=== PATIENT | male | born 1930 | race Caucasian/White ===

== ENCOUNTER 2016-08-14 12:47 | Inpatient (IN) | payer MEDICARE, BC, OTHER ==
[2016-08-14 13:11] LABS: Glucose,Whole Blood 100 mg/dL (75-99)
[2016-08-14] MEDS ORDERED: SODIUM CHLORIDE 0.9% 1,000 ML IV STA (13:14)
[2016-08-14] MEDS ORDERED: PIPERACILLIN-TAZOBACTAM 3.375 GM in DEXTROSE/WATER 1 50ML.BAG IVPB STA (13:50)
[2016-08-14 13:54] LABS: Appearance,Urine Clear (Clear); Bilirubin,Urine Negative (Negative); Glucose,Urine (UA) Negative (Negative); Ketones,Urine 2+ (Negative); Leukocyte Esterase,Urine Negative (Negative); Nitrite,Urine Negative (Negative); PH, Urine 5.5 (5.0-8.0); Protein,Urine Negative (Negative); Specific Gravity,Urine 1.014 (1.001-1.035); UA Billing (MACRO vs. MICRO) CHEM; Urobilinogen,Urine <2.0 mg/dL (<2.0)
[2016-08-14 13:57] LABS: Basophils # (A) 0.1 k/uL (0-0.2); Basophils % (A) 2 %; CH 35.8; CHCM 33.5; Eosinophils # (A) 0.3 k/uL (0-0.7); Eosinophils % (A) 7 %; HCT 45.5 % (39.0-53.0); HDW 2.16; HGB 15.3 gm/dL (13.0-17.5); Luc # (Auto) 0.15; Luc % (Auto) 4; Lymphocytes # (A) 0.5 k/uL (1.0-4.8); Lymphocytes % (A) 12 %; MCHC 33.7 g/dL (31.0-37.0); Macrocytosis Moderate; Mean Platelet Volume 8.1; Monocytes # (A) 0.5 k/uL (0-1.0); Monocytes % (A) 12 %; Neutrophils # (A) 2.6 k/uL (1.3-7.7); Neutrophils % (A) 65 %; RBC 4.25 m/uL (4.30-5.90); RDW 13.2 % (11.5-15.5); WBC 4.1 k/uL (3.8-10.6); WBC (Perox) 4.15
[2016-08-14 14:00] LABS: Partial Thromboplastin Time 24.2 sec (22.0-30.0); Prothrombin Time 9.9 sec (9.0-12.0)
[2016-08-14 14:21] LABS: ALT 43 U/L (21-72); AST 49 U/L (17-59); Alkaline Phosphatase 62 U/L (38-126); Anion Gap 12 mmol/L; Blood Urea Nitrogen 20 mg/dL (9-20); Calcium 9.5 mg/dL (8.4-10.2); Carbon Dioxide 25 mmol/L (22-30); Chloride 98 mmol/L (98-107); Glucose 108 mg/dL (74-99); Non-African American GFR(MDRD) >60 (>60 ml/min/1.73 sqM); Potassium 4.8 mmol/L (3.5-5.1); Sodium 135 mmol/L (137-145); Total Bilirubin 0.6 mg/dL (0.2-1.3); Total Protein 7.2 g/dL (6.3-8.2)
[2016-08-14 14:25] LABS: Creatine Kinase 45 U/L (55-170)
[2016-08-14 14:37] LABS: Creatine Kinase MB 0.5 ng/mL (0.0-2.4); Troponin I <0.012 ng/mL (0.000-0.034)
--- NOTE | 2016-08-14 14:41 | CT ---
EXAMINATION TYPE: CT brain wo con DATE OF EXAM: 08/14/2016 2:18 PM COMPARISON: NONE HISTORY: 86-year-old male weakness TECHNIQUE: Examination was done in axial plane without intravenous contrast. Coronal and sagittal r econstructions performed. CT DLP: 1090.4 mGycm Automated exposure control for dose reduction was used. FINDINGS: There is no evidence of acute intracranial hemorrhage, acute ischemic changes, mass, mass-effect, or extra-axial fluid collection. There is no effacement of cerebral sulci or basal subarachnoid cister ns. There is no hydrocephalus. There is no midline shift. Dietz-white matter distinction is preserv ed. Implant above the right globe. Orbits and globes otherwise intact. Paranasal sinuses and mastoid air cells are pneumatized. Mild to moderate generalized supratentorial volume loss with mild to moderate patchy periventricular and deep white matter hypodensities. IMPRESSION: No acute intracranial abnormality seen. Stable [id number] atrophy and changes of chronic small vessel ischemic disease.
--- NOTE | 2016-08-14 14:42 | XR ---
EXAMINATION TYPE: XR chest 2V DATE OF EXAM: 08/14/2016 2:18 PM COMPARISON: 12/08/2011 HISTORY: 86-year-old male with weakness for one day TECHNIQUE: Frontal and lateral views FINDINGS: Heart is normal size. There are atherosclerotic calcifications within the aorta. Pulmonary vasculatu re within normal limits. Strandy atelectasis in the right greater than left lower lungs. No consolida tion or pleural effusion. Left anterior chest wall pacemaker generator with right atrial and right ventricular leads. IMPRESSION: Strandy lower lung atelectasis. No acute cardiopulmonary process.
[2016-08-14] MEDS ORDERED: ACETAMINOPHEN TAB 500 MG TAB PO STA (15:42)
--- NOTE | 2016-08-14 16:12 | ED ---
Weakness HPI - General Chief complaint: Weakness Stated complaint: Weakness Time Seen by Provider: 08/14/16 13:02 Source: patient Mode of arrival: EMS Limitations: no limitations - History of Present Illness Initial comments: 86 years old male was doing well he went to eat his lunch right after that he felt quite weak and he had a hard time ambulating even in the ER he was quite hard for him he went to urinate, he complained about feeling weak had a fever of 101 in the ER he denies any headache no neck neck stiffness he had a beneficial shortness of breath no chest pain no pleuritic chest pain no abdominal pain no frequency urgency dysuria he does have increased voiding denies any signs of side TIA or CVA - Related Data Home Medications Medication Instructions Recorded Confirmed Albuterol Sulfate [Proventil Hfa] 1 - 2 puff INHALATION RT-QID PRN 09/25/1412/23 Apixaban [Eliquis] 2.5 mg PO BID 09/25/14 08/14/16 Atenolol [Tenormin] 50 mg PO DAILY 09/25/14 08/14/16 Cetirizine HCl [Zyrtec Chewable] 10 mg PO DAILY 09/25/14 08/14/16 Lisinopril [Zestril] 5 mg PO BID 09/25/14 08/14/16 Montelukast [Singulair] 10 mg PO HS 09/25/14 08/14/16 Omeprazole [PriLOSEC] 20 mg PO HS 09/25/14 08/14/16 Primidone [Mysoline] 50 mg PO QAM 09/25/14 08/14/16 Propylene Glycol/Peg 400/Pf 1 drop BOTH EYES QID PRN 09/25/14 08/14/16 [Systane 0.3-0.4% Eye Drops] Simvastatin [Zocor] 20 mg PO HS 09/25/14 08/14/16 Sotalol [Betapace] 80 mg PO BID 09/25/14 08/14/16 traMADol HCl [Ultram] 50 mg PO HS 09/25/14 09/25/14 Acetaminophen Tab [Tylenol Tab] 500 - 1,000 mg PO Q6HR PRN 08/14/16 08/14/16 Acetaminophen-Codeine 300-30mg 1 tab PO HS 08/14/16 08/14/16 [Tylenol #3] Ciprofloxacin HCl [Cipro] 500 mg PO Q12HR 08/14/16 08/14/16 Cyanocobalamin (Vitamin B-12) 1,000 mcg PO DAILY 08/14/16 08/14/16 [Vitamin B-12] Fluticasone Nasal [place] [Flonase 2 spr EA NOSTRIL DAILY PRN 08/14/16 08/14/16 Nasal [place]] Multivitamins, Thera [Multivitamin 1 tab PO DAILY 08/14/16 08/14/16 (formulary)] Primidone [Mysoline] 150 mg PO HS 08/14/16 08/14/16 amLODIPine [Norvasc] 5 mg PO DAILY 08/14/16 08/14/16 cycloSPORINE 0.05% OPHTH SOLN 1 drop BOTH EYES BID 08/14/16 08/14/16 [Restasis] Allergies Allergy/AdvReac Type Severity Reaction Status Date / Time No Known Allergies Allergy Verified 08/14/16 13:31 Review of Systems ROS Statement: Those systems with pertinent positive or pertinent negative responses have been documented in the HPI. ROS Other: All systems not noted in ROS Statement are negative. Past Medical History Past Medical History: Asthma, Coronary Artery Disease (CAD), GERD/Reflux, Hyperlipidemia, Hypertension History of Any Multi-Drug Resistant Organisms: MRSA Date of last positivie culture/infection: 08/06/16 MDRO Source:: Right Axilla Past Surgical History: Heart Catheterization, Pacemaker Additional Past Surgical History / Comment(s): BILATERAL KNEE REPLACED, LEFT HIP REPLACED Past Psychological History: No Psychological Hx Reported Smoking Status: Never smoker Past Alcohol Use History: Daily Past Drug Use History: None Reported General Exam - General Exam Comments Initial Comments: General: The patient is awake, is quite awake he is trying to move from bed and trying to use the urinalysis and noticed some right wrist and is quite unstable on his feet Skin: Skin is warm and dry and no rashes or lesions are noted. Eye: Pupils are equal, round and reactive to light, extra-ocular movements are intact; there is normal conjunctiva bilaterally. Ears, nose, mouth and throat: There are moist mucous membranes and no oral lesions. Neck: The neck is supple, there is no tenderness or JVD. Cardiovascular: There is a regular rate and rhythm. No murmur, rub or gallop is appreciated. Respiratory: To auscultation bilateral, no wheezing no rhonchi no distress respiratory goldberg noticed Gastrointestinal: Soft, non-distended, non-tender abdomen without masses or organomegaly noted. There is no rebound or guarding present. Bowel sounds are unremarkable. Back: There is no tenderness to palpation in the midline. There is no obvious deformity. Musculoskeletal: Normal ROM, no tenderness, There is no pedal edema. There is no calf tenderness or swelling. No cords were appreciated. Neurological: CN II-XII intact, Cranial nerves III through XII are intact. There are no obvious motor or sensory deficits. Coordination appears grossly intact. Speech is normal. Psychiatric: Cooperative, appropriate mood & affect, normal judgment. Limitations: no limitations Course Vital Signs 08/14/16 08/14/16 08/14/16 12:56 13:39 14:35 Temperature 100.9 F H Pulse Rate 79 71 69 Respiratory 20 20 20 Rate Blood Pressure 167/74 134/71 154/84 O2 Sat by Pulse 97 96 96 Oximetry 08/14/16 15:41 Temperature 100.8 F H Pulse Rate 72 Respiratory 20 Rate Blood Pressure 148/75 O2 Sat by Pulse 96 Oximetry During exam and there was about a bit of for right covers he was very weak he was unable to ambulate was started on a broad-spectrum antibiotics fluids and now blood cultures I think he would benefit from IV antibiotics were admitted under Dr. Goldberg service EKG Findings - EKG Comments: EKG Findings:: Him EKG is a paced rhythm is atrial paced rhythm with a prolonged AV conduction ventricular rate is 80 WV interval is 238 QRS duration is 70 QT/QTc is 340/392D elevation or ST depression noticed she Medical Decision Making - Lab Data Result diagrams: 08/14/16 13:05 08/14/16 13:05 Lab Results 08/14/16 08/14/16 08/14/16 Range/Units 13:05 13:05 13:05 WBC 4.1 (3.8-10.6) k/uL RBC 4.25 L (4.30-5.90) m/uL Hgb 15.3 (13.0-17.5) gm/dL Hct 45.5 (39.0-53.0) % MCV 107.0 H (80.0-100.0) fL MCH 36.0 H (25.0-35.0) pg MCHC 33.7 (31.0-37.0) g/dL RDW 13.2 (11.5-15.5) % Plt Count 81 L (150-450) k/uL Neutrophils % 65 % Lymphocytes % 12 % Monocytes % 12 % Eosinophils % 7 % Basophils % 2 % Neutrophils # 2.6 (1.3-7.7) k/uL Lymphocytes # 0.5 L (1.0-4.8) k/uL Monocytes # 0.5 (0-1.0) k/uL Eosinophils # 0.3 (0-0.7) k/uL Basophils # 0.1 (0-0.2) k/uL Macrocytosis Moderate PT (9.0-12.0) sec INR (<1.1) APTT (22.0-30.0) sec Sodium (137-145) mmol/L Potassium (3.5-5.1) mmol/L Chloride (98-107) mmol/L Carbon Dioxide (22-30) mmol/L Anion Gap mmol/L BUN (9-20) mg/dL Creatinine (0.66-1.25) mg/dL Est GFR (MDRD) Af Amer (>60 ml/min/1.73 sqM) Est GFR (MDRD) Non-Af (>60 ml/min/1.73 sqM) Glucose (74-99) mg/dL POC Glucose (mg/dL) (75-99) mg/dL POC Glu Area Manager ID Plasma Lactic Acid [place] (0.7-2.0) mmol/L Calcium (8.4-10.2) mg/dL Total Bilirubin (0.2-1.3) mg/dL AST (17-59) U/L ALT (21-72) U/L Alkaline Phosphatase (38-126) U/L Total Creatine Kinase 45 L (55-170) U/L CK-MB (CK-2) 0.5 (0.0-2.4) ng/mL CK-MB (CK-2) Rel Index 1.1 Troponin I <0.012 (0.000-0.034) ng/mL Total Protein (6.3-8.2) g/dL Albumin (3.5-5.0) g/dL Urine Color Yellow Urine Appearance Clear (Clear) Urine pH 5.5 (5.0-8.0) Ur Specific [place] 1.014 (1.001-1.035) Urine Protein Negative (Negative) Urine Glucose (UA) Negative (Negative) Urine Ketones 2+ H (Negative) Urine Blood Negative (Negative) Urine Nitrite Negative (Negative) Urine Bilirubin Negative (Negative) Urine Urobilinogen <2.0 (<2.0) mg/dL Ur Leukocyte Esterase Negative (Negative) 08/14/16 08/14/16 08/14/16 Range/Units 13:05 13:05 13:05 WBC (3.8-10.6) k/uL RBC (4.30-5.90) m/uL Hgb (13.0-17.5) gm/dL Hct (39.0-53.0) % MCV (80.0-100.0) fL MCH (25.0-35.0) pg MCHC (31.0-37.0) g/dL RDW (11.5-15.5) % Plt Count (150-450) k/uL Neutrophils % % Lymphocytes % % Monocytes % % Eosinophils % % Basophils % % Neutrophils # (1.3-7.7) k/uL Lymphocytes # (1.0-4.8) k/uL Monocytes # (0-1.0) k/uL Eosinophils # (0-0.7) k/uL Basophils # (0-0.2) k/uL Macrocytosis PT 9.9 (9.0-12.0) sec INR 1.0 (<1.1) APTT 24.2 (22.0-30.0) sec Sodium 135 L (137-145) mmol/L Potassium 4.8 (3.5-5.1) mmol/L Chloride 98 (98-107) mmol/L Carbon Dioxide 25 (22-30) mmol/L Anion Gap 12 mmol/L BUN 20 (9-20) mg/dL Creatinine 0.93 (0.66-1.25) mg/dL Est GFR (MDRD) Af Amer >60 (>60 ml/min/1.73 sqM) Est GFR (MDRD) Non-Af >60 (>60 ml/min/1.73 sqM) Glucose 108 H (74-99) mg/dL POC Glucose (mg/dL) (75-99) mg/dL POC Glu Area Manager ID Plasma Lactic Acid [place] 1.3 (0.7-2.0) mmol/L Calcium 9.5 (8.4-10.2) mg/dL Total Bilirubin 0.6 (0.2-1.3) mg/dL AST 49 (17-59) U/L ALT 43 (21-72) U/L Alkaline Phosphatase 62 (38-126) U/L Total Creatine Kinase (55-170) U/L CK-MB (CK-2) (0.0-2.4) ng/mL CK-MB (CK-2) Rel Index Troponin I (0.000-0.034) ng/mL Total Protein 7.2 (6.3-8.2) g/dL Albumin 4.3 (3.5-5.0) g/dL Urine Color Urine Appearance (Clear) Urine pH (5.0-8.0) Ur Specific [place] (1.001-1.035) Urine Protein (Negative) Urine Glucose (UA) (Negative) Urine Ketones (Negative) Urine Blood (Negative) Urine Nitrite (Negative) Urine Bilirubin (Negative) Urine Urobilinogen (<2.0) mg/dL Ur Leukocyte Esterase (Negative) 08/14/16 Range/Units 13:07 WBC (3.8-10.6) k/uL RBC (4.30-5.90) m/uL Hgb (13.0-17.5) gm/dL Hct (39.0-53.0) % MCV (80.0-100.0) fL MCH (25.0-35.0) pg MCHC (31.0-37.0) g/dL RDW (11.5-15.5) % Plt Count (150-450) k/uL Neutrophils % % Lymphocytes % % Monocytes % % Eosinophils % % Basophils % % Neutrophils # (1.3-7.7) k/uL Lymphocytes # (1.0-4.8) k/uL Monocytes # (0-1.0) k/uL Eosinophils # (0-0.7) k/uL Basophils # (0-0.2) k/uL Macrocytosis PT (9.0-12.0) sec INR (<1.1) APTT (22.0-30.0) sec Sodium (137-145) mmol/L Potassium (3.5-5.1) mmol/L Chloride (98-107) mmol/L Carbon Dioxide (22-30) mmol/L Anion Gap mmol/L BUN (9-20) mg/dL Creatinine (0.66-1.25) mg/dL Est GFR (MDRD) Af Amer (>60 ml/min/1.73 sqM) Est GFR (MDRD) Non-Af (>60 ml/min/1.73 sqM) Glucose (74-99) mg/dL POC Glucose (mg/dL) 100 H (75-99) mg/dL POC Glu Area Manager ID Lex Diaz Plasma Lactic Acid [place] (0.7-2.0) mmol/L Calcium (8.4-10.2) mg/dL Total Bilirubin (0.2-1.3) mg/dL AST (17-59) U/L ALT (21-72) U/L Alkaline Phosphatase (38-126) U/L Total Creatine Kinase (55-170) U/L CK-MB (CK-2) (0.0-2.4) ng/mL CK-MB (CK-2) Rel Index Troponin I (0.000-0.034) ng/mL Total Protein (6.3-8.2) g/dL Albumin (3.5-5.0) g/dL Urine Color Urine Appearance (Clear) Urine pH (5.0-8.0) Ur Specific [place] (1.001-1.035) Urine Protein (Negative) Urine Glucose (UA) (Negative) Urine Ketones (Negative) Urine Blood (Negative) Urine Nitrite (Negative) Urine Bilirubin (Negative) Urine Urobilinogen (<2.0) mg/dL Ur Leukocyte Esterase (Negative) Disposition Clinical Impression: Fever, Thrombocytopenia, Generalized weakness, Sepsis Disposition: ADMITTED IP TO THIS [facility] Condition: Good
[2016-08-14] MEDS ORDERED: NALOXONE 0.4 MG/ML 1 ML VIAL IV PRN (16:45)
[2016-08-14] MEDS ORDERED: ARTIFICIAL TEARS-HYPROMELLOSE DROPS 15 ML BTL BOTH EYES PRN (16:52)
[2016-08-14] MEDS ORDERED: FLUTICASONE 50MCG/SPRAY NASAL 16GM EA NOSTRIL PRN (16:52)
[2016-08-14] MEDS ORDERED: ALBUTEROL NEBULIZED 2.5 MG/3 ML INHALATION PRN (16:52)
[2016-08-14] MEDS ORDERED: ACETAMINOPHEN TAB 325 MG TAB PO PRN (20:15)
[2016-08-14] MEDS: cycloSPORINE 0.05% OPHTH 0.4 ML DROPERETTE BOTH EYES SCH (20:33)
[2016-08-14] MEDS: PRIMIDONE 50 MG TAB PO SCH (20:33)
[2016-08-14] MEDS: PANTOPRAZOLE 40 MG TABLET PO SCH (20:33)
[2016-08-14] MEDS: LISINOPRIL 5 MG TAB PO SCH (20:33)
[2016-08-14] MEDS: APIXABAN 2.5 MG TABLET PO SCH (20:33)
[2016-08-14] MEDS: SOTALOL 80 MG TAB PO SCH (20:33)
[2016-08-14] MEDS: MONTELUKAST 10 MG TAB PO SCH (20:33)
[2016-08-14] MEDS: Acetaminophen-Codeine 300-30mg TAB PO SCH (20:33)
[2016-08-14] MEDS: ATORVASTATIN 10 MG TAB PO SCH (20:33)
[2016-08-14] MEDS: traMADol 50 MG TAB PO SCH (20:34)
[2016-08-14] MEDS: PIPERACILLIN-TAZOBACTAM 3.375 GM in DEXTROSE/WATER 1 50ML.BAG IVPB SCH (23:09)
[2016-08-15] MEDS: PIPERACILLIN-TAZOBACTAM 3.375 GM in DEXTROSE/WATER 1 50ML.BAG IVPB SCH ×2 (07:44→15:16)
[2016-08-15] MEDS: SOTALOL 80 MG TAB PO SCH ×2 (07:45→20:25)
[2016-08-15] MEDS: APIXABAN 2.5 MG TABLET PO SCH ×2 (07:46→20:23)
[2016-08-15] MEDS: cycloSPORINE 0.05% OPHTH 0.4 ML DROPERETTE BOTH EYES SCH ×2 (07:46→20:24)
[2016-08-15] MEDS: ATENOLOL 50 MG TAB PO SCH (07:46)
[2016-08-15] MEDS: PRIMIDONE 50 MG TAB PO SCH ×2 (07:47→20:25)
[2016-08-15] MEDS: LISINOPRIL 5 MG TAB PO SCH ×2 (07:47→20:24)
[2016-08-15] MEDS: amLODIPine 5 MG TAB PO SCH (07:47)
[2016-08-15] MEDS: LORATADINE 10 MG TAB PO SCH ×2 (07:48→07:53)
--- NOTE | 2016-08-15 08:22 | HP ---
DATE OF ADMISSION: 08/14/2016 CHIEF COMPLAINT: Generalized weakness. HISTORY OF PRESENT ILLNESS: Mr. Sparrow is an 86 -year-old male with a past medical history of coronary artery disease, GERD, hypertension, asthma, who was brought into the hospital with a chief complaint of generalized weakness. The patient is a poor historian whose was contacted over the phone. She states patient has been feeling weak and tired for the past couple of days on night. The patient had difficulty up from his chair and going to his bed. He had generalized weakness earlier and then he was feeling okay and then when they went to each lunch, he felt very weak at that place and could not get up from his chair and so he was brought into the ER for further evaluation and treatment. The patient had a fever of 101 in the ER but he denies having any fever and no difficulty in breathing, no abdominal pain, no nausea or vomiting. He denies having any headache. No neck pain or neck stiffness. The patient denies having any dysuria or hematuria. The patient had a recent infection in his right axilla. He had an I&D and has the wound cultures growing MRSA for which he was placed on Ciprofloxacin that he has been taking. The patient denies having any swelling in his hand. REVIEW OF SYSTEMS: CONSTITUTIONAL: Denies having any fevers, chills or rigors. CARDIAC: No chest pain or palpitations. GI: No nausea, vomiting, or diarrhea. : No dysuria or hematuria. 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 He has generalized weakness. No loss of consciousness. No headaches. ENDOCRINE: Denies having any hypoglycemic episodes. RHEUMATOLOGY: No history of joint pains or swelling. All 13 review of systems done and negative except mentioned in the HPI. PAST MEDICAL HISTORY: Significant for asthma, coronary artery disease, GERD, hypertension, hyperlipidemia, pacemaker in place. PAST SURGICAL HISTORY: Pacemaker placement and tonsillectomy, heart catheterization. SOCIAL HISTORY: former smoker, Occasional alcohol. FAMILY HISTORY: Positive for hypertension. MEDICATIONS: 1. Albuterol one to two puffs p.r.n. 2. Alwpyxbym92 mg p.o. in the morning. 3. Zocor 20 mg p.o. q.h.s. 4. Prilosec 20mg p.o. q.h.s. 5. Singular 10 mg p.o. q.h.s. 6. Cetrizine 10 mg p.o. daily. 7. Sotalol 80 mg p.o. b.i.d. 8. Lisinopril 5 mg p.o. b.i.d. 9. Atenolol 50 mg p.o. b.i.d. 10. Apixaban 2.5 mg p.o. b.i.d. 11. Tramadol 50 mg p.o. q.h.s. 12. Propylene glycol eye drops in both eyes 4 times a day. 13. Tylenol #3. 14. Primidone 160 mg p.o. q.h.s. 15. Amlodipine 5 mg p.o. daily. 16. Cyanocobalamin 1000 mcg daily 17. Cyclosporine eye drops in both eyes b.i.d. 18. Mirtazapine 1 tablet p.o. daily. 19. Ciprofloxacin 500 milligrams p.o. q.12 hours. 20. Fluticasone nasal spray. Patient's vital signs at the time of admission he had a fever of 100.8 and he had heart rate of 79, respiratory rate 20, blood pressure 169/74, saturating 99% on room air. GENERAL: The patient appears to be in acute distress. Denies having any active complaints. HEENT: Eyes equal and reactive to light. No pallor. NECK: No JVD. No thyromegaly. CARDIOVASCULAR: S1, S2 heard. The patient has a pacemaker in place. RESPIRATORY: Bilateral breath sounds are positive . ABDOMEN: Soft, nontender, bowel sounds positive. EXTREMITIES: Mild trace edema. CENTRAL NERVOUS SYSTEM: No focal weakness The patient has generalized weakness. PSYCHIATRIC: Appropriate mood and affect. SKIN: No rashes. Patient's labs: WBC 4.1, hemoglobin is 15.3, platelets 81. Sodium 135, potassium 4.8, chloride 98, bicarb 25, BUN 20, creatinine 0.93. Patient had a recent wound culture showing MRSA. Current urine culture is pending. ASSESSMENT AND PLAN: 1. Fever- unclear about his source of infection . He had cellulitis of his right axilla and had incision and drainage and blood and wound cultures showing Methicillin-resistant Staph aureus. Obtain blood cultures and wound cultures. 2. Generalized weakness probably secondary to #1. 3. Thrombocytopenia, unclear etiology. 4. Hyperlipidemia. 5. Hypertension. 6. Pacemaker placement in the past. PLAN: As the patient had fever, he had Blood cultures pending . He had a recent MRSA infection, he has been started on Zosyn that will be continued. Will follow up blood cultures and urine cultures. We will continue with the rest of his home medications. The treatment care plan was discussed in detail with the patient and his over the phone. Further recommendations depending on the progress of the patient. ISMAEL
[2016-08-15 08:48] LABS: Aty Lym Flag Slight; CH 35.2; CHCM 33.3; HCT 42.6 % (39.0-53.0); HDW 2.26; HGB 14.6 gm/dL (13.0-17.5); MCH 36.5 pg (25.0-35.0); MCHC 34.4 g/dL (31.0-37.0); Macrocytosis Slight; Mean Platelet Volume 8.5; RBC 4.01 m/uL (4.30-5.90); RDW 12.8 % (11.5-15.5); WBC 4.5 k/uL (3.8-10.6); WBC (Perox) 4.66
[2016-08-15 08:50] LABS: Anion Gap 10 mmol/L; Blood Urea Nitrogen 14 mg/dL (9-20); Calcium 9.2 mg/dL (8.4-10.2); Carbon Dioxide 26 mmol/L (22-30); Chloride 99 mmol/L (98-107); Glucose 96 mg/dL (74-99); Non-African American GFR(MDRD) >60 (>60 ml/min/1.73 sqM); Potassium 4.3 mmol/L (3.5-5.1); Sodium 135 mmol/L (137-145)
[2016-08-15 09:03] LABS: Add Differential Manual Differential
[2016-08-15 09:04] LABS: Nucleated Red Blood Cells 0 /100 WBC (0-0); Polychromasia Present; Total Cells Counted 100
--- NOTE | 2016-08-15 09:54 | P.GSCN ---
History of Present Illness Consult date: 08/15/16 Reason for Consult: Abscess right axilla History of present illness: The patient reports some swelling and discomfort in the right axilla. He had seen his primary care doctor as outpatient and had a culture done showing MRSA. He came in yesterday feeling weak and was admitted for further workup. He's not having much discomfort in the axilla. No drainage. No previous history of MRSA no previous history of infections in the axilla. Review of Systems All systems: negative Past Medical History Past Medical History: Asthma, Coronary Artery Disease (CAD), GERD/Reflux, Hyperlipidemia, Hypertension History of Any Multi-Drug Resistant Organisms: MRSA Year Discovered:: 08/06/16 MDRO Source:: Right Axilla Past Surgical History: Heart Catheterization, Pacemaker, Tonsillectomy Additional Past Surgical History / Comment(s): BILATERAL KNEE REPLACED, LEFT HIP REPLACED Type of Cardiac Device: Unknown Device Placement Date:: unknown Past Psychological History: No Psychological Hx Reported Smoking Status: Never smoker Past Alcohol Use History: Daily Past Drug Use History: None Reported Medications and Allergies Home Medications Medication Instructions Recorded Confirmed Type Albuterol Sulfate [Proventil Hfa] 1 - 2 puff INHALATION RT-QID PRN 09/25/1412/23 History Apixaban [Eliquis] 2.5 mg PO BID 09/25/14 08/14/16 History Atenolol [Tenormin] 50 mg PO DAILY 09/25/14 08/14/16 History Cetirizine HCl [Zyrtec Chewable] 10 mg PO DAILY 09/25/14 08/14/16 History Lisinopril [Zestril] 5 mg PO BID 09/25/14 08/14/16 History Montelukast [Singulair] 10 mg PO HS 09/25/14 08/14/16 History Omeprazole [PriLOSEC] 20 mg PO HS 09/25/14 08/14/16 History Primidone [Mysoline] 50 mg PO QAM 09/25/14 08/14/16 History Propylene Glycol/Peg 400/Pf 1 drop BOTH EYES QID PRN 09/25/14 08/14/16 History [Systane 0.3-0.4% Eye Drops] Simvastatin [Zocor] 20 mg PO HS 09/25/14 08/14/16 History Sotalol [Betapace] 80 mg PO BID 09/25/14 08/14/16 History traMADol HCl [Ultram] 50 mg PO HS 09/25/14 09/25/14 History Acetaminophen Tab [Tylenol Tab] 500 - 1,000 mg PO Q6HR PRN 08/14/16 08/14/16 History Acetaminophen-Codeine 300-30mg 1 tab PO HS 08/14/16 08/14/16 History [Tylenol #3] Ciprofloxacin HCl [Cipro] 500 mg PO Q12HR 08/14/16 08/14/16 History Cyanocobalamin (Vitamin B-12) 1,000 mcg PO DAILY 08/14/16 08/14/16 History [Vitamin B-12] Fluticasone Nasal [place] [Flonase 2 spr EA NOSTRIL DAILY PRN 08/14/16 08/14/16 History Nasal [place]] Multivitamins, Thera [Multivitamin 1 tab PO DAILY 08/14/16 08/14/16 History (formulary)] Primidone [Mysoline] 150 mg PO HS 08/14/16 08/14/16 History amLODIPine [Norvasc] 5 mg PO DAILY 08/14/16 08/14/16 History cycloSPORINE 0.05% OPHTH SOLN 1 drop BOTH EYES BID 08/14/16 08/14/16 History [Restasis] Allergies Allergy/AdvReac Type Severity Reaction Status Date / Time No Known Allergies Allergy Verified 08/14/16 13:31 Surgical - Exam Osteopathic Statement: *. No significant issues noted on an osteopathic structural exam other than those noted in the History and Physical/Consult. Vital Signs Temp Pulse Resp BP Pulse Ox 100.9 F H 79 20 167/74 97 08/14/16 12:56 08/14/16 12:56 08/14/16 12:56 08/14/16 12:56 08/14/16 12:56 - General well developed, well nourished, no distress - Integumentary There is an area approximately 3 x 4 cm in the right axillary skin with some mild erythema and folliculitis. No drainable abscess. Results - Labs 08/15/16 08:08 08/15/16 08:08 Abnormal Lab Results - Last 24 Hours (Table) 08/15/16 08/15/16 Range/Units 08:08 08:08 RBC 4.01 L (4.30-5.90) m/uL MCV 106.0 H (80.0-100.0) fL MCH 36.5 H (25.0-35.0) pg Plt Count 80 L (150-450) k/uL Sodium 135 L (137-145) mmol/L Diabetes panel 08/15/16 Range/Units 08:08 Sodium 135 L (137-145) mmol/L Potassium 4.3 (3.5-5.1) mmol/L Chloride 99 (98-107) mmol/L Carbon Dioxide 26 (22-30) mmol/L BUN 14 (9-20) mg/dL Creatinine 0.84 (0.66-1.25) mg/dL Glucose 96 (74-99) mg/dL Calcium 9.2 (8.4-10.2) mg/dL Calcium panel 08/15/16 Range/Units 08:08 Calcium 9.2 (8.4-10.2) mg/dL Pituitary panel 08/15/16 Range/Units 08:08 Sodium 135 L (137-145) mmol/L Potassium 4.3 (3.5-5.1) mmol/L Chloride 99 (98-107) mmol/L Carbon Dioxide 26 (22-30) mmol/L BUN 14 (9-20) mg/dL Creatinine 0.84 (0.66-1.25) mg/dL Glucose 96 (74-99) mg/dL Calcium 9.2 (8.4-10.2) mg/dL Adrenal panel 08/15/16 Range/Units 08:08 Sodium 135 L (137-145) mmol/L Potassium 4.3 (3.5-5.1) mmol/L Chloride 99 (98-107) mmol/L Carbon Dioxide 26 (22-30) mmol/L BUN 14 (9-20) mg/dL Creatinine 0.84 (0.66-1.25) mg/dL Glucose 96 (74-99) mg/dL Calcium 9.2 (8.4-10.2) mg/dL Assessment and Plan (1) Cellulitis of axilla, right Status: Acute Plan: I see no evidence of drainable abscess at this time. He reports being told this was MRSA. Therefore I would add appropriate coverage for that. If anything changes we'll be happy to reevaluate him.
[2016-08-15] MEDS: CYANOCOBALAMIN 500 MCG TAB PO SCH (13:32)
[2016-08-15] MEDS: MULTIVITAMINS, THERA 1 EACH TAB PO SCH (13:33)
[2016-08-15] MEDS ORDERED: IV VANCOMYCIN PER PHARMACY 1 EACH MISC MISCELLANE PRN (16:09)
--- NOTE | 2016-08-15 16:12 | P.CNPUL ---
History of Present Illness Consult date: 08/15/16 Chief complaint: Fevers History of present illness: This is an 86-year-old male patient was admitted for generalized weakness. The patient was in a good state of health. He had some carbuncles in his right axilla for which she was seen by dermatology and he underwent incision and drainage and according to him the cultures came back positive for MRSA. The patient was given Bactrim on outpatient basis at least by the reported history. In the medical records, it was determined that the patient was given ciprofloxacin yet the patient felt that he was given a combination of Bactrim and mupirocin. The patient went out with his to have lunch and he felt very weak and at the end of his meal the patient felt quite sick. In the emergency was found to have a temperature of 11.0. At that point the right axillary was inspected and there is some minimal erythema without any flocculation or abscess formation. Blood cultures were sent. The patient was started on a combination of Zosyn and Bactrim and he was admitted to the hospital. This morning it is awake alert and sitting up on a chair. No change in mental status. No fever. No tachycardia. No drop in urine output. He is hemodynamically stable. No chest pain. No cough or sputum production. No dysuria fixed or urgency. No nausea or vomiting. No other significant events over the past 24 hours. He is followed up by Dr. Espinoza on outpatient basis. Review of Systems Full review of system was done and the positive findings are almost above in history of present illness. Past Medical History Past Medical History: Asthma, Coronary Artery Disease (CAD), GERD/Reflux, Hyperlipidemia, Hypertension Additional Past Medical History / Comment(s): Pacemaker insertion History of Any Multi-Drug Resistant Organisms: MRSA Date of last positivie culture/infection: 08/06/16 MDRO Source:: Right Axilla Past Surgical History: Heart Catheterization, Pacemaker, Tonsillectomy Additional Past Surgical History / Comment(s): BILATERAL KNEE REPLACED, LEFT HIP REPLACED Type of Cardiac Device: Unknown Device Placement Date:: unknown Past Psychological History: No Psychological Hx Reported Smoking Status: Never smoker Past Alcohol Use History: Daily Past Drug Use History: None Reported Medications and Allergies Home Medications Medication Instructions Recorded Confirmed Type Albuterol Sulfate [Proventil Hfa] 1 - 2 puff INHALATION RT-QID PRN 09/25/1412/23 History Apixaban [Eliquis] 2.5 mg PO BID 09/25/14 08/14/16 History Atenolol [Tenormin] 50 mg PO DAILY 09/25/14 08/14/16 History Cetirizine HCl [Zyrtec Chewable] 10 mg PO DAILY 09/25/14 08/14/16 History Lisinopril [Zestril] 5 mg PO BID 09/25/14 08/14/16 History Montelukast [Singulair] 10 mg PO HS 09/25/14 08/14/16 History Omeprazole [PriLOSEC] 20 mg PO HS 09/25/14 08/14/16 History Primidone [Mysoline] 50 mg PO QAM 09/25/14 08/14/16 History Propylene Glycol/Peg 400/Pf 1 drop BOTH EYES QID PRN 09/25/14 08/14/16 History [Systane 0.3-0.4% Eye Drops] Simvastatin [Zocor] 20 mg PO HS 09/25/14 08/14/16 History Sotalol [Betapace] 80 mg PO BID 09/25/14 08/14/16 History traMADol HCl [Ultram] 50 mg PO HS 09/25/14 09/25/14 History Acetaminophen Tab [Tylenol Tab] 500 - 1,000 mg PO Q6HR PRN 08/14/16 08/14/16 History Acetaminophen-Codeine 300-30mg 1 tab PO HS 08/14/16 08/14/16 History [Tylenol #3] Ciprofloxacin HCl [Cipro] 500 mg PO Q12HR 08/14/16 08/14/16 History Cyanocobalamin (Vitamin B-12) 1,000 mcg PO DAILY 08/14/16 08/14/16 History [Vitamin B-12] Fluticasone Nasal [place] [Flonase 2 spr EA NOSTRIL DAILY PRN 08/14/16 08/14/16 History Nasal [place]] Multivitamins, Thera [Multivitamin 1 tab PO DAILY 08/14/16 08/14/16 History (formulary)] Primidone [Mysoline] 150 mg PO HS 08/14/16 08/14/16 History amLODIPine [Norvasc] 5 mg PO DAILY 08/14/16 08/14/16 History cycloSPORINE 0.05% OPHTH SOLN 1 drop BOTH EYES BID 08/14/16 08/14/16 History [Restasis] Allergies Allergy/AdvReac Type Severity Reaction Status Date / Time No Known Allergies Allergy Verified 08/14/16 13:31 Physical Exam Vitals: Vital Signs Temp Pulse Pulse Resp BP BP Pulse Ox 08/15/16 08:00 20 08/15/16 07:00 100.1 F H 67 20 136/75 93 L 08/14/16 23:00 97.2 F L 62 16 128/71 100 08/14/16 19:10 97.5 F L 76 20 149/85 100 08/14/16 16:59 99.9 F H 88 20 145/84 97 Intake and Output 08/15/16 08/15/16 08/15/16 06:59 14:59 22:59 Intake Total 340 Output Total 400 200 Balance -400 140 Intake: Intake, IV Titration 100 Amount Piperacillin-Tazobactam 3 100 .375 gm In Dextrose/Water 1 50ml.bag @ 12.5 mls/hr IVPB Q8HR [facility] Rx#: [id number] Oral 240 Output: Urine 400 200 Other: Voiding Method Bedside Commode Urinal Diaper Incontinent # Voids 3 Head exam was generally normal. There was no scleral icterus or corneal arcus. Mucous membranes were moist.Neck was supple and without jugular venous distension, thyromegaly, or carotid bruits. Carotids were easily palpable bilaterally. There was no adenopathy.Lungs were clear to auscultation and percussion, and with normal diaphragmatic excursion. No wheezes or rales were noted. Heart sounds are regular, positive psoas and the patient is a pacemaker over the left anterior chest area.Abdominal exam revealed normal bowel sounds. The abdomen was soft, non-tender, and without masses, organomegaly, or appreciable enlargement of the abdominal aorta.Examination of the extremities revealed easily palpable radial, femoral and pedal pulses. There was no cyanosis , clubbing or edema. The right axillary area shows the skin is a bit erythematous and this area is involved to cover around 3-4 cm of the axillary skin. There is also few carbuncles that have no active drainage or open wounds. Results - Laboratory Findings CBC and BMP: 08/15/16 08:08 08/15/16 08:08 PT/INR, D-dimer PT 9.9 sec (9.0-12.0) 08/14/16 13:05 INR 1.0 (<1.1) 08/14/16 13:05 Abnormal lab findings: Abnormal Labs 08/15/16 08/15/16 08:08 08:08 RBC 4.01 L MCV 106.0 H MCH 36.5 H Plt Count 80 L Sodium 135 L Assessment and Plan Plan: Assessment 1 right axillary cellulitis with some few follicles/folliculitis/carbuncles that are a bit swollen yet there is no active drainage or flocculation of abscess collection. The patient had a recent I&D and the cultures were positive for MRSA. 2 generalized weakness and fever. Rule out sepsis. Cultures still pending for now. 3 chronic thrombocytopenia 4 hyperlipidemia 6 hypertension 7 permanent pacemaker insertion 8 long-term anticoagulation utilizing Apixaban Plan Put the patient on IV vancomycin. Awaiting cultures. May ultimately discharged patient home on Bactrim if the cellulitis improved the patient's blood cultures come back negative. No need for any further incisional drainage. We'll continue to follow. Cellulitis improves
[2016-08-15] MEDS ORDERED: VANCOMYCIN 1,500 MG in SODIUM CHLORIDE 0.9% 250 ML IVPB SCH (18:00)
[2016-08-15] MEDS: Acetaminophen-Codeine 300-30mg TAB PO SCH (20:22)
[2016-08-15] MEDS: VANCOMYCIN 1,500 MG in SODIUM CHLORIDE 0.9% 250 ML IVPB SCH (20:23)
[2016-08-15] MEDS: ATORVASTATIN 10 MG TAB PO SCH (20:24)
[2016-08-15] MEDS: PANTOPRAZOLE 40 MG TABLET PO SCH (20:24)
[2016-08-15] MEDS: traMADol 50 MG TAB PO SCH (20:25)
[2016-08-15] MEDS: MONTELUKAST 10 MG TAB PO SCH (20:25)
[2016-08-15] MEDS ORDERED: SULFAMETHOX-TMP 800-160MG 1 EACH TAB PO SCH (21:00)
[2016-08-16] MEDS: ATENOLOL 50 MG TAB PO SCH (07:44)
[2016-08-16] MEDS: cycloSPORINE 0.05% OPHTH 0.4 ML DROPERETTE BOTH EYES SCH ×2 (07:44→20:22)
[2016-08-16] MEDS: SOTALOL 80 MG TAB PO SCH ×2 (07:44→20:22)
[2016-08-16] MEDS: VANCOMYCIN 1,500 MG in SODIUM CHLORIDE 0.9% 250 ML IVPB SCH ×2 (07:44→18:05)
[2016-08-16] MEDS: LISINOPRIL 5 MG TAB PO SCH ×2 (07:44→20:22)
[2016-08-16] MEDS: APIXABAN 2.5 MG TABLET PO SCH ×2 (07:44→20:22)
[2016-08-16] MEDS: PRIMIDONE 50 MG TAB PO SCH (07:44)
[2016-08-16] MEDS: amLODIPine 5 MG TAB PO SCH (07:44)
[2016-08-16] MEDS: LORATADINE 10 MG TAB PO SCH (07:44)
[2016-08-16 09:03] LABS: Basophils % (A) 1 %; CHCM 33.7; Eosinophils # (A) 0.4 k/uL (0-0.7); Eosinophils % (A) 10 %; HCT 41.7 % (39.0-53.0); HDW 2.34; HGB 14.2 gm/dL (13.0-17.5); Luc # (Auto) 0.16; Luc % (Auto) 4; Lymphocytes # (A) 1.4 k/uL (1.0-4.8); Lymphocytes % (A) 33 %; MCH 35.5 pg (25.0-35.0); MCHC 34.1 g/dL (31.0-37.0); MCV 104.2 fL (80.0-100.0); Macrocytosis Slight; Mean Platelet Volume 8.5; Monocytes # (A) 0.4 k/uL (0-1.0); Monocytes % (A) 9 %; Neutrophils # (A) 1.9 k/uL (1.3-7.7); Neutrophils % (A) 44 %; RDW 12.7 % (11.5-15.5); WBC 4.3 k/uL (3.8-10.6); WBC (Perox) 4.44
[2016-08-16 09:09] LABS: Anion Gap 8 mmol/L; Blood Urea Nitrogen 11 mg/dL (9-20); Calcium 9.2 mg/dL (8.4-10.2); Carbon Dioxide 22 mmol/L (22-30); Chloride 107 mmol/L (98-107); Glucose 123 mg/dL (74-99); Non-African American GFR(MDRD) >60 (>60 ml/min/1.73 sqM); Potassium 3.9 mmol/L (3.5-5.1); Sodium 137 mmol/L (137-145)
--- NOTE | 2016-08-16 09:37 | PN ---
DATE OF SERVICE: 08/15/2016 Mr. Sparrow is an 86-year-old male with the past medical history of CAD, GERD, hypertension, asthma, brought into the hospital with the chief complaint of generalized weakness. The patient is poor historian. Patient had generalized weakness, was not able to get up from the chair when he was eating in the restaurant and so brought into the ED. At the time of admission, patient did have a fever and so he was started on antibiotics and admitted for possible sepsis. Patient recently had right cellulitis for which he was put on ciprofloxacin. In the hospital, he has been started on Zosyn. A surgical consult was also obtained but the right axilla was not having an abscess, it is just cellulitis and so he is currently being continued on antibiotics. REVIEW OF SYSTEMS: CONSTITUTIONAL: He denies having any fever, chills or rigors. RESPIRATORY: No cough. No difficulty in breathing. GI: Patient had 2 loose bowel movements this morning, nonbloody. He denies having any abdominal pain, nausea, vomiting. : No dysuria or hematuria. Patient's medications have been reviewed. He is on Tylenol No.3, albuterol, amlodipine, Eliquis, atenolol, Lipitor, vitamin B12, cyclosporine eye drops, fluticasone nasal spray, Zestril, Claritin, Singulair, multivitamin, Narcan, Protonix, Primidone, sotalol, Tramadol and vancomycin. Patient's vitals: Temperature is 100.1, heart rate 60, respiratory rate 20, blood pressure 136/75, saturating at 93% on room air. GENERAL EXAMINATION: Patient appears to be in no acute distress. HEAD: Atraumatic, normocephalic. Pupils round and reactive to light, mucous membranes are moist. NECK: Supple. No JVD. CARDIOVASCULAR: S1, S2 heard. No additional sounds. Patient has a pacemaker in place over the anterior left chest wall. Abdomen is soft. Bowel sounds are positive, soft, nontender, no organomegaly. EXTREMITIES: No edema. No cyanosis, no edema. No clubbing. Right axilla shows small abscess with 2 pus points. PATIENT'S LABS: White count of 4.5, hemoglobin is 14.6, platelets of 80, sodium 135, potassium 4.3, chloride 99, bicarb 26, BUN 14, creatinine 0.84. ASSESSMENT AND PLAN: 1. Fever, unclear about the source of infection. He has cellulitis of the right axilla, had a recent incision and drainage. The wound cultures were growing methicillin-resistant Staphylococcus aureus. The blood cultures are currently pending. He was initially given Zosyn but this was changed to vancomycin by Dr. Xavier today. Blood cultures are still pending. 2. Generalized weakness, probably secondary to #1. 3. Thrombocytopenia, unclear etiology, chronic. 4. Hyperlipidemia. 5. Hypertension. 6. Pacemaker in place. PLAN: The plan is to continue the patient on IV vancomycin for his recent MRSA infection. Blood cultures pending at this time. Continue with the rest of his home medications regimen. The patient's is at the bedside. The treatment care plan was discussed with the patient and the family and his at the bedside in detail. Further recommendations depending on the progress of the patient. RADHAD
[2016-08-16] MEDS: CYANOCOBALAMIN 500 MCG TAB PO SCH (12:22)
[2016-08-16] MEDS: MULTIVITAMINS, THERA 1 EACH TAB PO SCH (12:22)
--- NOTE | 2016-08-16 15:04 | P.PN ---
Subjective Principal diagnosis: Acute maxillary cellulitis secondary to MRSA This is an 86-year-old male patient was admitted for generalized weakness. The patient was in a good state of health. He had some carbuncles in his right axilla for which she was seen by dermatology and he underwent incision and drainage and according to him the cultures came back positive for MRSA. The patient was given Bactrim on outpatient basis at least by the reported history. In the medical records, it was determined that the patient was given ciprofloxacin yet the patient felt that he was given a combination of Bactrim and mupirocin. The patient went out with his to have lunch and he felt very weak and at the end of his meal the patient felt quite sick. In the emergency was found to have a temperature of 11.0. At that point the right axillary was inspected and there is some minimal erythema without any flocculation or abscess formation. Blood cultures were sent. The patient was started on a combination of Zosyn and Bactrim and he was admitted to the hospital. This morning it is awake alert and sitting up on a chair. No change in mental status. No fever. No tachycardia. No drop in urine output. He is hemodynamically stable. No chest pain. No cough or sputum production. No dysuria fixed or urgency. No nausea or vomiting. No other significant events over the past 24 hours. He is followed up by Dr. Espinoza on outpatient basis. Seen on 08/16/2016, patient is doing relatively well, continues to remain generally weak, and his weakness is relatively chronic. Today I felt that my slow and may be causing some of his symptoms, and I went ahead and cut down the dose to 50 mg instead of 200 mg daily. All his labs were reviewed, CBC is relatively normal platelets are coming down to 68,000 electrolytes and renal profile are normal. Blood cultures are negative so far. His most recent wound culture from his right axillary area was positive for MRSA. Patient remains on vancomycin. Objective - Vital Signs Vital signs: Vital Signs Temp 97.4 F L 08/16/16 07:00 Pulse 81 08/16/16 07:00 Resp 18 08/16/16 07:00 BP 155/89 08/16/16 07:00 Pulse Ox 98 08/16/16 07:00 Intake & Output 08/15/16 08/16/16 08/16/16 18:59 06:59 18:59 Intake Total 340 440 Output Total 200 950 600 Balance 140 -950 -160 Intake: Intake, IV Titration 100 Amount Piperacillin-Tazobactam 3 100 .375 gm In Dextrose/Water 1 50ml.bag @ 12.5 mls/hr IVPB Q8HR [facility] Rx#: [id number] Oral 240 440 Output: Urine 200 950 600 Other: Voiding Method Bedside Commode Urinal Urinal Diaper Incontinent # Voids 2 # Bowel Movements 1 1 - Exam Head exam was generally normal. There was no scleral icterus or corneal arcus. Mucous membranes were moist.Neck was supple and without jugular venous distension, thyromegaly, or carotid bruits. Carotids were easily palpable bilaterally. There was no adenopathy.Lungs were clear to auscultation and percussion, and with normal diaphragmatic excursion. No wheezes or rales were noted. Heart sounds are regular, positive psoas and the patient is a pacemaker over the left anterior chest area.Abdominal exam revealed normal bowel sounds. The abdomen was soft, non-tender, and without masses, organomegaly, or appreciable enlargement of the abdominal aorta.Examination of the extremities revealed easily palpable radial, femoral and pedal pulses. There was no cyanosis , clubbing or edema. The right axillary area shows the skin is a bit erythematous and this area is involved to cover around 3-4 cm of the axillary skin. There is also few carbuncles that have no active drainage or open wounds. - Labs CBC & Chem 7: 08/16/16 08:32 08/16/16 08:26 Labs: Abnormal Lab Results - Last 24 Hours (Table) 08/16/16 08/16/16 Range/Units 08:26 08:32 RBC 4.00 L (4.30-5.90) m/uL MCV 104.2 H (80.0-100.0) fL MCH 35.5 H (25.0-35.0) pg Plt Count 68 L (150-450) k/uL Glucose 123 H (74-99) mg/dL Microbiology - Last 24 Hours (Table) 08/15/16 07:56 Stool Culture - Preliminary Stool Assessment and Plan Plan: 1 right axillary cellulitis with some few follicles/folliculitis/carbuncles that are a bit swollen yet there is no active drainage or flocculation of abscess collection. The patient had a recent I&D and the cultures were positive for MRSA. 2 generalized weakness and fever. Rule out sepsis. Cultures still pending for now. 3 chronic thrombocytopenia 4 hyperlipidemia 6 hypertension 7 permanent pacemaker insertion 8 long-term anticoagulation utilizing Apixaban Recommendation: Continue present treatment plan, consider discharge planning in the next 24 hours. Time with Patient: Less than 30
--- NOTE | 2016-08-16 16:11 | P.PN ---
Subjective Principal diagnosis: Right axillary cellulitis 86-year-old gentleman with history of hypertension, prior pacemaker implantation, GERD, who presented to the hospital with symptoms of generalized weakness. She was also found to have cellulitis with associated temperature of 101. Recent infection in his right axilla, I&D was performed and the wound cultures are growing MRSA for which the patient is on antibiotics. Cardiology was requested to see the patient and interrogate his permanent pacemaker. The device rep was in today, interrogated the pacemaker which is functioning appropriately. It does appear patient had one brief episode of atrial fibrillation in July, however has remained in normal sinus rhythm since that time and device is functioning appropriately. Objective - Vital Signs Vital signs: Vital Signs Temp 98.9 F 08/16/16 15:00 Pulse 74 08/16/16 15:00 Resp 18 08/16/16 15:00 BP 117/74 08/16/16 15:00 Pulse Ox 97 08/16/16 15:00 Intake & Output 08/15/16 08/16/16 08/16/16 18:59 06:59 18:59 Intake Total 340 440 Output Total 200 950 600 Balance 140 -950 -160 Intake: Intake, IV Titration 100 Amount Piperacillin-Tazobactam 3 100 .375 gm In Dextrose/Water 1 50ml.bag @ 12.5 mls/hr IVPB Q8HR [facility] Rx#: [id number] Oral 240 440 Output: Urine 200 950 600 Other: Voiding Method Bedside Commode Urinal Urinal Diaper Incontinent # Voids 2 # Bowel Movements 1 1 - Labs CBC & Chem 7: 08/16/16 08:32 08/16/16 08:26 Labs: Abnormal Lab Results - Last 24 Hours (Table) 08/16/16 08/16/16 Range/Units 08:26 08:32 RBC 4.00 L (4.30-5.90) m/uL MCV 104.2 H (80.0-100.0) fL MCH 35.5 H (25.0-35.0) pg Plt Count 68 L (150-450) k/uL Glucose 123 H (74-99) mg/dL Microbiology - Last 24 Hours (Table) 08/15/16 07:56 Stool Culture - Preliminary Stool
--- NOTE | 2016-08-16 16:49 | P.PN ---
Progress Note - Text The patient has no complaints of pain. His right exam remains unchanged. There is some evidence of induration without evidence of a drainable abscess. Patient will continue IV antibiotic.
--- NOTE | 2016-08-16 19:20 | PN ---
DATE OF SERVICE: 08/16/2016 INTERVAL HISTORY: Mr. Sparrow is an 86-year-old male with a past medical history of CAD, GERD, hypertension, is now brought into the hospital with a chief complaint of generalized weakness. The patient has been having generalized weakness for the past couple of days before coming to the hospital. When he went to eat at the restaurant, he was trying to get up from the chair but could not. He was so weak that he could not get up from the chair and so he was brought into the ED for further evaluation. Patient recently had a right axilla cellulitis and an abscess for which he was put on ciprofloxacin. At the time of admission, the patient did have fever, but no white count and as his cultures were positive for MRSA he was initially started on Zosyn and later changed to vancomycin. Surgical consult was also obtained for the right axilla but there was not a big abscess that needs I&D so he is currently being managed with IV vancomycin. REVIEW OF SYSTEMS: CONSTITUTIONAL: Denies having any fever, chills, or rigors. RESPIRATORY: No cough. No difficulty in breathing. GI: Patient did have two loose bowel movements that tested negative for C. difficile. He did have a normal bowel movement this morning. GENITOURINARY: No dysuria or hematuria. Patient's medications have been reviewed. On examination, patient's vital signs temperature 97.5, heart rate 80, respiratory rate 18, blood pressure 155/89, saturating at 98% on room air. GENERAL EXAMINATION: Patient is an elderly male sitting up in a chair beside the bed, appears to be in no acute his discomfort or distress. HEAD: Atraumatic, normocephalic. EYES: Pupils, round, and reactive to light. NECK: No JVD. No thyromegaly. CARDIOVASCULAR: S1, S2 heard. No additional sounds. The patient has a pacemaker over the left anterior chest wall. ABDOMEN: Soft. Bowel sounds are positive. Nontender, no organomegaly. EXTREMITIES: No edema. No cyanosis, no clubbing. Examination of the right axilla shows 1 x 2 cm abscess with 2+ point. No active drainage noticed and nontender to palpation. Patient's labs: White count of 4.3, hemoglobin is 14.2, platelets of 68. Sodium 137, potassium 3.9, chloride 107, bicarb 22, BUN 11, creatinine 0.69. ASSESSMENT AND PLAN: 1. Fever secondary most likely secondary to cellulitis of the right axilla. The patient had cultures positive for Methicillin-resistant Staph aureus from the right axilla previously so he is currently on vancomycin. Blood cultures are currently pending. 2. Generalized weakness, most likely secondary to #1. 3. Chronic thrombocytopenia, unclear etiology. 4. Hyperlipidemia. 5. Hypertension. 6. Pacemaker in place. PLAN: The plan is to continue the patient on IV vancomycin for the MRSA infection. Blood cultures are currently pending. Continue with the rest of his home medication regimen. Patient's is at the bedside. Treatment plan discussed in detail with the patient. Anticipate discharge in the next 24 hours.
[2016-08-16] MEDS: MONTELUKAST 10 MG TAB PO SCH (20:22)
[2016-08-16] MEDS: PANTOPRAZOLE 40 MG TABLET PO SCH (20:22)
[2016-08-16] MEDS: ATORVASTATIN 10 MG TAB PO SCH (20:22)
[2016-08-16] MEDS: Acetaminophen-Codeine 300-30mg TAB PO SCH (23:18)
[2016-08-17] MEDS: traMADol 50 MG TAB PO SCH (03:51)
[2016-08-17] MEDS ORDERED: VANCOMYCIN TROUGH DUE 1 EACH MISC MISCELLANE ONE (05:00)
[2016-08-17] MEDS: VANCOMYCIN 1,500 MG in SODIUM CHLORIDE 0.9% 250 ML IVPB SCH (06:12)
[2016-08-17 07:45] LABS: Anion Gap 8 mmol/L; Blood Urea Nitrogen 11 mg/dL (9-20); Carbon Dioxide 23 mmol/L (22-30); Chloride 106 mmol/L (98-107); Glucose 92 mg/dL (74-99); Non-African American GFR(MDRD) >60 (>60 ml/min/1.73 sqM); Potassium 3.9 mmol/L (3.5-5.1); Sodium 137 mmol/L (137-145)
[2016-08-17 08:03] VITALS: BP 152/90; PULSE 69; RESP 16; TEMP 99.2
[2016-08-17] MEDS: APIXABAN 2.5 MG TABLET PO SCH (08:14)
[2016-08-17] MEDS: cycloSPORINE 0.05% OPHTH 0.4 ML DROPERETTE BOTH EYES SCH (08:14)
[2016-08-17] MEDS: SOTALOL 80 MG TAB PO SCH (08:14)
[2016-08-17] MEDS: PRIMIDONE 50 MG TAB PO SCH (08:14)
[2016-08-17] MEDS: LORATADINE 10 MG TAB PO SCH (08:14)
[2016-08-17] MEDS: amLODIPine 5 MG TAB PO SCH (08:14)
[2016-08-17] MEDS: LISINOPRIL 5 MG TAB PO SCH (08:14)
[2016-08-17] MEDS: ATENOLOL 50 MG TAB PO SCH (08:14)
[2016-08-17] MEDS: MULTIVITAMINS, THERA 1 EACH TAB PO SCH (11:01)
[2016-08-17] MEDS: CYANOCOBALAMIN 500 MCG TAB PO SCH (11:01)
--- NOTE | 2016-08-17 11:56 | P.PN ---
Subjective Principal diagnosis: Acute maxillary cellulitis secondary to MRSA This is an 86-year-old male patient was admitted for generalized weakness. The patient was in a good state of health. He had some carbuncles in his right axilla for which she was seen by dermatology and he underwent incision and drainage and according to him the cultures came back positive for MRSA. The patient was given Bactrim on outpatient basis at least by the reported history. In the medical records, it was determined that the patient was given ciprofloxacin yet the patient felt that he was given a combination of Bactrim and mupirocin. The patient went out with his to have lunch and he felt very weak and at the end of his meal the patient felt quite sick. In the emergency was found to have a temperature of 11.0. At that point the right axillary was inspected and there is some minimal erythema without any flocculation or abscess formation. Blood cultures were sent. The patient was started on a combination of Zosyn and Bactrim and he was admitted to the hospital. This morning it is awake alert and sitting up on a chair. No change in mental status. No fever. No tachycardia. No drop in urine output. He is hemodynamically stable. No chest pain. No cough or sputum production. No dysuria fixed or urgency. No nausea or vomiting. No other significant events over the past 24 hours. He is followed up by Dr. Espinoza on outpatient basis. Seen on 08/16/2016, patient is doing relatively well, continues to remain generally weak, and his weakness is relatively chronic. Today I felt that my slow and may be causing some of his symptoms, and I went ahead and cut down the dose to 50 mg instead of 200 mg daily. All his labs were reviewed, CBC is relatively normal platelets are coming down to 68,000 electrolytes and renal profile are normal. Blood cultures are negative so far. His most recent wound culture from his right axillary area was positive for MRSA. Patient remains on vancomycin. The patient is seen again today August 17 2016 in follow-up on the regular medical floor. He is awake and alert in no acute distress. He has been working with physical therapy and ambulating in his room now. Less weakness in the lower extremities. Electrolytes are within normal range. Blood cultures revealed no growth. His temp today is 99.2. No leukocytosis. He has been maintaining good O2 saturations in the upper 90s on room air. Objective - Vital Signs Vital signs: Vital Signs Temp 99.2 F 08/17/16 07:00 Pulse 69 08/17/16 07:00 Resp 16 08/17/16 07:00 BP 152/90 08/17/16 07:00 Pulse Ox 97 08/17/16 07:00 Intake & Output 08/16/16 08/17/16 08/17/16 18:59 06:59 18:59 Intake Total 440 440 Output Total 600 1000 Balance -160 -560 Intake: Oral 440 440 Output: Urine 600 1000 Other: Voiding Method Urinal Urinal Urinal # Voids 2 # Bowel Movements 1 1 - Exam Head exam was generally normal. There was no scleral icterus or corneal arcus. Mucous membranes were moist.Neck was supple and without jugular venous distension, thyromegaly, or carotid bruits. Carotids were easily palpable bilaterally. There was no adenopathy.Lungs were clear to auscultation and percussion, and with normal diaphragmatic excursion. No wheezes or rales were noted. Heart sounds are regular, positive psoas and the patient is a pacemaker over the left anterior chest area.Abdominal exam revealed normal bowel sounds. The abdomen was soft, non-tender, and without masses, organomegaly, or appreciable enlargement of the abdominal aorta.Examination of the extremities revealed easily palpable radial, femoral and pedal pulses. There was no cyanosis , clubbing or edema. The right axillary area shows the skin is a bit erythematous and this area is involved to cover around 3-4 cm of the axillary skin. There is also few carbuncles that have no active drainage or open wounds. - Labs CBC & Chem 7: 08/16/16 08:32 08/17/16 05:34 Assessment and Plan Plan: Impression: 1 right axillary cellulitis with some few follicles/folliculitis/carbuncles that are a bit swollen yet there is no active drainage or flocculation of abscess collection. The patient had a recent I&D and the cultures were positive for MRSA. 2 generalized weakness and fever. Doubt sepsis, cultures are negative. 3 chronic thrombocytopenia 4 hyperlipidemia 6 hypertension 7 permanent pacemaker insertion 8 long-term anticoagulation utilizing Apixaban. Plan: The patient was seen and evaluated by Dr. Espinoza. We'll continue with the patient's current medications. He remains on vancomycin. He is improved today as compared to yesterday. We'll continue to increase his activity as tolerated. We'll continue to follow.
--- NOTE | 2016-08-18 15:51 | DS ---
DATE OF ADMISSION: 08/14/2016 DATE OF DISCHARGE: 08/17/2016 HOSPITAL COURSE: This is an 86 -year-old pleasant gentleman came into the hospital after the patient noted some lumps in his right axilla. The patient thereafter went to the reporting process consultant who did an I&D and sent for cultures. The patient thereafter apparently was discharged home on Bactrim. A day after this occurrence, patient apparently had generalized weakness. He had some chills and has not improved over the next 24 hours. The patient presented to the emergency room and was noted to have temperature that was elevated and greater than 101. The cultures were reviewed. Patient does have MRSA, however, there is susceptibility to Bactrim and doxycycline. Patient was given initially Zosyn and Bactrim; however, was changed to vancomycin. Patient clinically improved. States that he has been feeling significantly better over the last 48 hours. States that he does not even noticed a lump in his axilla any more. On the day of discharge, the patient denies having any headaches, no blurry vision, nausea, vomiting, diarrhea, was able to ambulate without much difficulty. PHYSICAL EXAM: Temperature is , heart rate is , respiration rate is per minute, blood pressure is and patient is saturating % on room air. GENERALLY: Patient appears to be alert, oriented x3. HEENT: The pupils are equal and reactive to light and accommodation. HEART: S1, S2 present. No murmur appreciated. LUNGS: Good air entry. No wheezing or rhonchi noted. ABDOMINAL EXAM: Soft, nontender, no organomegaly appreciated. GENITOURINARY: No Kong in place. EXTREMITIES: Pulses can be palpated distally. Denies any tenderness on gross palpation. The right axilla there is a lump noted superiorly; however, not tender to palpation. There is no associated erythema on the right side. SKIN: On a gross skin exam does not appear to have any purpura or any skin rashes that were noted. NEUROLOGICALLY: Grossly cranial nerves 2-12 intact. No motor or sensory deficits noted. DISCHARGE DIAGNOSES: 1. Methicillin-resistant Staphylococcus aureus axillary folliculitis, likely transform into a carbuncle is significantly improved. 2. Chronic thrombocytopenia. 3. Dyslipidemia. 4. Hypertension. 5. Remote history of atrial fibrillation Of note, patient did have an interrogation of the pacemaker as well and there were no abnormalities noted except for an episode of A. fib in July. Surgical consultation was also made. No procedures were recommended by the general surgeon. Patient is discharged home on 10 day course of doxycycline. Closely follow up with the reporting process consultant and Dr. Espinoza who is his primary care physician. Please send a copy to Dr. Espinoza.
== END 2016-08-17 15:44 | disposition home health service (06) | DRG 603 ==
LOC: EC 12:47 → 4MS4W 16:45
PROVIDERS: ADMIT Internal Medicine; ATTEND Internal Medicine
PROC: 4B02XSZ Measurement of Cardiac Pacemaker, External Approach (ICD-10-PCS; principal; 2016-08-16)
DX: L02.431 Carbuncle of right axilla (principal); L03.111 Cellulitis of right axilla; D69.6 Thrombocytopenia, unspecified; B95.62 Methicillin resistant Staphylococcus aureus infection as the cause of diseases classified elsewhere; L73.9 Follicular disorder, unspecified; E78.5 Hyperlipidemia, unspecified; I10 Essential (primary) hypertension; I25.10 Atherosclerotic heart disease of native coronary artery without angina pectoris; J45.909 Unspecified asthma, uncomplicated; K21.9 Gastro-esophageal reflux disease without esophagitis; R32 Unspecified urinary incontinence; Z79.01 Long term (current) use of anticoagulants; Z79.899 Other long term (current) drug therapy; Z87.891 Personal history of nicotine dependence; Z95.0 Presence of cardiac pacemaker; Z96.653 Presence of artificial knee joint, bilateral; Z96.642 Presence of left artificial hip joint; Z82.49 Family history of ischemic heart disease and other diseases of the circulatory system
CPT/HCPCS: 36415; 70450; 71020; 80048; 80053; 80202; 81003; 82550; 82553; 83605; 84484; 85025; 85610; 85730; 87040; 87045; 87046; 87086; 87324; 93005; 96361; 96365; 96366; 99213; 99285

== ENCOUNTER → 2016-09-16 | Outpatient (CLI) | payer MEDICARE, BC, OTHER ==
[2016-09-16 15:54] LABS: ALT 20 U/L (21-72); AST 42 U/L (17-59); Alkaline Phosphatase 41 U/L (38-126); Anion Gap 11 mmol/L; Blood Urea Nitrogen 18 mg/dL (9-20); Calcium 9.8 mg/dL (8.4-10.2); Carbon Dioxide 22 mmol/L (22-30); Chloride 106 mmol/L (98-107); Cholesterol 163 mg/dL (<200); Glucose 101 mg/dL (74-99); HDL Cholesterol 69 mg/dL (40-60); Non-African American GFR(MDRD) >60 (>60 ml/min/1.73 sqM); Sodium 139 mmol/L (137-145); Total Protein 7.3 g/dL (6.3-8.2); Triglycerides 67 mg/dL (<150)
[2016-09-16 16:24] LABS: Potassium 5.5 mmol/L (3.5-5.1)
== END ==
LOC: LABWHC1 10:28
PROVIDERS: ATTEND Internal Medicine Interventional Cardiology
DX: E78.2 Mixed hyperlipidemia (principal)
CPT/HCPCS: 36415; 80053; 80061

== ENCOUNTER → 2016-09-21 | Outpatient (CLI) | payer MEDICARE, BC, OTHER ==
[2016-09-21 12:04] LABS: Anion Gap 10 mmol/L; Blood Urea Nitrogen 18 mg/dL (9-20); Carbon Dioxide 25 mmol/L (22-30); Chloride 105 mmol/L (98-107); Non-African American GFR(MDRD) >60 (>60 ml/min/1.73 sqM); Potassium 4.4 mmol/L (3.5-5.1); Sodium 140 mmol/L (137-145)
== END | disposition home or self-care (01) ==
LOC: LABWHC1 11:40
PROVIDERS: ATTEND Internal Medicine Interventional Cardiology
DX: E87.5 Hyperkalemia (principal)
CPT/HCPCS: 36415; 80051; 82565; 84520

== ENCOUNTER 2016-10-27 14:37 | Inpatient (IN) | payer MEDICARE, BC, OTHER ==
--- NOTE | 2016-10-27 15:07 | ED ---
General Adult HPI - General Chief complaint: Extremity Problem,Nontraumatic Stated complaint: Dr Portillo/ opal blood clot Time Seen by Provider: 10/27/16 14:58 Source: patient, family, RN notes reviewed Mode of arrival: wheelchair Limitations: no limitations - History of Present Illness Initial comments: Patient is a pleasant 86-year-old male presenting to the emergency department complaining of left leg swelling. Symptoms have been present for several weeks. Patient had outpatient study done today showing positive DVT. Patient already takes elaquis. No chest pain. No dyspnea. Patient sometimes wakes up in the middle the night with coughing and wheezing which he attributes to ALLERGIES. No history of similar symptoms of leg swelling previously. - Related Data Home Medications Medication Instructions Recorded Confirmed Albuterol Sulfate [Proventil Hfa] 1 - 2 puff INHALATION RT-QID PRN 09/25/1412/23 Apixaban [Eliquis] 2.5 mg PO BID 09/25/14 08/14/16 Atenolol [Tenormin] 50 mg PO DAILY 09/25/14 08/14/16 Cetirizine HCl [Zyrtec Chewable] 10 mg PO DAILY 09/25/14 08/14/16 Lisinopril [Zestril] 5 mg PO BID 09/25/14 08/14/16 Montelukast [Singulair] 10 mg PO HS 09/25/14 08/14/16 Omeprazole [PriLOSEC] 20 mg PO HS 09/25/14 08/14/16 Primidone [Mysoline] 50 mg PO QAM 09/25/14 08/14/16 Propylene Glycol/Peg 400/Pf 1 drop BOTH EYES QID PRN 09/25/14 08/14/16 [Systane 0.3-0.4% Eye Drops] Simvastatin [Zocor] 20 mg PO HS 09/25/14 08/14/16 Sotalol [Betapace] 80 mg PO BID 09/25/14 08/14/16 traMADol HCl [Ultram] 50 mg PO HS 09/25/14 09/25/14 Acetaminophen Tab [Tylenol] 500 - 1,000 mg PO Q6HR PRN 08/14/16 08/14/16 Acetaminophen-Codeine 300-30mg 1 tab PO HS 08/14/16 08/14/16 [Tylenol w/codeine #3] Cyanocobalamin (Vitamin B-12) 1,000 mcg PO DAILY 08/14/16 08/14/16 [Vitamin B-12] Fluticasone Nasal [place] [Flonase 2 spr EA NOSTRIL DAILY PRN 08/14/16 08/14/16 Nasal [place]] Multivitamins, Thera [Multivitamin 1 tab PO DAILY 08/14/16 08/14/16 (formulary)] Primidone [Mysoline] 150 mg PO HS 08/14/16 08/14/16 amLODIPine [Norvasc] 5 mg PO DAILY 08/14/16 08/14/16 cycloSPORINE 0.05% OPHTH SOLN 1 drop BOTH EYES BID 08/14/16 08/14/16 [Restasis] Previous Rx's Medication Instructions Recorded Doxycycline Hyclate [Vibramycin] 100 mg PO BID #20 cap 08/17/16 Allergies Allergy/AdvReac Type Severity Reaction Status Date / Time No Known Allergies Allergy Verified 10/27/16 14:43 Review of Systems ROS Statement: Those systems with pertinent positive or pertinent negative responses have been documented in the HPI. ROS Other: All systems not noted in ROS Statement are negative. Constitutional: Denies: fever Eyes: Denies: eye pain ENT: Denies: ear pain Respiratory: Reports: cough. Denies: dyspnea Cardiovascular: Denies: chest pain Endocrine: Denies: fatigue Gastrointestinal: Denies: abdominal pain, vomiting Genitourinary: Denies: dysuria Musculoskeletal: Reports: other (Left leg swelling). Denies: back pain Skin: Denies: rash Neurological: Denies: weakness Past Medical History Past Medical History: Asthma, Coronary Artery Disease (CAD), GERD/Reflux, Hyperlipidemia, Hypertension Additional Past Medical History / Comment(s): Pacemaker insertion History of Any Multi-Drug Resistant Organisms: MRSA Date of last positivie culture/infection: 08/06/16 MDRO Source:: Right Axilla Past Surgical History: Heart Catheterization, Pacemaker, Tonsillectomy Additional Past Surgical History / Comment(s): BILATERAL KNEE REPLACED, LEFT HIP REPLACED Type of Cardiac Device: Unknown Device Placement Date:: unknown Past Psychological History: No Psychological Hx Reported Smoking Status: Never smoker Past Alcohol Use History: Daily Past Drug Use History: None Reported General Exam Limitations: no limitations General appearance: alert, in no apparent distress Head exam: Present: atraumatic Eye exam: Present: normal appearance, PERRL ENT exam: Present: normal oropharynx Neck exam: Present: normal inspection Respiratory exam: Present: normal lung sounds bilaterally Cardiovascular Exam: Present: regular rate, normal rhythm Expanded Peripheral pulses: 2+: Posterior Tibialis (R), Posterior Tibialis (L) GI/Abdominal exam: Present: soft. Absent: tenderness Extremities exam: Present: pedal edema (Limited to the left leg below the knee.) . Absent: calf tenderness Neurological exam: Present: alert Psychiatric exam: Present: normal affect, normal mood Skin exam: Present: normal color Course Vital Signs 10/27/16 14:41 Temperature 98.5 F Pulse Rate 61 Respiratory 18 Rate Blood Pressure 141/67 O2 Sat by Pulse 98 Oximetry Medical Decision Making - Medical Decision Making Case was discussed with Dr. Espinoza who would like medical admission. Patient updated. Disposition Clinical Impression: Deep vein thrombosis of lower extremity Disposition: ADMITTED IP TO THIS [facility] Referrals: James Espinoza MD [Primary Care Provider] - 1-2 days Decision Time: 15:39
[2016-10-27] MEDS ORDERED: HEPARIN SODIUM,PORCINE 10,000 UNIT/ML 1 ML VIAL IV ONE (15:39)
[2016-10-27] MEDS ORDERED: NALOXONE 0.4 MG/ML 1 ML VIAL IV PRN (15:39)
[2016-10-27] MEDS ORDERED: HEPARIN SODIUM,PORCINE 5,000 UNIT/ML 1 ML VIAL IV PRN (15:39)
[2016-10-27 15:59] LABS: Basophils # (A) 0.1 k/uL (0-0.2); Basophils % (A) 1 %; CH 35.3; CHCM 33.3; Eosinophils # (A) 0.5 k/uL (0-0.7); Eosinophils % (A) 7 %; HCT 42.5 % (39.0-53.0); HDW 2.23; HGB 13.9 gm/dL (13.0-17.5); Luc # (Auto) 0.18; Luc % (Auto) 3; Lymphocytes # (A) 1.3 k/uL (1.0-4.8); Lymphocytes % (A) 20 %; MCH 34.8 pg (25.0-35.0); MCHC 32.7 g/dL (31.0-37.0); MCV 106.3 fL (80.0-100.0); Macrocytosis Moderate; Mean Platelet Volume 7.8; Monocytes # (A) 0.6 k/uL (0-1.0); Monocytes % (A) 9 %; Neutrophils # (A) 4.2 k/uL (1.3-7.7); Neutrophils % (A) 61 %; RBC 3.99 m/uL (4.30-5.90); RDW 13.1 % (11.5-15.5); WBC 6.9 k/uL (3.8-10.6); WBC (Perox) 7.04
[2016-10-27 16:09] LABS: Prothrombin Time 10.6 sec (9.0-12.0)
[2016-10-27 16:11] LABS: ALT 19 U/L (21-72); AST 22 U/L (17-59); Alkaline Phosphatase 49 U/L (38-126); Anion Gap 12 mmol/L; Blood Urea Nitrogen 17 mg/dL (9-20); Calcium 9.5 mg/dL (8.4-10.2); Carbon Dioxide 24 mmol/L (22-30); Chloride 103 mmol/L (98-107); Glucose 96 mg/dL (74-99); Non-African American GFR(MDRD) >60 (>60 ml/min/1.73 sqM); Potassium 4.2 mmol/L (3.5-5.1); Sodium 139 mmol/L (137-145)
[2016-10-27] MEDS: HEPARIN SODIUM,PORCINE/D5W PMX 25,000 UNIT in DEXTROSE/WATER 1 500ML.BAG IV SCH (16:23)
[2016-10-27] MEDS: SODIUM CHLORIDE 0.9% 1,000 ML IV SCH (16:26)
[2016-10-27] MEDS ORDERED: ARTIFICIAL TEARS-HYPROMELLOSE DROPS 15 ML BTL BOTH EYES PRN (20:22)
[2016-10-27] MEDS ORDERED: Acetaminophen-Codeine 300-30mg TAB PO PRN (20:22)
[2016-10-27] MEDS ORDERED: ALBUTEROL NEBULIZED 2.5 MG/3 ML INHALATION PRN (20:22)
[2016-10-27] MEDS ORDERED: FLUTICASONE 50MCG/SPRAY NASAL 16GM EA NOSTRIL PRN (20:22)
[2016-10-27] MEDS ORDERED: ACETAMINOPHEN TAB 500 MG TAB PO PRN (20:22)
[2016-10-27] MEDS ORDERED: NON-FORMULARY DRUG (Biotin [Biotin] 10,000 MCG) PO SCH (20:30)
[2016-10-27] MEDS: CYANOCOBALAMIN 500 MCG TAB PO SCH (20:44)
[2016-10-27] MEDS: ATENOLOL 50 MG TAB PO SCH (20:44)
[2016-10-27] MEDS: LORATADINE 10 MG TAB PO SCH (20:44)
[2016-10-27] MEDS: MULTIVITAMINS, THERA 1 EACH TAB PO SCH (20:44)
[2016-10-27] MEDS: ATORVASTATIN 10 MG TAB PO SCH (21:50)
[2016-10-27] MEDS: traMADol 50 MG TAB PO SCH (21:50)
[2016-10-27] MEDS: amLODIPine 5 MG TAB PO SCH (21:51)
[2016-10-27] MEDS: SOTALOL 80 MG TAB PO SCH (21:51)
[2016-10-27] MEDS: cycloSPORINE 0.05% OPHTH 0.4 ML DROPERETTE BOTH EYES SCH (21:51)
[2016-10-27] MEDS: LISINOPRIL 10 MG TAB PO SCH (21:51)
[2016-10-27] MEDS: PANTOPRAZOLE 40 MG TABLET PO SCH (21:51)
[2016-10-27] MEDS: MONTELUKAST 10 MG TAB PO SCH (21:51)
[2016-10-27] MEDS: PRIMIDONE 50 MG TAB PO SCH (21:51)
[2016-10-28 05:37] LABS: Basophils % (A) 1 %; CH 35.7; CHCM 33.5; Eosinophils # (A) 0.6 k/uL (0-0.7); Eosinophils % (A) 9 %; HCT 37.4 % (39.0-53.0); HGB 12.1 gm/dL (13.0-17.5); Luc # (Auto) 0.16; Luc % (Auto) 3; Lymphocytes % (A) 31 %; MCH 34.7 pg (25.0-35.0); MCHC 32.4 g/dL (31.0-37.0); Macrocytosis Moderate; Mean Platelet Volume 7.7; Monocytes # (A) 0.5 k/uL (0-1.0); Monocytes % (A) 7 %; Neutrophils # (A) 3.2 k/uL (1.3-7.7); Neutrophils % (A) 50 %; WBC 6.4 k/uL (3.8-10.6); WBC (Perox) 6.93
[2016-10-28 05:50] LABS: INR 1.1 (<1.1); Partial Thromboplastin Time 82.2 sec (22.0-30.0); Prothrombin Time 11.2 sec (9.0-12.0)
[2016-10-28 06:22] LABS: ALT 21 U/L (21-72); AST 19 U/L (17-59); Alkaline Phosphatase 40 U/L (38-126); Anion Gap 9 mmol/L; Blood Urea Nitrogen 14 mg/dL (9-20); Calcium 9.2 mg/dL (8.4-10.2); Carbon Dioxide 25 mmol/L (22-30); Chloride 105 mmol/L (98-107); Glucose 110 mg/dL (74-99); Non-African American GFR(MDRD) >60 (>60 ml/min/1.73 sqM); Potassium 3.6 mmol/L (3.5-5.1); Sodium 139 mmol/L (137-145); Total Protein 5.9 g/dL (6.3-8.2)
[2016-10-28] MEDS: CYANOCOBALAMIN 500 MCG TAB PO SCH (08:42)
[2016-10-28] MEDS: cycloSPORINE 0.05% OPHTH 0.4 ML DROPERETTE BOTH EYES SCH ×2 (08:42→20:50)
[2016-10-28] MEDS: ATENOLOL 50 MG TAB PO SCH (08:42)
[2016-10-28] MEDS: LISINOPRIL 10 MG TAB PO SCH ×2 (08:43→20:44)
[2016-10-28] MEDS: MULTIVITAMINS, THERA 1 EACH TAB PO SCH (08:43)
[2016-10-28] MEDS: LORATADINE 10 MG TAB PO SCH (08:43)
[2016-10-28] MEDS: SOTALOL 80 MG TAB PO SCH ×2 (08:44→20:45)
[2016-10-28] MEDS: HEPARIN SODIUM,PORCINE/D5W PMX 25,000 UNIT in DEXTROSE/WATER 1 500ML.BAG IV SCH ×2 (08:48→10:03)
--- NOTE | 2016-10-28 09:01 | HP ---
DATE OF ADMISSION: DATE OF SERVICE: 10/27/2016 CHIEF COMPLAINT: Left leg swelling. HISTORY OF PRESENT ILLNESS: This 86-year-old gentleman with a past medical history of asthma, CAD, GERD, hypertension, hyperlipidemia, DJD, history of paroxysmal atrial fibrillation, history of pacemaker implant, history of appendectomy, history of CAD being followed by Dr. Espinoza and Dr. Stewart in the outpatient setting also was taking Eliquis at home. Eliquis dose was recently reduced to 2.5 p.o. b.i.d. according to the patient and now the patient is complaining of pain and swelling of the left leg and the patient's DVT was suspected and admitted for further evaluation and treatment. The patient was started on IV heparin. There is no history of any fever, rigors or chills. No history of headache, loss of consciousness or seizures. PAST MEDICAL HISTORY: History of asthma, history of CAD, GERD, hypertension, hyperlipidemia, history of DJD, history of syncope, history of paroxysmal atrial fibrillation, history of pacemaker. Medications prior to admission include: 1. Ultram 50 mg with supper. 2. Restasis one drop both eyes b.i.d. 3. Norvasc 5 mg p.o. q.h.s. 4. Betapace 80 mg p.o. b.i.d. 5. Zocor 20 mg q.h.s. 6. Systane 1 drop both eyes q.i.d. p.r.n. 7. Mysoline 50 mg p.o. q.h.s. 8. Prilosec 20 mg p.o. q.h.s. 9. Multivitamin 1 p.o. daily. 10. Singulair 10 mg q.h.s. 11. Zestril 10 mg p.o. b.i.d. 12. Flonase 2 sprays daily p.r.n. 13. Vitamin B-12, 1000 mcg p.o. q.a.m. 14. Zyrtec 10 mg p.o. q.a.m. 15. Biotin 10,000 mcg p.o. q.a.m. 16. Tenormin 50 mg q.a.m. 17. Eliquis 2.5 mg p.o. b.i.d. 18. ProAir HFA 2 puffs q.i.d. p.r.n. 19. Tylenol No. 3 one tablet p.o. q.h.s. 20. Tylenol 500 mg q.6 p.r.n. ALLERGIES: None. FAMILY HISTORY: History of dementia. SOCIAL HISTORY: No history of smoking. Occasional alcohol intake. REVIEW OF SYSTEMS: ENT: Diminishing hearing and diminished vision. CARDIOVASCULAR SYSTEM: As mentioned earlier. RESPIRATORY SYSTEM: As mentioned earlier. GI: No nausea. : No dysuria. NERVOUS SYSTEM: No numbness or weakness. ALLERGY/IMMUNOLOGY: asthma. MUSCULOSKELETAL: As mentioned earlier. HEMATOLOGY/ONCOLOGY: As mentioned earlier. ENDOCRINE: No history of diabetes mellitus or hypothyroidism. CONSTITUTIONAL: As mentioned earlier. DERMATOLOGY: Negative. RHEUMATOLOGY: Negative. PSYCHIATRY: As mentioned earlier. PHYSICAL EXAMINATION: The patient is alert and oriented x3. Pulse 60, blood pressure 181/8, respirations 16, temperature 97.6, pulse ox 99% on room air. HEENT: Conjunctivae normal. Oral mucosa moist. NECK: No jugular venous distention. No carotid bruit. No lymph node enlargement. CARDIOVASCULAR: S1 and S2, muffled. No S3, no S4. RESPIRATORY: Breath sounds diminished at the bases. No rhonchi. No crackles. ABDOMEN: Soft, nontender. No mass palpable. LEGS: Left leg swollen, mildly tender with some erythema also present. NERVOUS SYSTEM: Higher function as mentioned. Moves all 4 limbs. No focal motor . LYMPHATICS: No lymphadenopathy of neck, axillae or groin. SKIN: Otherwise, skin as mentioned earlier. JOINTS: No active deforming arthropathy. LABS: WBC 6.9, MCV 106.3 and ALT 19. ASSESSMENT: 1. Pain and swelling of the left leg possible acute deep venous thrombosis. 2. Was on Eliquis. 3. Paroxysmal atrial fibrillation. 4. History of coronary artery disease. 5. History of gastroesophageal reflux disease. 6. Hypertension. 7. Hyperlipidemia. 8. History of degenerative joint disease. 9. History of syncope. 10. History of pacemaker implantation. 11. History of glaucoma. 12. History of degenerative joint disease. 13. History of methicillin-resistant Staphylococcus aureus. RECOMMENDATIONS AND DISCUSSION: This 86-year-old gentleman who presented with multiple complex medical issues. Will monitor the patient closely. I will initiate IV heparin. Also recommend evaluation by Cardiology also. Will continue to monitor. Other home medications will be resumed. Further recommendations to follow. Dr. Conner will be consulted as well. See orders for further details. Further recommendations to follow. MTDD
[2016-10-28] MEDS ORDERED: IOHEXOL 350 MG/ML 25 ML BOTTLE (ORAL USE) PO PRN (11:32)
[2016-10-28] MEDS ORDERED: IOHEXOL 350 MG/ML 25 ML BOTTLE (ORAL USE) PO ONE (12:02)
[2016-10-28] MEDS: ENOXAPARIN 80 MG/0.8 ML SYRINGE SQ SCH ×2 (13:34→20:42)
--- NOTE | 2016-10-28 13:39 | P.CNPUL ---
History of Present Illness Consult date: 10/28/16 Requesting physician: Stephanie Callaway Reason for consult: abnormal CXR/CT Chief complaint: Left lower extremity edema History of present illness: This is a very pleasant 86-year-old gentleman who follows with Dr. Espinoza in our office as his primary care physician. He has a history of coronary artery disease, chronic bronchial asthma, gastroesophageal reflux disease, hyperlipidemia, hypertension, atrial fibrillation with permanent pacemaker implantation. He also has a history of MRSA infection in the right axillary region in July 2016. He was seen [address] Espinoza for complaints of shortness of breath and coughing and wheezing. He was also noted to have noted to have increased edema in the left lower extremity. He was referred for outpatient Dopplers and was found to be positive for DVT in the left lower extremity. The patient had been on Eliquis 2.5 mg twice a day. He was admitted for the same. He is seen today in consultation on the regular medical floor. He is awake and alert in no acute distress. He denies any worsening shortness of breath, cough or congestion. The edema of the lower extremity is still present but slightly improved. Pulses are palpable. He was seen and evaluated by cardiology who discontinued the heparin and started the patient on Lovenox injections for now. The patient has no other complaints. His chest x- ray did not reveal any acute pulmonary processes. There was evidence of COPD. He is maintaining good O2 saturations in the upper 90s on room air. He's been hemodynamically stable. Review of Systems 14 point review of system was conducted. All negative other than as mentioned in HPI. Past Medical History Past Medical History: Asthma, Coronary Artery Disease (CAD), GERD/Reflux, Hyperlipidemia, Hypertension, Osteoarthritis (OA), Syncope Additional Past Medical History / Comment(s): PAST AA FIBPacemaker insertion, SYNCOPE /RENAL FALIURE -RESOLVED, GLAUCOMA, CATARACTS(HAD SX - IMPLANTS), ARTHRITIS KNEES,HIPS, LT SHOULDER, BACK PAIN> History of Any Multi-Drug Resistant Organisms: MRSA Date of last positivie culture/infection: 08/06/16 MDRO Source:: Right Axilla Past Surgical History: Appendectomy, Heart Catheterization, Pacemaker, Tonsillectomy Additional Past Surgical History / Comment(s): BILATERAL KNEE REPLACED, LEFT HIP REPLACED, JAN CATARACT-LENS IMPLANTS,I&D RT AXILLA(MRSA), RT EYE SX FOR GLAUCOMA Past Anesthesia/Blood Transfusion Reactions: No Reported Reaction Type of Cardiac Device: Unknown Device Placement Date:: unknown Smoking Status: Never smoker - Past Family History Mother Family Medical History: Dementia Father Family Medical History: No Reported History Medications and Allergies Home Medications Medication Instructions Recorded Confirmed Type Apixaban [Eliquis] 2.5 mg PO BID 09/25/14 10/27/16 History Atenolol [Tenormin] 50 mg PO QAM 09/25/14 10/27/16 History Montelukast [Singulair] 10 mg PO HS 09/25/14 10/27/16 History Omeprazole [PriLOSEC] 20 mg PO HS 09/25/14 10/27/16 History Primidone [Mysoline] 50 mg PO HS 09/25/14 10/27/16 History Propylene Glycol/Peg 400/Pf 1 drop BOTH EYES QID PRN 09/25/14 10/27/16 History [Systane 0.3-0.4% Eye Drops] Simvastatin [Zocor] 20 mg PO HS 09/25/14 10/27/16 History Sotalol [Betapace] 80 mg PO BID 09/25/14 10/27/16 History traMADol HCl [Ultram] 50 mg PO W/SUPPER 09/25/14 10/27/16 History Acetaminophen Tab [Tylenol] 500 mg PO Q6HR PRN 08/14/16 10/27/16 History Acetaminophen-Codeine 300-30mg 1 tab PO HS PRN 08/14/16 10/27/16 History [Tylenol w/codeine #3] Cyanocobalamin (Vitamin B-12) 1,000 mcg PO QAM 08/14/16 10/27/16 History [Vitamin B-12] Fluticasone Nasal [place] [Flonase 2 spr EA NOSTRIL DAILY PRN 08/14/16 10/27/16 History Nasal Sylva] Multivitamins, Thera [Multivitamin 1 tab PO QAM 08/14/16 10/27/16 History (formulary)] amLODIPine [Norvasc] 5 mg PO HS 08/14/16 10/27/16 History cycloSPORINE 0.05% OPHTH SOLN 1 drop BOTH EYES BID 08/14/16 10/27/16 History [Restasis] Albuterol Sulfate [Proair Hfa] 2 puff INHALATION RT-QID PRN 10/27/16 10/27/16 History Biotin 10,000 mcg PO QAM 10/27/16 10/27/16 History Cetirizine HCl [Zyrtec] 10 mg PO QAM 10/27/16 10/27/16 History Lisinopril [Zestril] 10 mg PO BID 10/27/16 10/27/16 History Allergies Allergy/AdvReac Type Severity Reaction Status Date / Time No Known Allergies Allergy Verified 10/27/16 14:43 Physical Exam Vitals: Vital Signs Temp Pulse Pulse Resp BP BP Pulse Ox 10/28/16 08:00 65 18 10/28/16 07:00 98.6 F 65 18 130/89 96 10/27/16 21:10 98.2 F 61 16 141/88 98 10/27/16 17:49 97.6 F 60 16 181/81 99 10/27/16 16:30 98.3 F 63 16 158/69 100 10/27/16 14:41 98.5 F 61 18 141/67 98 Intake and Output 10/27/16 10/28/16 10/28/16 22:59 06:59 14:59 Intake Total 191.04 164.486 493.876 Output Total 375 650 150 Balance -183.96 -485.514 343.876 Intake: Intake, IV Titration 191.04 164.486 93.876 Amount Heparin Sodium,Porcine/ 191.04 164.486 93.876 D5w Pmx 25,000 unit In Dextrose/Water 1 500ml. bag @ 18 UNITS/KG/HR 31. 84 mls/hr IV .[id number] [facility] Rx#:[id number] Oral 400 Output: Urine 375 650 150 Other: Voiding Method Urinal Urinal Urinal Weight 88.451 kg Patient Weight 10/29/16 06:59 Weight 88.451 kg GENERAL EXAM: Alert, comfortable in no apparent distress. HEAD: Normocephalic. EYES: Normal reaction of pupils, equal size. NOSE: Clear with pink turbinates. THROAT: No erythema or exudates. NECK: No masses, no JVD. CHEST: No chest wall deformity. LUNGS: Equal air entry with no crackles, wheeze, rhonchi or dullness. CVS: S1 and S2 normal with no audible murmurs, irregular rhythm. ABDOMEN: No hepatosplenomegaly, normal bowel sounds, no guarding or rigidity. SPINE: No scoliosis or deformity SKIN: No rashes CENTRAL NERVOUS SYSTEM: No focal deficits, tone is normal in all 4 extremities. Extremities: There is 1-2+ lower extremity of the left. Peripheral pulses are intact. No clubbing, no cyanosis. Results - Laboratory Findings CBC and BMP: 10/28/16 05:18 10/28/16 05:18 PT/INR, D-dimer PT 11.2 sec (9.0-12.0) 10/28/16 05:18 INR 1.1 (<1.1) 10/28/16 05:18 Abnormal lab findings: Abnormal Labs 10/27/16 10/27/16 10/27/16 15:48 15:48 21:32 RBC 3.99 L Hgb Hct MCV 106.3 H APTT 164.6 H* Glucose ALT 19 L Total Protein Albumin 10/28/16 10/28/16 10/28/16 05:18 05:18 05:18 RBC 3.50 L Hgb 12.1 L Hct 37.4 L MCV 107.0 H APTT 82.2 H Glucose 110 H ALT Total Protein 5.9 L Albumin 3.4 L - Diagnostic Findings Chest x-ray: image reviewed Assessment and Plan Plan: Impression: #1 Left lower extremity edema secondary to DVT. This developed despite the patient being anticoagulated with Eliquis 2.5 mg twice a day. #2 Paroxysmal atrial fibrillation status post permanent pacemaker implantation. Anticoagulated with Eliquis. #3 Chronic thrombocytopenia. #4 Hyperlipidemia. #5 Hypertension. #6 Chronic mild intermittent bronchial asthma, currently inactive and stable. #7 Coronary artery disease. #8 History of MRSA in the right axilla in July 2016. Plan: The patient was seen and evaluated by Dr. Conner. His chest x-ray and labs were reviewed. Cardiology has discontinued the IV heparin and initiated the patient on Lovenox 70 mg subcutaneous twice a day. Other anticoagulants will need to be considered as the patient has failed on Eliquis. We will continue with his current medications. He is stable from the pulmonary standpoint currently. We will continue to follow and make further recommendations based on his clinical status. Time with Patient: Greater than 30
[2016-10-28 13:52] LABS: Partial Thromboplastin Time 48.5 sec (22.0-30.0)
--- NOTE | 2016-10-28 14:53 | CT ---
EXAMINATION TYPE: CT ChestAbdPelvis wo con DATE OF EXAM: 10/28/2016 INDICATION: Rule out malignancy. No additional history is provided. COMPARISON: NONE CT DLP: 1220.80 mGycm CONTRAST: No IV contrast. Oral contrast only. TECHNIQUE: Axial images at 5 mm thick sections. Reconstructed images in the coronal plane. Delayed images through the kidneys. FINDINGS: CT CHEST: Portion of the thyroid visualized is normal. Minimal alignment no bronchial thickening along the righ t subglottic airway cannot be excluded. Direct visualization can be performed if clinically indicated . No suspicious lung nodules or focal infiltrates are present. No enlarged mediastinal or hilar adenopathy is evident. The ascending aorta diameter at the level of the main pulmonary artery is 4.0 cm. The main pulmonary artery diameter at the bifurcation is 2.9 cm. Coronary artery calcifications present. CT ABDOMEN: Liver: Normal Spleen: Normal Pancreas: Normal Adrenal glands: The adrenal glands are normal. Gallbladder: Normal Kidneys: No masses are evident. No hydronephrosis is present. No cysts are present. There is a 0.3 cm calcification in the mid to inferior pole left kidney on the coronal plane images. This is nonobs tructing. Aorta: Vascular calcification is within the aorta. Inferior vena cava: Normal. Subcutaneous area of increased densities in the right lower quadrant. Correlate for subcutaneous inje ctions. CT PELVIS: Loops of bowel within the abdomen and pelvis are normal. There are loops of bowel which are incom pletely distended or lack oral contrast limiting their evaluation. A few diverticuli are within the s igmoid colon. Appendix: Not identified. Clinical management of any suspected appendicitis will be required. Urinary bladder: Normal. Genitourinary structures: Osseous structures: No suspicious lytic or sclerotic lesions. IMPRESSIONS: 1. Sigmoid diverticulosis without acute diverticulitis. 2. Nonobstructing inferior pole left renal stone.
[2016-10-28] MEDS: SODIUM CHLORIDE 0.9% 1,000 ML IV SCH (16:25)
--- NOTE | 2016-10-28 16:34 | CONS ---
Mr. Sparrow is an 86-year-old gentleman who is seen for cardiac evaluation. Patient's medical records reviewed. This patient has been having swelling in the left leg and the pain for the last couple of weeks. The patient was evaluated by Dr. Espinoza as an outpatient. Patient had an ultrasound done as an outpatient which was positive for DVT and patient was advised to come to the emergency room. He has been having some cough and wheezing for which patient was given some shot. He denies any fever or chills. Denies any pleuritic chest pain. Patient has a history of pacemaker, a history of tachy-vero syndrome, paroxysmal atrial fibrillation and hypertension and has a permanent pacemaker. Patient used to take Eliquis 5 mg b.i.d. and recently the dose was decreased to 2.5 mg b.i.d. This patient's creatinine is normal and his weight is 88 kg. His past medical history includes a history of permanent pacemaker and tachy-vero syndrome and no definite prior history of myocardial infarction. He did have a cardiac catheterization done in the past. History of hypertension, hyperlipidemia, bilateral knee replacement and the left hip replacement. Review of systems is otherwise unremarkable. Patient is physically and functionally active. Patient's home medications include: 1. Albuterol. 2. Eliquis 2.5 mg b.i.d. 3. Tenormin 50 mg daily. 4. Zyrtec. 5. Zestril 5 mg b.i.d. 6. Mysoline. 7. Zocor 20 mg daily. 8. Betapace 80 mg b.i.d. 9. Flonase nasal spray. 10. Amlodipine 5 mg daily. ALLERGIES: None known. Review of systems is otherwise unremarkable. Physical examination at present reveals an 86-year-old gentleman who does not appear to be in any acute distress. Patient's oxygen saturation is 96% on room air. Blood pressure is 130/89 mmHg. HEAD/ENT: Negative. NECK: Supple. There is no increase in jugular venous pressure. Both the carotid pulses are felt. There is no bruit. CHEST: Symmetrical. HEART: The PMI is not felt. First and second heart sounds are normal. There is no evidence of any murmur. LUNGS: Clinically clear to auscultation and percussion. ABDOMEN: Soft. EXTREMITIES: There is left calf swelling noted with mild calf tenderness noted. The ultrasound of the leg was done as an outpatient which was reported to be positive for DVT. I do not have official report in the chart. D-dimer test is not done. Patient's creatinine is 0.71 and the patient weighs 80 kg. Patient's initial INR is 1.0. FINAL IMPRESSION: 1. This patient has presented with acute deep venous thrombosis. Patient had been on Eliquis 2.5 mg twice a day, but this patient is positive only for 1 risk factor and so probably this was a subtherapeutic dose of Eliquis for him. The patient's INR was only 1.0. That means that the patient did not have enough dose of Eliquis in the blood. 2. History of tachycardia-bradycardia syndrome, status post permanent pacemaker. EKG currently shows normal sinus rhythm. RECOMMENDATIONS: I discussed this with Dr. Goldberg. We will recommend to treat the patient with Lovenox for the next 3 to 5 days and then the patient can be switched to the oral Eliquis at the dose of 5 mg twice a day. We will obtain echo and Doppler study. I also discussed with Dr. Goldberg to get a CT scan of the abdomen, pelvis and the chest to rule out any underlying malignancy, in view of this patient's unprovoked DVT. Thank you very much for letting me participate in the care of this nice gentleman.
[2016-10-28] MEDS: traMADol 50 MG TAB PO SCH (17:08)
--- NOTE | 2016-10-28 19:10 | P.CONS ---
History of Present Illness - Reason for Consult Consult date: 10/28/16 DVT, on eliquis Requesting physician: Laly Goldberg - Chief Complaint LLE swelling - History of Present Illness Mr. Sparrow is a very pleasant 86-year-old male patient of Dr. Espinoza who is admitted for treatment of left lower extremity DVT. Patient states that typically has left lower extremity swelling and that it is chronic but, he noted a few days ago that the top of his foot was swollen and that is new. Patient was sent to [facility], had a Doppler at [facility] revealing a deep vein thrombosis, report is not available for me to review. Patient was admitted to the hospital started on a heparin drip. Patient has been on eliquis twice a day for several years for atrial fibrillation. Patient denies any side effects related to anticoagulation, denies any missed doses. Patient' s heparin drip was discontinued this a.m. and patient was started on Lovenox. Patient denied to me any recent illnesses other then a chest cold, he had been ordered steroids but had not taken any doses of it, patient denies any hormone therapy, long trips, prolonged immobility or recent injuries. Patient was hospitalized August 2016, after chart review it looks as though this was for cellulitis/MRSA infection. His platelet counts were noted to be in the 80,000 sign not sure if the patient had his anticoagulation held at that time. Patient is currently stating mild swelling in the left foot, no acute pain in the groin, he is denying any bleeding. Review of Systems ROS unobtainable: due to mental status All systems: negative Constitutional: Reports as per HPI Past Medical History Past Medical History: Asthma, Coronary Artery Disease (CAD), GERD/Reflux, Hyperlipidemia, Hypertension, Osteoarthritis (OA), Syncope Additional Past Medical History / Comment(s): PAST AA FIBPacemaker insertion, SYNCOPE /RENAL FALIURE -RESOLVED, GLAUCOMA, CATARACTS(HAD SX - IMPLANTS), ARTHRITIS KNEES,HIPS, LT SHOULDER, BACK PAIN> History of Any Multi-Drug Resistant Organisms: MRSA Year Discovered:: 08/06/16 MDRO Source:: Right Axilla Past Surgical History: Appendectomy, Heart Catheterization, Pacemaker, Tonsillectomy Additional Past Surgical History / Comment(s): BILATERAL KNEE REPLACED, LEFT HIP REPLACED, JAN CATARACT-LENS IMPLANTS,I&D RT AXILLA(MRSA), RT EYE SX FOR GLAUCOMA Past Anesthesia/Blood Transfusion Reactions: No Reported Reaction Type of Cardiac Device: Unknown Device Placement Date:: unknown Smoking Status: Never smoker - Past Family History Mother Family Medical History: Dementia Father Family Medical History: No Reported History Medications and Allergies Home Medications Medication Instructions Recorded Confirmed Type Apixaban [Eliquis] 2.5 mg PO BID 09/25/14 10/27/16 History Atenolol [Tenormin] 50 mg PO QAM 09/25/14 10/27/16 History Montelukast [Singulair] 10 mg PO HS 09/25/14 10/27/16 History Omeprazole [PriLOSEC] 20 mg PO HS 09/25/14 10/27/16 History Primidone [Mysoline] 50 mg PO HS 09/25/14 10/27/16 History Propylene Glycol/Peg 400/Pf 1 drop BOTH EYES QID PRN 09/25/14 10/27/16 History [Systane 0.3-0.4% Eye Drops] Simvastatin [Zocor] 20 mg PO HS 09/25/14 10/27/16 History Sotalol [Betapace] 80 mg PO BID 09/25/14 10/27/16 History traMADol HCl [Ultram] 50 mg PO W/SUPPER 09/25/14 10/27/16 History Acetaminophen Tab [Tylenol] 500 mg PO Q6HR PRN 08/14/16 10/27/16 History Acetaminophen-Codeine 300-30mg 1 tab PO HS PRN 08/14/16 10/27/16 History [Tylenol w/codeine #3] Cyanocobalamin (Vitamin B-12) 1,000 mcg PO QAM 08/14/16 10/27/16 History [Vitamin B-12] Fluticasone Nasal [place] [Flonase 2 spr EA NOSTRIL DAILY PRN 08/14/16 10/27/16 History Nasal [place]] Multivitamins, Thera [Multivitamin 1 tab PO QAM 08/14/16 10/27/16 History (formulary)] amLODIPine [Norvasc] 5 mg PO HS 08/14/16 10/27/16 History cycloSPORINE 0.05% OPHTH SOLN 1 drop BOTH EYES BID 08/14/16 10/27/16 History [Restasis] Albuterol Sulfate [Proair Hfa] 2 puff INHALATION RT-QID PRN 10/27/16 10/27/16 History Biotin 10,000 mcg PO QAM 10/27/16 10/27/16 History Cetirizine HCl [Zyrtec] 10 mg PO QAM 10/27/16 10/27/16 History Lisinopril [Zestril] 10 mg PO BID 10/27/16 10/27/16 History Allergies Allergy/AdvReac Type Severity Reaction Status Date / Time No Known Allergies Allergy Verified 10/27/16 14:43 Physical Exam Vitals: Vital Signs Temp Pulse Resp BP Pulse Ox 10/28/16 16:00 61 20 10/28/16 15:00 97.5 F L 61 20 126/70 98 10/28/16 08:00 65 18 10/28/16 07:00 98.6 F 65 18 130/89 96 10/27/16 21:10 98.2 F 61 16 141/88 98 Intake and Output 10/28/16 10/28/16 10/28/16 06:59 14:59 22:59 Intake Total 578.279 5485.876 Output Total 650 150 150 Balance -295.593 7733.876 -150 Intake: Intake, IV Titration 164.486 293.876 Amount Heparin Sodium,Porcine/ 164.486 93.876 D5w Pmx 25,000 unit In Dextrose/Water 1 500ml. bag @ 18 UNITS/KG/HR 31. 84 mls/hr IV .[id number] [facility] Rx#:[id number] Sodium Chloride 0.9% 1, 200 000 ml @ 20 mls/hr IV . Q24H [facility] Rx#:[id number] Oral 2650 Output: Urine 650 150 150 Other: Voiding Method Urinal Urinal Urinal # Voids 3 3 # Bowel Movements 2 2 Weight 88.451 kg 88.451 kg Patient Weight 10/29/16 06:59 Weight 88.451 kg - Constitutional General appearance: average body habitus, cooperative, no acute distress - EENT Eyes: anicteric sclerae, normal appearance ENT: normal oropharynx - Neck Neck: no lymphadenopathy - Respiratory Respiratory: bilateral: CTA - Cardiovascular Heart sounds: normal: S1, S2 leg Peripheral Edema: bilateral: None - Gastrointestinal General gastrointestinal: no absent bowel sounds, no decreased bowel sounds, no distended, no hepatomegaly, no hyperactive bowel sounds, normal bowel sounds, no organomegaly, no rigid, no scaphoid, soft, no splenomegaly, no tenderness, no umbilical hernia, no ventral hernia - Integumentary Integumentary: normal - Neurologic Neurologic: CNII-XII intact - Musculoskeletal Musculoskeletal: strength equal bilaterally - Psychiatric has difficulty recalling events Psychiatric: A&O x's 3, appropriate affect Results CBC & Chem 7: 10/28/16 05:18 10/28/16 05:18 Labs: Abnormal Lab Results - Last 24 Hours (Table) 10/27/16 10/28/16 10/28/16 Range/Units 21:32 05:18 05:18 RBC 3.50 L (4.30-5.90) m/uL Hgb 12.1 L (13.0-17.5) gm/dL Hct 37.4 L (39.0-53.0) % MCV 107.0 H (80.0-100.0) fL APTT 164.6 H* 82.2 H (22.0-30.0) sec Glucose (74-99) mg/dL Total Protein (6.3-8.2) g/dL Albumin (3.5-5.0) g/dL 10/28/16 10/28/16 Range/Units 05:18 12:05 RBC (4.30-5.90) m/uL Hgb (13.0-17.5) gm/dL Hct (39.0-53.0) % MCV (80.0-100.0) fL APTT 48.5 H (22.0-30.0) sec Glucose 110 H (74-99) mg/dL Total Protein 5.9 L (6.3-8.2) g/dL Albumin 3.4 L (3.5-5.0) g/dL Assessment and Plan (1) Deep vein thrombosis of lower extremity Narrative/Plan: Case was discussed with Dr. Watts. Recommendation is that patient could be placed back on the 5 mg twice a day of eliquis, as patient did not have any blood clots while on that dose and had done well on it for many years. Pt could also be started on Xarelto, renal function is adequate for the same. After talking with the patient it is questionable whether he will be able to manage on Lovenox injections so injectable should be discussed with him further and final decision for anticoagulation based on pt ability to self manage. If you have any further questions please don't hesitate to contact us. Status: Acute
[2016-10-28] MEDS: ATORVASTATIN 10 MG TAB PO SCH (20:42)
[2016-10-28] MEDS: MONTELUKAST 10 MG TAB PO SCH (20:43)
[2016-10-28] MEDS: PRIMIDONE 50 MG TAB PO SCH (20:43)
[2016-10-28] MEDS: PANTOPRAZOLE 40 MG TABLET PO SCH (20:45)
[2016-10-28] MEDS: amLODIPine 5 MG TAB PO SCH (20:50)
[2016-10-29] MEDS: ENOXAPARIN 80 MG/0.8 ML SYRINGE SQ SCH (08:21)
[2016-10-29] MEDS: ATENOLOL 50 MG TAB PO SCH (08:22)
[2016-10-29] MEDS: cycloSPORINE 0.05% OPHTH 0.4 ML DROPERETTE BOTH EYES SCH (08:22)
[2016-10-29] MEDS: CYANOCOBALAMIN 500 MCG TAB PO SCH (08:22)
[2016-10-29] MEDS: LORATADINE 10 MG TAB PO SCH (08:24)
[2016-10-29] MEDS: SOTALOL 80 MG TAB PO SCH (08:24)
[2016-10-29] MEDS: MULTIVITAMINS, THERA 1 EACH TAB PO SCH (08:24)
[2016-10-29] MEDS: LISINOPRIL 10 MG TAB PO SCH (08:24)
[2016-10-29 08:45] LABS: Basophils # (A) 0.1 k/uL (0-0.2); Basophils % (A) 1 %; CH 34.8; CHCM 33.6; Eosinophils # (A) 0.4 k/uL (0-0.7); Eosinophils % (A) 6 %; HCT 41.9 % (39.0-53.0); HDW 2.29; HGB 14.4 gm/dL (13.0-17.5); Luc # (Auto) 0.14; Luc % (Auto) 2; Lymphocytes # (A) 1.6 k/uL (1.0-4.8); Lymphocytes % (A) 23 %; MCH 35.8 pg (25.0-35.0); MCHC 34.4 g/dL (31.0-37.0); Macrocytosis Slight; Mean Platelet Volume 7.6; Monocytes # (A) 0.6 k/uL (0-1.0); Monocytes % (A) 8 %; Neutrophils % (A) 60 %; RBC 4.03 m/uL (4.30-5.90); RDW 12.7 % (11.5-15.5); WBC 6.7 k/uL (3.8-10.6); WBC (Perox) 7.23
[2016-10-29 08:49] LABS: Prothrombin Time 10.6 sec (9.0-12.0)
--- NOTE | 2016-10-29 08:49 | PN ---
DATE OF SERVICE: 10/28/2016 This 86-year-old gentleman was admitted with left leg swelling had significant deep venous thrombosis of the left leg. The patient is IV heparin. The patient's left leg swelling is better. The patient had recently been reduced. The Eliquis dose was reduced. Financial Services Technician following the patient closely. The patient also had chest, abdomen and pelvis CAT scan also which showed sigmoid diverticulosis and no other major abnormalities. PAST MEDICAL HISTORY: Reviewed. REVIEW OF SYSTEMS: CARDIOVASCULAR: No angina. RESPIRATORY: As mentioned earlier. GI: As mentioned. : No dysuria. NERVOUS SYSTEM: No numbness or weakness. Current medications are reviewed and include: 1. Tylenol 500 mg q.6 p.r.n. 2. Tylenol #3. 3. Ventolin 2.5 q.i.d. 4. Norvasc 5 mg q.h.s. 5. Artificial Tears. 6. Tenormin 50 mg q.a.m. 7. Lipitor 10 mg q.h.s. 8. Vitamin B12. 9. Restasis. 10. Lovenox. 12. Zestril 10 mg. 13. Claritin 10 mg q.a.m. 14. Singulair 10 mg daily. 15. Multivitamins. 16. Narcan. 17. Protonix. 18. Mysoline. 19. Betapace. 20. Ultram. PHYSICAL EXAMINATION: Patient is alert and oriented x3. Pulse 61, blood pressure 126/70, respirations 20, temperature 97.4, pulse ox 98% on room air. HEENT: Conjunctivae normal. NECK: No jugular venous distention. CARDIOVASCULAR: S1 and S2, muffled. RESPIRATORY: Breath sounds diminished at the bases. A few scattered rhonchi. No crackles. ABDOMEN: Soft, nontender. LEGS: Left leg swelling and edema present, which is slightly better but still some mild discomfort also still present. SKIN: No ulcer, rash or bleeding. LABS: WBC 6.5, hemoglobin is 12.9, MCV 107, albumin 3.4. ASSESSMENT: 1. Pain and swelling of the left leg with acute deep venous thrombosis of the left leg. 2. Positive Eliquis 2.5 mg. 3. Paroxysmal atrial fibrillation history. 4. History of coronary artery disease. 5. History of gastroesophageal reflux disease. 6. Hypertension. 7. Hyperlipidemia. 8. Heparin monitoring. 9. History of degenerative joint disease. 10. History of syncope. 11. History of pacemaker implantation. 12. History of glaucoma. 13. History of degenerative joint disease. 14. History of methicillin-resistant Staphylococcus aureus. 15. Anemia, macrocytic mild, possibly secondary to nutritional. 16. Increased random blood sugar. 17. Mild hypoalbuminemia with mild to moderate protein calorie malnutrition. RECOMMENDATIONS AND DISCUSSION: I recommend to continue current medications, continue with monitoring, symptomatic treatment otherwise. At this time I would recommend to continue with Lovenox. I had a detailed discussion with Dr. VC Zheng, cardiology, who felt that the Eliquis dose should be increased to 5 mg, which should be sufficient. Will continue to monitor. Dr. Conner, Hematology and Oncology also following the patient closely as well. CT scan been ordered to rule out the possibility of any malignancy. Prognosis guarded. Further recommendations to follow. MTDD
--- NOTE | 2016-10-29 10:16 | ECHOF ---
Referral Reason:atrial fib MEASUREMENTS -------- HEIGHT: 177.8 cm WEIGHT: 88.5 kg BP: 130/89 IVSd: 1.3 cm (0.6 - 1.1) LVIDd: 5.6 cm (3.9 - 5.3) LVPWd: 1.3 cm (0.6 - 1.1) IVSs: 1.8 cm LVIDs: 2.7 cm LVPWs: 1.8 cm LAESV Index (A-L): 20.36 ml/m Ao Diam: 3.5 cm (2.0 - 3.7) AV Cusp: 1.6 cm (1.5 - 2.6) LA Diam: 2.4 cm (2.7 - 3.8) MV EXCURSION: 16.594 mm (> 18.000) MV EF SLOPE: 103 mm/s (70 - 150) EPSS: 0.5 cm MV E Nash: 1.31 m/s MV DecT: 236 ms MV A Nash: 0.63 m/s MV E/A Ratio: 2.06 RAP: 5.00 mmHg RVSP: 37.37 mmHg FINDINGS -------- Sinus rhythm with extra systolic beats. This was a technically adequate study. There is mild concentric left ventricular hypertrophy. Overall left ventricular systolic function is normal with, an EF between 55 - 60 %. The right ventricle is normal in size and function. Normal LA size by volume 22+/-6 ml/m2. Electronic pacemaker lead seen in the right ventricular cavity. RA appears enlarged. Aortic valve is trileaflet and is mildly thickened. There is mild aortic valve sclerosis. There is no evidence of aortic stenosis. The mitral valve leaflets are mildly thickened. Mild mitral annular calcification present. Pfrx-rb-dvraxjot mitral regurgitation is present. Mild tricuspid regurgitation present. There is mild pulmonary hypertension. The right ventricular systolic pressure, as measured by Doppler, is 37.37mmHg. The pulmonic valve was not well visualized. The aortic root size is normal. The inferior vena cava is mildly dilated. The inferior vena cava is dilated with poor inspiratory collapse which is consistent with estimated right atrial pressure of 20 mmHg. The pericardium is normal. There is no pericardial effusion. CONCLUSIONS -------- 1. Sinus rhythm with extra systolic beats. 2. Mild mitral annular calcification present. 3. Lqpu-bg-bozywzod mitral regurgitation is present. 4. Mild tricuspid regurgitation present. 5. There is mild pulmonary hypertension. 6. The right ventricular systolic pressure, as measured by Doppler, is 37.37mmHg. 7. The pulmonic valve was not well visualized. 8. The aortic root size is normal. 9. The inferior vena cava is mildly dilated. 10. The inferior vena cava is dilated with poor inspiratory collapse which is consistent with estimated right atrial pressure of 20 mmHg. 11. There is no pericardial effusion. 12. This was a technically adequate study. 13. There is mild concentric left ventricular hypertrophy. 14. Overall left ventricular systolic function is normal with, an EF between 55 - 60 %. 15. Normal LA size by volume 22+/-6 ml/m2. 16. Electronic pacemaker lead seen in the right ventricular cavity. 17. RA appears enlarged. 18. Aortic valve is trileaflet and is mildly thickened. 19. The mitral valve leaflets are mildly thickened. MACHINE CONTAINER WASHER: Ronnie Mack RDCS
[2016-10-29 10:22] VITALS: BP 135/87; PULSE 63; RESP 16; TEMP 97.7
--- NOTE | 2016-10-29 12:03 | P.PN ---
Subjective Principal diagnosis: Left lower extremity DVT This is a very pleasant 86-year-old gentleman who follows with Dr. Espinoza in our office as his primary care physician. He has a history of coronary artery disease, chronic bronchial asthma, gastroesophageal reflux disease, hyperlipidemia, hypertension, atrial fibrillation with permanent pacemaker implantation. He also has a history of MRSA infection in the right axillary region in July 2016. He was seen [address] Espinoza for complaints of shortness of breath and coughing and wheezing. He was also noted to have noted to have increased edema in the left lower extremity. He was referred for outpatient Dopplers and was found to be positive for DVT in the left lower extremity. The patient had been on Eliquis 2.5 mg twice a day. He was admitted for the same. He is seen today in consultation on the regular medical floor. He is awake and alert in no acute distress. He denies any worsening shortness of breath, cough or congestion. The edema of the lower extremity is still present but slightly improved. Pulses are palpable. He was seen and evaluated by cardiology who discontinued the heparin and started the patient on Lovenox injections for now. The patient has no other complaints. His chest x- ray did not reveal any acute pulmonary processes. There was evidence of COPD. He is maintaining good O2 saturations in the upper 90s on room air. He's been hemodynamically stable. The patient is seen again today 10/29/2016 in follow-up on the regular medical floor. He is awake and alert in no acute distress. He has no pulmonary complaints. He is maintaining good O2 saturations in the 90s on room air. He' s been afebrile. Hemodynamically stable. The edema of the left lower extremity has improved. He was seen by cardiology who plan to increase the Eliquis 5 mg twice a day. He is currently on Lovenox. Objective - Vital Signs Vital signs: Vital Signs Temp 97.7 F 10/29/16 07:00 Pulse 63 10/29/16 07:00 Resp 16 10/29/16 07:00 BP 135/87 10/29/16 07:00 Pulse Ox 96 10/29/16 07:00 Intake & Output 10/28/16 10/29/16 10/29/16 18:59 06:59 18:59 Intake Total 2943.876 50 500 Output Total 300 400 400 Balance 2643.876 -350 100 Weight 88.451 kg 88.451 kg Intake: Intake, IV Titration 293.876 Amount Heparin Sodium,Porcine/ 93.876 D5w Pmx 25,000 unit In Dextrose/Water 1 500ml. bag @ 18 UNITS/KG/HR 31. 84 mls/hr IV .[id number] [facility] Rx#:[id number] Sodium Chloride 0.9% 1, 200 000 ml @ 20 mls/hr IV . Q24H [facility] Rx#:[id number] Oral 2650 50 500 Output: Urine 300 400 400 Other: Voiding Method Urinal Urinal Toilet Urinal # Voids 3 1 3 # Bowel Movements 2 - Exam GENERAL EXAM: Alert, comfortable in no apparent distress. HEAD: Normocephalic. EYES: Normal reaction of pupils, equal size. NOSE: Clear with pink turbinates. THROAT: No erythema or exudates. NECK: No masses, no JVD. CHEST: No chest wall deformity. LUNGS: Equal air entry with no crackles, wheeze, rhonchi or dullness. CVS: S1 and S2 normal with no audible murmurs, irregular rhythm. ABDOMEN: No hepatosplenomegaly, normal bowel sounds, no guarding or rigidity. SPINE: No scoliosis or deformity SKIN: No rashes CENTRAL NERVOUS SYSTEM: No focal deficits, tone is normal in all 4 extremities. Extremities: There is 1+ edema of the lower extremity of the left. Peripheral pulses are intact. No clubbing, no cyanosis. - Labs CBC & Chem 7: 10/29/16 07:53 10/28/16 05:18 Labs: Abnormal Lab Results - Last 24 Hours (Table) 10/28/16 10/29/16 Range/Units 12:05 07:53 RBC 4.03 L (4.30-5.90) m/uL MCV 104.0 H (80.0-100.0) fL MCH 35.8 H (25.0-35.0) pg APTT 48.5 H (22.0-30.0) sec Assessment and Plan Plan: Impression: #1 Left lower extremity edema secondary to DVT. This developed despite the patient being anticoagulated with Eliquis 2.5 mg twice a day. #2 Paroxysmal atrial fibrillation status post permanent pacemaker implantation. Anticoagulated with Eliquis. #3 Chronic thrombocytopenia. #4 Hyperlipidemia. #5 Hypertension. #6 Chronic mild intermittent bronchial asthma, currently inactive and stable. #7 Coronary artery disease. #8 History of MRSA in the right axilla in July 2016. Plan: The patient was seen and evaluated by Dr. Conner. We will continue with his current medications. Anticoagulants per cardiology. The plan may be to increase the Eliquis to 5 mg twice a day. He is stable from the pulmonary standpoint and could be discharged home. He will follow-up with Dr. Espinoza in our office in 1-2 weeks' time. HEENT his are both however encouraged to call sooner with any recurrence of symptoms or other questions or concerns.
--- NOTE | 2016-10-29 14:03 | PN ---
This patient is admitted with acute deep venous thrombosis in the left leg is feeling well. The swelling in the left leg is improved. The patient denies any pain. The CT scan of the abdomen and pelvis was negative for any underlying malignancy. First and second heart sounds are normal. Lungs are clinically clear to auscultation and percussion. Discussed with the patient. Patient can be discharged home on Eliquis 5 mg b.i.d. and he will up with Dr. Stewart in a couple of weeks.
--- NOTE | 2016-10-29 20:59 | DS ---
DATE OF ADMISSION: 10/27/2016 DATE OF DISCHARGE: 10/29/2016 FINAL DIAGNOSES: 1. Acute deep venous thrombosis of the left leg, improved. 2. On Eliquis. 3. Paroxysmal atrial fibrillation history. 4. History of coronary artery disease. 5. History of gastroesophageal reflux disease. 6. Hypertension, essential. 7. Hyperlipidemia. 8. Heparin monitoring. 9. History of degenerative joint disease. 10. History of syncope. 11. History of pacemaker implantation. 12. History of glaucoma. 13. History of degenerative joint disease. 14. History of methicillin-resistant Staphylococcus aureus. 15. Anemia, macrocytic, possibly nutrition. 16. Increased random blood sugar. 17. Mild hypoalbuminemia with mild to moderate protein calorie malnutrition. 18. FULL CODE. DISCHARGE DISPOSITION: The patient will be discharged in a stable condition with guarded prognosis. HISTORY OF PRESENT ILLNESS: This 86-year-old gentleman with a past medical history of multiple medical problems was admitted with pain and swelling and acute deep venous thrombosis of the left leg. Patient treated with heparin and subsequent Coumadin. The case discussed with Cardiology, Dr. VC Zheng and as well as Dr. Watts, Oncology. The patient will be reverted back to previous dose of Eliquis. Patient improved significantly. On exam, Vitals are stable. CARDIOVASCULAR: S1, S2. ABDOMEN: Soft. NERVOUS SYSTEM: No focal deficits. The CT scan of the abdomen and pelvis was negative. DISCHARGE ADVICE: 1. Diet is cardiac. 2. Activity limited until follow up. 3. Follow up with Dr. Espinoza in 2 to 3 days. 4. Follow up with Dr. Watts and Cardiology as recommended. Medications are as follows: 1. Tylenol 500 mg q.6 p.r.n. 2. Tylenol No. 3, 1 p.o. q.6h p.r.n. 3. ProAir HFA 2 puffs q.i.d. 4. Norvasc 5 mg q.h.s. 5. Eliquis 5 mg p.o. b.i.d. 6. Tenormin 50 mg q.a.m. 7. Biotin 10,000 mcg p.o. daily. 8. Zyrtec 10 mg q.a.m. 9. Vitamin B 2000 mcg p.o. daily. 10. Cyclosporin 0.05% one drop both eyes. 11. Fluticasone 2 sprays each nostril. 12. Zestril 10 mg p.o. b.i.d. 13. Singulair 10 mg p.o. q.h.s. 14. Multivitamin 1 p.o. daily. 15. Prilosec 20 mg p.o. q.h.s. 16. Mysoline 50 mg p.o. q.h.s. 17. Systane one drop both eyes. 18. Zocor 10 mg p.o. q.h.s. 19. Betapace 20 mg p.o. b.i.d. 20. Ultram 50 mg p.o. with supper. Once again the patient will be discharged in stable condition with guarded prognosis.
== END 2016-10-29 14:00 | disposition home health service (06) | DRG 300 ==
LOC: EC 14:37 → 5MS5E 15:39
PROVIDERS: ADMIT Internal Medicine; ATTEND Internal Medicine
DX: I82.402 Acute embolism and thrombosis of unspecified deep veins of left lower extremity (principal); E44.0 Moderate protein-calorie malnutrition; D69.6 Thrombocytopenia, unspecified; J44.9 Chronic obstructive pulmonary disease, unspecified; D53.9 Nutritional anemia, unspecified; I48.0 Paroxysmal atrial fibrillation; E78.5 Hyperlipidemia, unspecified; I10 Essential (primary) hypertension; H40.9 Unspecified glaucoma; I25.10 Atherosclerotic heart disease of native coronary artery without angina pectoris; K21.9 Gastro-esophageal reflux disease without esophagitis; K57.30 Diverticulosis of large intestine without perforation or abscess without bleeding; Z79.01 Long term (current) use of anticoagulants; Z79.899 Other long term (current) drug therapy; Z86.14 Personal history of Methicillin resistant Staphylococcus aureus infection; Z95.0 Presence of cardiac pacemaker; Z96.1 Presence of intraocular lens; Z96.653 Presence of artificial knee joint, bilateral; Z96.642 Presence of left artificial hip joint
CPT/HCPCS: 71250; 74176; 80053; 85025; 85379; 85610; 85730; 87324; 93005; 93306; 96365; 96376; 99284

== ENCOUNTER → 2016-10-27 | Outpatient (CLI) | payer MEDICARE, BC, OTHER ==
--- NOTE | 2016-10-27 14:54 | US ---
EXAMINATION TYPE: US venous doppler duplex LE LT DATE OF EXAM: 10/27/2016 2:26 PM COMPARISON: NONE CLINICAL HISTORY: M79.662 Pain in left lower leg. Swelling to left leg, on thinners for pacemaker, no h/o dvt SIDE PERFORMED: Left TECHNIQUE: The lower extremity deep venous system is examined utilizing real time linear array sonog abena with graded compression, doppler sonography and color-flow sonography. VESSELS IMAGED: External Iliac Vein (EIV) Common Femoral Vein Deep Femoral Vein Greater Saphenous Vein * Femoral Vein Popliteal Vein Small Saphenous Vein * Proximal Calf Veins (* superficial vessels) *tech impression to Myriam at Olga's office, sending pt to ER @1430 Left Leg: Appears to have thrombus within left mid and distal femoral vein, echogenic debris that wa s not fully compressible IMPRESSION: 1. Deep venous thrombosis left mid and distal femoral vein. Report was provided to the office 1430 ho urs.
== END | disposition home or self-care (01) ==
LOC: RADUSWWP 13:39
PROVIDERS: ATTEND Internal Medicine
DX: I82.412 Acute embolism and thrombosis of left femoral vein (principal)

== ENCOUNTER → 2017-07-21 | Outpatient (CLI) | payer MEDICARE, BC, OTHER ==
[2017-07-21 13:10] LABS: ALT 23 U/L (21-72); AST 16 U/L (17-59); Albumin 3.7 g/dL (3.5-5.0); Alkaline Phosphatase 58 U/L (38-126); Anion Gap 9 mmol/L; Blood Urea Nitrogen 15 mg/dL (9-20); Calcium 9.6 mg/dL (8.4-10.2); Carbon Dioxide 28 mmol/L (22-30); Chloride 101 mmol/L (98-107); Cholesterol 173 mg/dL (<200); Glucose 93 mg/dL (74-99); HDL Cholesterol 74 mg/dL (40-60); LDL Cholesterol,Calculated 81 mg/dL (0-99); Potassium 4.5 mmol/L (3.5-5.1); Sodium 138 mmol/L (137-145); Total Bilirubin 0.9 mg/dL (0.2-1.3); Total Protein 6.4 g/dL (6.3-8.2); Triglycerides 89 mg/dL (<150)
== END | disposition home or self-care (01) ==
LOC: LABWHC1 11:39
PROVIDERS: ATTEND Internal Medicine Interventional Cardiology
DX: E78.2 Mixed hyperlipidemia (principal)
CPT/HCPCS: 36415; 80053; 80061

== ENCOUNTER → 2017-09-14 | Outpatient (CLI) | payer MEDICARE, BC, OTHER ==
[2017-09-14 12:47] LABS: ALT 15 U/L (21-72); AST 21 U/L (17-59); Albumin 3.9 g/dL (3.5-5.0); Alkaline Phosphatase 62 U/L (38-126); Anion Gap 13 mmol/L; Blood Urea Nitrogen 18 mg/dL (9-20); Calcium 9.5 mg/dL (8.4-10.2); Carbon Dioxide 27 mmol/L (22-30); Chloride 101 mmol/L (98-107); Creatine Kinase 28 U/L (55-170); Glucose 93 mg/dL (74-99); Magnesium 1.9 mg/dL (1.6-2.3); Phosphorus 3.6 mg/dL (2.5-4.5); Potassium 4.5 mmol/L (3.5-5.1); Sodium 141 mmol/L (137-145); Total Bilirubin 0.7 mg/dL (0.2-1.3); Total Protein 6.4 g/dL (6.3-8.2)
[2017-09-14 12:57] LABS: T4, Free (Free Thyroxine) 0.98 ng/dL (0.78-2.19)
[2017-09-14 19:14] LABS: Vitamin D 25 Hydroxy 46.2 ng/mL (30.0-100.0)
== END | disposition home or self-care (01) ==
LOC: LABWHC1 11:28
PROVIDERS: ATTEND Internal Medicine
DX: R53.83 Other fatigue (principal); R53.1 Weakness
CPT/HCPCS: 36415; 80053; 82306; 82533; 82550; 82607; 83735; 84100; 84439; 84443; 85652

== ENCOUNTER → 2017-12-28 | Outpatient (CLI) | payer MEDICARE, BC, OTHER ==
[2017-12-28 12:25] LABS: Basophils # (A) 0.1 k/uL (0-0.2); Basophils % (A) 1 %; Eosinophils # (A) 0.8 k/uL (0-0.7); Eosinophils % (A) 10 %; HGB 13.9 gm/dL (13.0-17.5); Lymphocytes % (A) 26 %; MCH 34.2 pg (25.0-35.0); MCV 103.5 fL (80.0-100.0); Macrocytosis Slight; Mean Platelet Volume 7.5; Monocytes # (A) 0.6 k/uL (0-1.0); Monocytes % (A) 8 %; Neutrophils # (A) 4.3 k/uL (1.3-7.7); Neutrophils % (A) 55 %; Platelet Count 231 k/uL (150-450); RBC 4.06 m/uL (4.30-5.90); RDW 13.1 % (11.5-15.5); WBC 7.9 k/uL (3.8-10.6)
== END | disposition home or self-care (01) ==
LOC: LABWHC1 11:33
PROVIDERS: ATTEND Internal Medicine
DX: I10 Essential (primary) hypertension (principal); I25.10 Atherosclerotic heart disease of native coronary artery without angina pectoris; H34.239 Retinal artery branch occlusion, unspecified eye
CPT/HCPCS: 36415; 82310; 85025; 86141

== ENCOUNTER 2018-03-15 11:22 | Emergency (ER) | payer MEDICARE, BC, OTHER ==
[2018-03-15 11:28] VITALS: RESP 18
--- NOTE | 2018-03-15 11:54 | ED ---
General Adult HPI - General Chief complaint: Shortness of Breath Stated complaint: SOB Time Seen by Provider: 03/15/18 11:37 Source: patient, RN notes reviewed Mode of arrival: wheelchair Limitations: no limitations - History of Present Illness Initial comments: Patient is a pleasant 87-year-old male presenting to the emergency department with difficulty in breathing. Patient denies any history of previous lung problems or COPD however does admit that he does regularly take inhalers. Symptoms have been occurring for the past several days, worse yesterday and today. Patient does have cough with rare sputum production. Patient states his chest feels congested and he feels that he is wheezing. Patient denies having previous history of wheezing. Symptoms are somewhat worse with exertion however improved throughout the day. No leg pain or leg swelling. No chest pain. - Related Data Home Medications Medication Instructions Recorded Confirmed Atenolol [Tenormin] 50 mg PO BID 09/25/14 03/15/18 Montelukast [Singulair] 10 mg PO HS 09/25/14 03/15/18 Primidone [Mysoline] 50 mg PO BID 09/25/14 03/15/18 Propylene Glycol/Peg 400/Pf 1 drop BOTH EYES QID PRN 09/25/14 03/15/18 [Systane 0.3-0.4% Eye Drops] Simvastatin [Zocor] 20 mg PO HS 09/25/14 03/15/18 Sotalol [Betapace] 80 mg PO BID 09/25/14 03/15/18 traMADol HCl [Ultram] 50 mg PO W/SUPPER 09/25/14 03/15/18 Acetaminophen Tab [Tylenol] 500 mg PO Q6HR PRN 08/14/16 03/15/18 Acetaminophen-Codeine 300-30mg 1 tab PO HS PRN 08/14/16 03/15/18 [Tylenol w/codeine #3] Fluticasone Nasal [place] [Flonase 2 spr EA NOSTRIL DAILY PRN 08/14/16 03/15/18 Nasal [place]] Multivitamins, Thera [Multivitamin 1 tab PO QAM 08/14/16 03/15/18 (formulary)] cycloSPORINE 0.05% OPHTH SOLN 1 drop BOTH EYES BID 08/14/16 03/15/18 [Restasis] Albuterol Sulfate [Proair Hfa] 2 puff INHALATION RT-QID PRN 10/27/16 03/15/18 Biotin 10,000 mcg PO QAM 10/27/16 03/15/18 Cetirizine HCl [Zyrtec] 10 mg PO QAM 10/27/16 03/15/18 Losartan Potassium [Cozaar] 25 mg PO HS 03/15/18 03/15/18 Tamsulosin [Flomax] 0.4 mg PO BID 03/15/18 03/15/18 Previous Rx's Medication Instructions Recorded Apixaban [Eliquis] 5 mg PO BID #60 tab 10/29/16 methylPREDNISolone Dose Pack 24 mg PO DAILY #1 tab 03/15/18 [Medrol Dose Pack] Allergies Allergy/AdvReac Type Severity Reaction Status Date / Time No Known Allergies Allergy Verified 03/15/18 12:11 Review of Systems ROS Statement: Those systems with pertinent positive or pertinent negative responses have been documented in the HPI. ROS Other: All systems not noted in ROS Statement are negative. Constitutional: Denies: fever, chills Eyes: Denies: eye pain ENT: Denies: ear pain Respiratory: Reports: cough, dyspnea Cardiovascular: Denies: chest pain Endocrine: Denies: fatigue Gastrointestinal: Denies: abdominal pain Genitourinary: Denies: dysuria Musculoskeletal: Denies: back pain Skin: Denies: rash Neurological: Denies: weakness Past Medical History Past Medical History: Asthma, Coronary Artery Disease (CAD), GERD/Reflux, Hyperlipidemia, Hypertension, Osteoarthritis (OA), Syncope Additional Past Medical History / Comment(s): PAST AA FIBPacemaker insertion, SYNCOPE /RENAL FALIURE -RESOLVED, GLAUCOMA, CATARACTS(HAD SX - IMPLANTS), ARTHRITIS KNEES,HIPS, LT SHOULDER, BACK PAIN> History of Any Multi-Drug Resistant Organisms: MRSA Date of last positivie culture/infection: 08/06/16 MDRO Source:: Right Axilla Past Surgical History: Appendectomy, Heart Catheterization, Pacemaker, Tonsillectomy Additional Past Surgical History / Comment(s): BILATERAL KNEE REPLACED, LEFT HIP REPLACED, JAN CATARACT-LENS IMPLANTS,I&D RT AXILLA(MRSA), RT EYE SX FOR GLAUCOMA Past Anesthesia/Blood Transfusion Reactions: No Reported Reaction Type of Cardiac Device: Unknown Device Placement Date:: unknown Past Psychological History: No Psychological Hx Reported Smoking Status: Never smoker Past Alcohol Use History: None Reported Past Drug Use History: None Reported - Past Family History Mother Family Medical History: Dementia Father Family Medical History: No Reported History General Exam Limitations: no limitations General appearance: alert, in no apparent distress Head exam: Present: atraumatic Eye exam: Present: normal appearance, PERRL ENT exam: Present: normal oropharynx Neck exam: Present: normal inspection Respiratory exam: Present: wheezes, decreased breath sounds Cardiovascular Exam: Present: regular rate, normal rhythm GI/Abdominal exam: Present: soft. Absent: tenderness Extremities exam: Present: other (Trace edema on the left with patient states is chronic). Absent: calf tenderness Neurological exam: Present: alert Psychiatric exam: Present: normal affect, normal mood Skin exam: Present: normal color Course Vital Signs 03/15/18 03/15/18 03/15/18 11:24 11:56 12:00 Temperature 98 F Pulse Rate 76 Respiratory 18 Rate Blood Pressure 113/73 107/62 O2 Sat by Pulse 95 96 97 Oximetry 03/15/18 03/15/18 03/15/18 12:30 13:00 13:30 Temperature Pulse Rate 69 71 71 Respiratory 18 18 18 Rate Blood Pressure 107/62 126/73 117/73 O2 Sat by Pulse 98 100 Oximetry EKG Findings - EKG Comments: EKG Findings:: Sinus rhythm at 73. For screening AV block with MO of 222. QRS 72. QT 392. QTC 431. Left axis. Normal QRS. No acute ST change. Medical Decision Making - Medical Decision Making Patient reevaluated and still has some wheezing. Patient has not yet received his nebulizer treatment. Patient recommended admission for continued treatments and IV steroids. Patient refuses this and that he needs to go home and help take her of the female accompanying him. Patient is receptive to Medrol Dosepak and agrees to return if symptoms worsen. - Lab Data Result diagrams: 03/15/18 12:27 03/15/18 12:27 Lab Results 03/15/18 03/15/18 03/15/18 Range/Units 12:27 12:27 12:27 WBC 8.1 (3.8-10.6) k/uL RBC 4.09 L (4.30-5.90) m/uL Hgb 14.0 (13.0-17.5) gm/dL Hct 42.2 (39.0-53.0) % MCV 103.2 H (80.0-100.0) fL MCH 34.1 (25.0-35.0) pg MCHC 33.1 (31.0-37.0) g/dL RDW 12.9 (11.5-15.5) % Plt Count 230 (150-450) k/uL Neutrophils % 60 % Lymphocytes % 22 % Monocytes % 8 % Eosinophils % 9 % Basophils % 0 % Neutrophils # 4.8 (1.3-7.7) k/uL Lymphocytes # 1.8 (1.0-4.8) k/uL Monocytes # 0.7 (0-1.0) k/uL Eosinophils # 0.7 (0-0.7) k/uL Basophils # 0.0 (0-0.2) k/uL Macrocytosis Slight PT (9.0-12.0) sec INR (<1.2) APTT (22.0-30.0) sec Sodium 137 (137-145) mmol/L Potassium 5.0 (3.5-5.1) mmol/L Chloride 102 (98-107) mmol/L Carbon Dioxide 28 (22-30) mmol/L Anion Gap 7 mmol/L BUN 17 (9-20) mg/dL Creatinine 0.91 (0.66-1.25) mg/dL Est GFR (CKD-EPI)AfAm 88 (>60 ml/min/1.73 sqM) Est GFR (CKD-EPI)NonAf 76 (>60 ml/min/1.73 sqM) Glucose 103 H (74-99) mg/dL Calcium 9.7 (8.4-10.2) mg/dL Total Bilirubin 0.7 (0.2-1.3) mg/dL AST 21 (17-59) U/L ALT 23 (21-72) U/L Alkaline Phosphatase 63 (38-126) U/L Total Creatine Kinase 27 L (55-170) U/L CK-MB (CK-2) 0.8 (0.0-2.4) ng/mL CK-MB (CK-2) Rel Index 3.0 Troponin I <0.012 (0.000-0.034) ng/mL NT-Pro-B Natriuret Pep pg/mL Total Protein 6.4 (6.3-8.2) g/dL Albumin 3.6 (3.5-5.0) g/dL 03/15/18 03/15/18 Range/Units 12:27 12:27 WBC (3.8-10.6) k/uL RBC (4.30-5.90) m/uL Hgb (13.0-17.5) gm/dL Hct (39.0-53.0) % MCV (80.0-100.0) fL MCH (25.0-35.0) pg MCHC (31.0-37.0) g/dL RDW (11.5-15.5) % Plt Count (150-450) k/uL Neutrophils % % Lymphocytes % % Monocytes % % Eosinophils % % Basophils % % Neutrophils # (1.3-7.7) k/uL Lymphocytes # (1.0-4.8) k/uL Monocytes # (0-1.0) k/uL Eosinophils # (0-0.7) k/uL Basophils # (0-0.2) k/uL Macrocytosis PT 9.9 (9.0-12.0) sec INR 1.0 (<1.2) APTT 25.1 (22.0-30.0) sec Sodium (137-145) mmol/L Potassium (3.5-5.1) mmol/L Chloride (98-107) mmol/L Carbon Dioxide (22-30) mmol/L Anion Gap mmol/L BUN (9-20) mg/dL Creatinine (0.66-1.25) mg/dL Est GFR (CKD-EPI)AfAm (>60 ml/min/1.73 sqM) Est GFR (CKD-EPI)NonAf (>60 ml/min/1.73 sqM) Glucose (74-99) mg/dL Calcium (8.4-10.2) mg/dL Total Bilirubin (0.2-1.3) mg/dL AST (17-59) U/L ALT (21-72) U/L Alkaline Phosphatase (38-126) U/L Total Creatine Kinase (55-170) U/L CK-MB (CK-2) (0.0-2.4) ng/mL CK-MB (CK-2) Rel Index Troponin I (0.000-0.034) ng/mL NT-Pro-B Natriuret Pep 993 pg/mL Total Protein (6.3-8.2) g/dL Albumin (3.5-5.0) g/dL - Radiology Data Radiology results: image reviewed (Chest x-ray shows no acute process) Disposition Clinical Impression: Acute exacerbation of chronic obstructive airways disease Disposition: HOME SELF-CARE Condition: Stable Instructions: Wheezing (ED) Additional Instructions: Please follow-up with Dr. Espinoza this week. Return for fever, difficulty breathing, worsening symptoms, or any other concerns. Prescriptions: methylPREDNISolone Dose Pack [Medrol Dose Pack] 24 mg PO DAILY #1 tab Is patient prescribed a controlled substance at d/c from ED?: No Referrals: James Espinoza MD [Primary Care Provider] - 1-2 days Time of Disposition: 14:08
[2018-03-15 12:56] LABS: Basophils % (A) 0 %; Eosinophils # (A) 0.7 k/uL (0-0.7); Eosinophils % (A) 9 %; HCT 42.2 % (39.0-53.0); Lymphocytes # (A) 1.8 k/uL (1.0-4.8); Lymphocytes % (A) 22 %; MCH 34.1 pg (25.0-35.0); MCHC 33.1 g/dL (31.0-37.0); MCV 103.2 fL (80.0-100.0); Macrocytosis Slight; Monocytes # (A) 0.7 k/uL (0-1.0); Monocytes % (A) 8 %; Neutrophils # (A) 4.8 k/uL (1.3-7.7); Neutrophils % (A) 60 %; Platelet Count 230 k/uL (150-450); RBC 4.09 m/uL (4.30-5.90); RDW 12.9 % (11.5-15.5); WBC 8.1 k/uL (3.8-10.6)
[2018-03-15] MEDS ORDERED: IPRATROPIUM-ALBUTEROL 3 ML NEB INHALATION STA (12:59)
[2018-03-15 13:05] LABS: Partial Thromboplastin Time 25.1 sec (22.0-30.0); Prothrombin Time 9.9 sec (9.0-12.0)
--- NOTE | 2018-03-15 13:15 | XR ---
EXAMINATION TYPE: XR chest 2V DATE OF EXAM: 03/15/2018 COMPARISON: 08/14/16 HISTORY: Shortness of breath TECHNIQUE: Frontal and lateral views of the chest are obtained. FINDINGS: Scattered senescent parenchymal changes noted. Hyperinflation compatible with COPD. No evidence for infiltrate. No evidence for atelectasis. Heart size is stable. Mediastinal structures are stable and grossly unremarkable. No evidence for hilar prominence. Degenerative changes dorsal spine. IMPRESSION: 1. No evidence for acute pulmonary disease.
[2018-03-15 13:17] LABS: Albumin 3.6 g/dL (3.5-5.0); Calcium 9.7 mg/dL (8.4-10.2); Total Bilirubin 0.7 mg/dL (0.2-1.3); Total Protein 6.4 g/dL (6.3-8.2)
[2018-03-15 13:20] LABS: Creatine Kinase 27 U/L (55-170)
[2018-03-15 13:34] LABS: Creatine Kinase MB 0.8 ng/mL (0.0-2.4); Troponin I <0.012 ng/mL (0.000-0.034)
[2018-03-15] MEDS ORDERED: methylPREDNISolone SOD SUCCI 125 MG/2 ML VIAL IV STA (14:08)
[2018-03-15 14:22] VITALS: PULSE 76
[2018-03-15] MEDS ORDERED: LOSARTAN 25 MG TAB PO STA (14:33)
[2018-03-15 14:41] VITALS: BP 148/74; TEMP 97.1
== END 2018-03-15 14:42 | disposition home or self-care (01) ==
LOC: EC 11:22
DX: J44.1 Chronic obstructive pulmonary disease with (acute) exacerbation (principal); J45.909 Unspecified asthma, uncomplicated; I25.10 Atherosclerotic heart disease of native coronary artery without angina pectoris; K21.9 Gastro-esophageal reflux disease without esophagitis; E78.5 Hyperlipidemia, unspecified; I10 Essential (primary) hypertension; M19.90 Unspecified osteoarthritis, unspecified site; H40.9 Unspecified glaucoma; Z86.14 Personal history of Methicillin resistant Staphylococcus aureus infection; Z79.891 Long term (current) use of opiate analgesic; Z79.899 Other long term (current) drug therapy; Z95.0 Presence of cardiac pacemaker; Z95.818 Presence of other cardiac implants and grafts; Z96.653 Presence of artificial knee joint, bilateral; Z96.642 Presence of left artificial hip joint; Z53.8 Procedure and treatment not carried out for other reasons
CPT/HCPCS: 36415; 71046; 80053; 82550; 82553; 83880; 84484; 85025; 85610; 85730; 93005; 94640; 99285

== ENCOUNTER 2019-10-23 11:26 | Inpatient (IN) | payer MEDICARE, BC, OTHER ==
[2019-10-23] MEDS ORDERED: KETOROLAC 30 MG/ML 1 ML VIAL IVP STA (11:46)
[2019-10-23] MEDS ORDERED: SODIUM CHLORIDE 0.9% 1,000 ML IV STA (11:46)
[2019-10-23] MEDS ORDERED: ORPHENADRINE 30 MG/ML 2 ML VIAL IVP STA (11:47)
[2019-10-23] MEDS ORDERED: MORPHINE SULFATE 2 MG/ML SYRINGE IVP ONE (11:48)
--- NOTE | 2019-10-23 11:51 | ED ---
Extremity Problem HPI - General Chief complaint: Extremity Problem,Nontraumatic Stated complaint: Bilateral leg pain Time Seen by Provider: 10/23/19 11:28 Source: patient, EMS, RN notes reviewed, old records reviewed Mode of arrival: EMS Limitations: no limitations - History of Present Illness Initial comments: This is a 89-year-old male present emergency department today via EMS with complaints of bilateral hip and lower extremity pain upon awakening today and last night. Patient was in too much pain and I'm unable to get out of bed today. Patient reportedly has taken some Tylenol an hour prior to arrival. Patient's called EMS. Patient denies any abdominal pain or significant change in urination, he reports he does have a hard time urinating, but that is common. He denies any fall. Patient states that he has history of arthritis in his shoulders. Patient denies any changes in stool. - Related Data Home Medications Medication Instructions Recorded Confirmed Montelukast [Singulair] 10 mg PO HS 09/25/14 10/23/19 Simvastatin [Zocor] 20 mg PO HS 09/25/14 10/23/19 Sotalol [Betapace] 80 mg PO BID 09/25/14 10/23/19 Multivitamins, Thera [Multivitamin 1 tab PO QAM 08/14/16 10/23/19 (formulary)] Cetirizine HCl [Zyrtec] 10 mg PO QAM 10/27/16 10/23/19 Tamsulosin [Flomax] 0.4 mg PO W/SUPPER 03/15/18 10/23/19 Albuterol Sulfate [Proair Hfa] 2 puff INHALATION RT-Q6H PRN 10/23/19 10/23/19 Biotin 5 mg PO DAILY 10/23/19 10/23/19 Calcium Carbonate [Calcium] 300 mg PO DAILY 10/23/19 10/23/19 Cholecalciferol [Vitamin D3 (25 1,000 unit PO DAILY 10/23/19 10/23/19 Mcg = 1000 Iu)] Cyanocobalamin (Vitamin B-12) 5,000 mcg PO DAILY 10/23/19 10/23/19 [Vitamin B-12] Fluticasone Propionate [Flonase 2 spray EA NOSTRIL DAILY PRN 10/23/19 10/23/19 Allergy Relief] Furosemide [Lasix] 20 mg PO DAILY PRN 10/23/19 10/23/19 Potassium Chloride [Klor-Con 8] 8 meq PO DAILY PRN 10/23/19 10/23/19 Prevagen 1 tab PO DAILY 10/23/19 10/23/19 Primidone [Mysoline] 50 mg PO BID 10/23/19 10/23/19 Vit C/E/Zn/Coppr/Lutein/Zeaxan 1 cap PO BID 10/23/19 10/23/19 [Preservision Areds 2 Softgel] cycloSPORINE 0.05% OPHTH SOLN 2 drop BOTH EYES BID 10/23/19 10/23/19 [Restasis] traMADol HCL [Ultram] 50 mg PO HS 10/23/19 10/23/19 Previous Rx's Medication Instructions Recorded Apixaban [Eliquis] 5 mg PO BID #60 tab 10/29/16 Allergies Allergy/AdvReac Type Severity Reaction Status Date / Time No Known Allergies Allergy Verified 10/23/19 12:58 Review of Systems ROS Statement: Those systems with pertinent positive or pertinent negative responses have been documented in the HPI. ROS Other: All systems not noted in ROS Statement are negative. Past Medical History Past Medical History: Asthma, Coronary Artery Disease (CAD), GERD/Reflux, Hyperlipidemia, Hypertension, Osteoarthritis (OA), Syncope Additional Past Medical History / Comment(s): PAST AA FIBPacemaker insertion, SYNCOPE /RENAL FALIURE -RESOLVED, GLAUCOMA, CATARACTS(HAD SX - IMPLANTS), ARTHRITIS KNEES,HIPS, LT SHOULDER, BACK PAIN> History of Any Multi-Drug Resistant Organisms: MRSA Date of last positivie culture/infection: 08/06/16 MDRO Source:: Right Axilla Past Surgical History: Appendectomy, Heart Catheterization, Pacemaker, Tonsillectomy Additional Past Surgical History / Comment(s): BILATERAL KNEE REPLACED, LEFT HIP REPLACED, JAN CATARACT-LENS IMPLANTS,I&D RT AXILLA(MRSA), RT EYE SX FOR GLAUCOMA Past Anesthesia/Blood Transfusion Reactions: No Reported Reaction Type of Cardiac Device: Unknown Device Placement Date:: unknown Past Psychological History: No Psychological Hx Reported Smoking Status: Never smoker Past Alcohol Use History: None Reported Past Drug Use History: None Reported - Past Family History Mother Family Medical History: Dementia Father Family Medical History: No Reported History General Exam - General Exam Comments Initial Comments: 89-year-old male. Alert and oriented to self and place. Patient is weak, unable to sit up without yelling in pain. Limitations: no limitations General appearance: alert, in no apparent distress Head exam: Present: atraumatic, normocephalic, normal inspection Eye exam: Present: normal appearance, PERRL, EOMI. Absent: scleral icterus, conjunctival injection, periorbital swelling ENT exam: Present: normal exam, mucous membranes moist Neck exam: Present: normal inspection. Absent: tenderness, meningismus, lympha denopathy Respiratory exam: Present: normal lung sounds bilaterally. Absent: respiratory distress, wheezes, rales, rhonchi, stridor Cardiovascular Exam: Present: regular rate, normal rhythm, normal heart sounds. Absent: systolic murmur, diastolic murmur, rubs, gallop, clicks GI/Abdominal exam: Present: soft, normal bowel sounds. Absent: distended, tenderness, guarding, rebound, rigid Extremities exam: Present: normal inspection, full ROM, normal capillary refill, other (normal pulses in BLE, no swelling bilaterally. Pain with hip ROM bilaterally. ). Absent: tenderness, pedal edema, joint swelling, calf tenderness Back exam: Present: normal inspection, tenderness (bilateral flanks and with movement), paraspinal tenderness Neurological exam: Present: alert, oriented X3, CN II-XII intact Psychiatric exam: Present: normal affect, normal mood Skin exam: Present: warm, dry, intact, normal color. Absent: rash Course Vital Signs 10/23/19 10/23/19 10/23/19 11:30 12:07 13:27 Temperature 98.6 F Pulse Rate 72 73 68 Respiratory 20 23 20 Rate Blood Pressure 130/87 130/87 125/74 O2 Sat by Pulse 96 96 100 Oximetry 10/23/19 14:11 Temperature 98.1 F Pulse Rate 75 Respiratory 20 Rate Blood Pressure 125/74 O2 Sat by Pulse 98 Oximetry - Reevaluation(s) Reevaluation #1: 10/23/19 12:26 After Patient was receiving Norflex Patient reportedly is hallucinating by nursing staff. Talking to his is not in the room. Medical Decision Making - Medical Decision Making Patient is an 89-year-old male presents for times a day with back and hip pain unable to get out of bed today. Patient had pain with slight movement initially seemed most of skeletal pain. However with onset blood work was obtained. He did have significant leukocytosis. Vital signs have been stable. Patient's was given Norflex and Toradol. After he received Norflex he did have some bouts of hallucinating, seeing people and talking to people not in the room. This did dissipate. Due to the hallucinations and symptoms CT of the brain was completed and this was negative for any acute intracranial process at that time. Lumbar spine x-ray shows degenerative changes and pelvis x-ray shows the prosthesis in the left hip and degenerative changes within the right hip. I informed Patient that his urinalysis is positive for infection and urine culture and blood culture will be completed. At this time Patient started on 2 g of Rocephin. I do believe the back pain is more likely related to pyelonephritis. Patient will be admitted at this time. - Lab Data Result diagrams: 10/23/19 11:40 10/23/19 11:40 Lab Results 10/23/19 10/23/19 10/23/19 Range/Units 11:40 11:40 11:40 WBC 19.1 H (3.8-10.6) k/uL RBC 3.69 L (4.30-5.90) m/uL Hgb 13.0 (13.0-17.5) gm/dL Hct 38.5 L (39.0-53.0) % MCV 104.4 H (80.0-100.0) fL MCH 35.3 H (25.0-35.0) pg MCHC 33.8 (31.0-37.0) g/dL RDW 12.7 (11.5-15.5) % Plt Count 216 (150-450) k/uL Neutrophils % 86 % Lymphocytes % 7 % Monocytes % 5 % Eosinophils % 1 % Basophils % 0 % Neutrophils # 16.4 H (1.3-7.7) k/uL Lymphocytes # 1.3 (1.0-4.8) k/uL Monocytes # 1.0 (0-1.0) k/uL Eosinophils # 0.2 (0-0.7) k/uL Basophils # 0.0 (0-0.2) k/uL Macrocytosis Slight Sodium 135 L (137-145) mmol/L Potassium 4.1 (3.5-5.1) mmol/L Chloride 105 (98-107) mmol/L Carbon Dioxide 25 (22-30) mmol/L Anion Gap 5 mmol/L BUN 17 (9-20) mg/dL Creatinine 0.70 (0.66-1.25) mg/dL Est GFR (CKD-EPI)AfAm >90 (>60 ml/min/1.73 sqM) Est GFR (CKD-EPI)NonAf 85 (>60 ml/min/1.73 sqM) Glucose 111 H (74-99) mg/dL Plasma Lactic Acid Bonifacio (0.7-2.0) mmol/L Calcium 9.1 (8.4-10.2) mg/dL Magnesium 1.6 (1.6-2.3) mg/dL Total Bilirubin 0.7 (0.2-1.3) mg/dL AST 20 (17-59) U/L ALT 8 (4-49) U/L Alkaline Phosphatase 46 (38-126) U/L Creatine Kinase 27 L (55-170) U/L Total Protein 6.3 (6.3-8.2) g/dL Albumin 3.3 L (3.5-5.0) g/dL Urine Color Urine Appearance (Clear) Urine pH (5.0-8.0) Ur Specific [place] (1.001-1.035) Urine Protein (Negative) Urine Glucose (UA) (Negative) Urine Ketones (Negative) Urine Blood (Negative) Urine Nitrite (Negative) Urine Bilirubin (Negative) Urine Urobilinogen (<2.0) mg/dL Ur Leukocyte Esterase (Negative) Urine RBC (0-5) /hpf Urine WBC (0-5) /hpf Urine WBC Clumps (None) /hpf Ur Squamous Epith Cells (0-4) /hpf Urine Bacteria (None) /hpf Urine Mucus (None) /hpf Urine Yeast (Budding) (None) /hpf 10/23/19 10/23/19 Range/Units 12:30 14:00 WBC (3.8-10.6) k/uL RBC (4.30-5.90) m/uL Hgb (13.0-17.5) gm/dL Hct (39.0-53.0) % MCV (80.0-100.0) fL MCH (25.0-35.0) pg MCHC (31.0-37.0) g/dL RDW (11.5-15.5) % Plt Count (150-450) k/uL Neutrophils % % Lymphocytes % % Monocytes % % Eosinophils % % Basophils % % Neutrophils # (1.3-7.7) k/uL Lymphocytes # (1.0-4.8) k/uL Monocytes # (0-1.0) k/uL Eosinophils # (0-0.7) k/uL Basophils # (0-0.2) k/uL Macrocytosis Sodium (137-145) mmol/L Potassium (3.5-5.1) mmol/L Chloride (98-107) mmol/L Carbon Dioxide (22-30) mmol/L Anion Gap mmol/L BUN (9-20) mg/dL Creatinine (0.66-1.25) mg/dL Est GFR (CKD-EPI)AfAm (>60 ml/min/1.73 sqM) Est GFR (CKD-EPI)NonAf (>60 ml/min/1.73 sqM) Glucose (74-99) mg/dL Plasma Lactic Acid Bon[place] 1.0 (0.7-2.0) mmol/L Calcium (8.4-10.2) mg/dL Magnesium (1.6-2.3) mg/dL Total Bilirubin (0.2-1.3) mg/dL AST (17-59) U/L ALT (4-49) U/L Alkaline Phosphatase (38-126) U/L Creatine Kinase (55-170) U/L Total Protein (6.3-8.2) g/dL Albumin (3.5-5.0) g/dL Urine Color Yellow Urine Appearance Cloudy (Clear) Urine pH 5.5 (5.0-8.0) Ur Specific [place] 1.022 (1.001-1.035) Urine Protein 1+ H (Negative) Urine Glucose (UA) Negative (Negative) Urine Ketones 2+ H (Negative) Urine Blood Moderate H (Negative) Urine Nitrite Negative (Negative) Urine Bilirubin Negative (Negative) Urine Urobilinogen <2.0 (<2.0) mg/dL Ur Leukocyte Esterase Large H (Negative) Urine RBC 58 H (0-5) /hpf Urine WBC >182 H (0-5) /hpf Urine WBC Clumps Few H (None) /hpf Ur Squamous Epith Cells <1 (0-4) /hpf Urine Bacteria Rare H (None) /hpf Urine Mucus Rare H (None) /hpf Urine Yeast (Budding) Occasional H (None) /hpf 10/23/19 14:30 EKG performed at 1422 shows sinus rhythm with first-degree AV block. Ventricular rate is 78 beats were minute. Most to 3 ms. QS duration 74 ms. QT QTc is 392/446 ms. - Radiology Data Radiology results: report reviewed X-ray of the lumbar spine shows degenerative disc changes. Pelvis x-ray shows advanced degenerative changes in the right hip. There is prosthesis within the left hip. Chest x-ray shows no acute pulmonary process. CT of the brain shows atrophy with mild periventricular white matter ischemic changes. Findings are stable from 2017. Left sphenoid sinusitis may be present. Disposition Clinical Impression: Generalized weakness, Sepsis, UTI (urinary tract infection), Back pain Disposition: ADMITTED IP TO THIS HOSP Condition: Stable Is patient prescribed a controlled substance at d/c from ED?: No Referrals: Javier Zuniga MD [Primary Care Provider] - 1-2 days Time of Disposition: 15:30
[2019-10-23 12:03] LABS: Basophils % (A) 0 %; Eosinophils # (A) 0.2 k/uL (0-0.7); Eosinophils % (A) 1 %; HCT 38.5 % (39.0-53.0); Lymphocytes # (A) 1.3 k/uL (1.0-4.8); Lymphocytes % (A) 7 %; MCH 35.3 pg (25.0-35.0); MCHC 33.8 g/dL (31.0-37.0); MCV 104.4 fL (80.0-100.0); Macrocytosis Slight; Monocytes % (A) 5 %; Neutrophils # (A) 16.4 k/uL (1.3-7.7); Neutrophils % (A) 86 %; Platelet Count 216 k/uL (150-450); RBC 3.69 m/uL (4.30-5.90); RDW 12.7 % (11.5-15.5); WBC 19.1 k/uL (3.8-10.6)
[2019-10-23 12:06] LABS: ALT 8 U/L (4-49); AST 20 U/L (17-59); African American GFR (CKD) >90 (>60 ml/min/1.73 sqM); Albumin 3.3 g/dL (3.5-5.0); Alkaline Phosphatase 46 U/L (38-126); Anion Gap 5 mmol/L; Blood Urea Nitrogen 17 mg/dL (9-20); Calcium 9.1 mg/dL (8.4-10.2); Carbon Dioxide 25 mmol/L (22-30); Chloride 105 mmol/L (98-107); Glucose 111 mg/dL (74-99); Magnesium 1.6 mg/dL (1.6-2.3); Non-African American GFR(CKD) 85 (>60 ml/min/1.73 sqM); Potassium 4.1 mmol/L (3.5-5.1); Sodium 135 mmol/L (137-145); Total Bilirubin 0.7 mg/dL (0.2-1.3); Total Protein 6.3 g/dL (6.3-8.2)
--- NOTE | 2019-10-23 12:58 | CT ---
EXAMINATION TYPE: CT brain wo con DATE OF EXAM: 10/23/2019 COMPARISON: 08/14/2016 INDICATION: Hallucinations DLP: 1099.4 mGycm, Automated exposure control for dose reduction was used. CONTRAST: None CT of the brain is performed utilizing 3 mm thick sections through the posterior fossa and 3 mm thick sections through the remaining calvarium. Study is performed within 24 hours of arrival to the hosp [facility]. No abnormal hyperdensity is present to suggest an acute intracranial hemorrhage. No mass lesion is evident. No acute infarcts are evident. Periventricular white matter hypodensities are present most likely on the basis of chronic white matter ischemic changes. Ventricles and sulci are appropriate for the patient age. Minimal air-fluid level may be within the left sphenoid sinus. Remaining paranasal sinuses mastoid ai r cells included within the [id number] are clear. IMPRESSIONS: 1. Atrophy with mild periventricular white matter ischemic changes. Findings appear stable from 201 7. 2. Left sphenoid sinusitis may be present.
--- NOTE | 2019-10-23 13:22 | XR ---
EXAMINATION TYPE: XR chest 2V DATE OF EXAM: 10/23/2019 COMPARISON: 03/15/2018 INDICATION: Pain TECHNIQUE: Frontal and lateral views of the chest are obtained. FINDINGS: The heart size is normal. The pulmonary vasculature is normal. The lungs are clear. Pacemaker overlies left chest. Advanced degenerative changes are at the bilateral shoulders. IMPRESSION: 1. No acute pulmonary process.
--- NOTE | 2019-10-23 13:23 | XR ---
EXAMINATION TYPE: XR pelvis AP view DATE OF EXAM: 10/23/2019 COMPARISON: None HISTORY: Bilateral hip pain TECHNIQUE: AP pelvis FINDINGS: There is a left hip prosthesis present previously. There is loss of the right hip joint spa ce. Femoral head appears preserved articulates with the acetabulum. Sacroiliac joints and symphysis p ubis are normal. Bowel gas is present. IMPRESSION: 1. Advanced degenerative change right hip. 2. Prosthesis within the left hip.
--- NOTE | 2019-10-23 13:24 | XR ---
EXAMINATION TYPE: XR lumbar spine 2 or 3V DATE OF EXAM: 10/23/2019 COMPARISON: None HISTORY: Low back pain TECHNIQUE: Three-view lumbar spine FINDINGS: There 5 lumbar-type vertebral bodies. The pedicles are intact. Vertebral body heights are p reserved. Spondylosis is present. Disc space narrowing is evident L2-3 through L5-S1. Posterior disc space narrowing may be present L1-2. IMPRESSION: 1. Degenerative disc changes lumbar spine
[2019-10-23] MEDS ORDERED: LIDOCAINE URO-JET JELLY 2% 5 ML KIT URETHRAL ONE (14:09)
[2019-10-23] MEDS: SODIUM CHLORIDE 0.9% 1,000 ML IV SCH ×2 (14:09→23:34)
[2019-10-23 14:40] LABS: Appearance,Urine Cloudy (Clear); Bacteria,Urine Rare /hpf; Bilirubin,Urine Negative (Negative); Blood,Urine Moderate (Negative); Budding Yeast,Urine Occasional /hpf; Color,Urine Yellow; Glucose,Urine (UA) Negative (Negative); Ketones,Urine 2+ (Negative); Leukocyte Esterase,Urine Large (Negative); Mucus,Urine Rare /hpf; Nitrite,Urine Negative (Negative); PH, Urine 5.5 (5.0-8.0); Protein,Urine 1+ (Negative); RBC,Urine 58 /hpf (0-5); Specific Gravity,Urine 1.022 (1.001-1.035); Squamous Epithelial Cell,Urine <1 /hpf (0-4); Urobilinogen,Urine <2.0 mg/dL (<2.0); WBC,Urine >182 /hpf (0-5)
[2019-10-23] MEDS ORDERED: IBUPROFEN 400 MG TAB PO PRN (15:32)
[2019-10-23] MEDS ORDERED: NALOXONE 0.4 MG/ML 1 ML VIAL IV PRN (15:32)
[2019-10-23] MEDS ORDERED: KETOROLAC 30 MG/ML 1 ML VIAL IVP PRN (15:32)
[2019-10-23] MEDS ORDERED: POTASSIUM CHLORIDE 8 MEQ PO PRN (16:11)
[2019-10-23] MEDS ORDERED: FUROSEMIDE 20 MG TAB PO PRN (16:11)
[2019-10-23] MEDS ORDERED: ACETAMINOPHEN TAB 500 MG TAB PO STA (16:12)
[2019-10-23] MEDS ORDERED: IBUPROFEN 600 MG TAB PO STA (16:12)
--- NOTE | 2019-10-23 16:18 | P.HPIM ---
History of Present Illness H&P Date: 10/23/19 This is a 89-year-old male complex past medical history noted below who presented to the emergency room by EMS with complaint of bilateral hip pain and bilateral shoulder pain. Patient is a very poor historian and is telling me that his pain is chronic and is being going on for several month that for the past couple of days his pain is been worse and now he is unable to move his arms secondary to shoulder pain. He denies any fall or trauma. He has a history of total hip arthroplasty in the past. He was evaluated in the ER was found to have evidence of sepsis with underlying UTI. He denies any dysuria or urinary frequency. He described his urine as dribbling. He denies fevers or chills. No other complaints otherwise. Review of Systems Review of system: 14 points review of systems were obtained and were negative except to what were mentioned in the HPI. Past Medical History Past Medical History: Asthma, Coronary Artery Disease (CAD), GERD/Reflux, Hyperlipidemia, Hypertension, Osteoarthritis (OA), Syncope Additional Past Medical History / Comment(s): PAST AA FIBPacemaker insertion, SYNCOPE /RENAL FALIURE -RESOLVED, GLAUCOMA, CATARACTS(HAD SX - IMPLANTS), ARTHRITIS KNEES,HIPS, LT SHOULDER, BACK PAIN> History of Any Multi-Drug Resistant Organisms: MRSA Date of last positivie culture/infection: 08/06/16 MDRO Source:: Right Axilla Past Surgical History: Appendectomy, Heart Catheterization, Pacemaker, Tonsillectomy Additional Past Surgical History / Comment(s): BILATERAL KNEE REPLACED, LEFT HIP REPLACED, JAN CATARACT-LENS IMPLANTS,I&D RT AXILLA(MRSA), RT EYE SX FOR GLAUCOMA Past Anesthesia/Blood Transfusion Reactions: No Reported Reaction Type of Cardiac Device: Unknown Device Placement Date:: unknown Past Psychological History: No Psychological Hx Reported Smoking Status: Never smoker Past Alcohol Use History: None Reported Past Drug Use History: None Reported - Past Family History Mother Family Medical History: Dementia Father Family Medical History: No Reported History Medications and Allergies Home Medications Medication Instructions Recorded Confirmed Type Montelukast [Singulair] 10 mg PO HS 09/25/14 10/23/19 History Simvastatin [Zocor] 20 mg PO HS 09/25/14 10/23/19 History Sotalol [Betapace] 80 mg PO BID 09/25/14 10/23/19 History Multivitamins, Thera [Multivitamin 1 tab PO QAM 08/14/16 10/23/19 History (formulary)] Cetirizine HCl [Zyrtec] 10 mg PO QAM 10/27/16 10/23/19 History Apixaban [Eliquis] 5 mg PO BID #60 tab 10/29/16 10/23/19 Rx Tamsulosin [Flomax] 0.4 mg PO W/SUPPER 03/15/18 10/23/19 History Albuterol Sulfate [Proair Hfa] 2 puff INHALATION RT-Q6H PRN 10/23/19 10/23/19 History Biotin 5 mg PO DAILY 10/23/19 10/23/19 History Calcium Carbonate [Calcium] 300 mg PO DAILY 10/23/19 10/23/19 History Cholecalciferol [Vitamin D3 (25 1,000 unit PO DAILY 10/23/19 10/23/19 History Mcg = 1000 Iu)] Cyanocobalamin (Vitamin B-12) 5,000 mcg PO DAILY 10/23/19 10/23/19 History [Vitamin B-12] Fluticasone Propionate [Flonase 2 spray EA NOSTRIL DAILY PRN 10/23/19 10/23/19 History Allergy Relief] Furosemide [Lasix] 20 mg PO DAILY PRN 10/23/19 10/23/19 History Potassium Chloride [Klor-Con 8] 8 meq PO DAILY PRN 10/23/19 10/23/19 History Prevagen 1 tab PO DAILY 10/23/19 10/23/19 History Primidone [Mysoline] 50 mg PO BID 10/23/19 10/23/19 History Vit C/E/Zn/Coppr/Lutein/Zeaxan 1 cap PO BID 10/23/19 10/23/19 History [Preservision Areds 2 Softgel] cycloSPORINE 0.05% OPHTH SOLN 2 drop BOTH EYES BID 10/23/19 10/23/19 History [Restasis] traMADol HCL [Ultram] 50 mg PO HS 10/23/19 10/23/19 History Allergies Allergy/AdvReac Type Severity Reaction Status Date / Time No Known Allergies Allergy Verified 10/23/19 12:58 Physical Exam Vitals: Vital Signs Temp Pulse Resp BP Pulse Ox 10/23/19 16:07 102.9 F H 82 20 125/74 96 10/23/19 14:11 98.1 F 75 20 125/74 98 10/23/19 13:27 68 20 125/74 100 10/23/19 12:07 73 23 130/87 96 10/23/19 11:30 98.6 F 72 20 130/87 96 Intake and Output 10/23/19 10/23/19 10/23/19 06:59 14:59 22:59 Output Total 5 Balance -5 Output: Urine 5 Straight 5 Other: Weight 86.183 kg General: The patient is awake and alert, in no distress Eye: there is normal conjunctiva bilaterally. Neck: The neck is supple, there is no JVD. Cardiovascular: Normal S1-S2, no S3-S4, no murmurs. Respiratory: Lungs clear to auscultation bilaterally Gastrointestinal: Abdomen is soft, nontender Musculoskeletal: There is no pedal edema. Neurological:. Speech is normal. Skin: Skin is warm and dry Results CBC & Chem 7: 10/23/19 11:40 10/23/19 11:40 Labs: Abnormal Lab Results - Last 24 Hours (Table) 10/23/19 10/23/19 10/23/19 Range/Units 11:40 11:40 11:40 WBC 19.1 H (3.8-10.6) k/uL RBC 3.69 L (4.30-5.90) m/uL Hct 38.5 L (39.0-53.0) % MCV 104.4 H (80.0-100.0) fL MCH 35.3 H (25.0-35.0) pg Neutrophils # 16.4 H (1.3-7.7) k/uL Sodium 135 L (137-145) mmol/L Glucose 111 H (74-99) mg/dL Creatine Kinase 27 L (55-170) U/L Albumin 3.3 L (3.5-5.0) g/dL Urine Protein (Negative) Urine Ketones (Negative) Urine Blood (Negative) Ur Leukocyte Esterase (Negative) Urine RBC (0-5) /hpf Urine WBC (0-5) /hpf Urine WBC Clumps (None) /hpf Urine Bacteria (None) /hpf Urine Mucus (None) /hpf Urine Yeast (Budding) (None) /hpf 10/23/19 Range/Units 14:00 WBC (3.8-10.6) k/uL RBC (4.30-5.90) m/uL Hct (39.0-53.0) % MCV (80.0-100.0) fL MCH (25.0-35.0) pg Neutrophils # (1.3-7.7) k/uL Sodium (137-145) mmol/L Glucose (74-99) mg/dL Creatine Kinase (55-170) U/L Albumin (3.5-5.0) g/dL Urine Protein 1+ H (Negative) Urine Ketones 2+ H (Negative) Urine Blood Moderate H (Negative) Ur Leukocyte Esterase Large H (Negative) Urine RBC 58 H (0-5) /hpf Urine WBC >182 H (0-5) /hpf Urine WBC Clumps Few H (None) /hpf Urine Bacteria Rare H (None) /hpf Urine Mucus Rare H (None) /hpf Urine Yeast (Budding) Occasional H (None) /hpf Assessment and Plan Assessment: 1. UTI: Started on IV ceftriaxone. Awaiting urine culture. I would check bladder scan for postvoid residual 2. Sepsis without septic shock, lactic acid is normal. Continue IV fluid with normal saline at the 100 mL per hour. Awaiting blood culture. 3. Bilateral shoulder and hip pain, most likely secondary to chronic arthritis. Patient said that he is able to walk with a walker usually but currently unable to move without having severe hip pain. X-ray in the emergency room sh owed no acute findings. I will consult orthopedic surgery further evaluation. 4. Chronic atrial fibrillation on anticoagulation with Eliquis 5. Underlying coronary artery disease: Continue medical management 6. History of hypertension and hyperlipidemia 7. CODE STATUS: Patient is full code. Discussed with him in the ER. 8. Physical debility, consult PT/OT
[2019-10-23] MEDS ORDERED: LORazepam 2 MG/ML INJ IV STA (16:21)
[2019-10-23] MEDS ORDERED: THIAMINE 100 MG/ML 2 ML VIAL IM STA (16:22)
[2019-10-23] MEDS ORDERED: LORazepam 2 MG/ML INJ IV PRN ×3 (16:22)
--- NOTE | 2019-10-23 16:27 | ED ---
Medical Decision Making - Medical Decision Making Patient's visiting nurse contacted the facility and does report the Patient does drink alcohol daily. Apparently he is a heavy drinker of gin. His last drink was likely on Tuesday according to the visiting nurse. This does explain the concern for some hallucinations and tremor. This also could be secondary to his urinary tract infection. However Patient will be started on Ativan CIWA protocol as well. Patient case discussed with Dr. Gloria. - Lab Data Result diagrams: 10/23/19 11:40 10/23/19 11:40 Lab Results 10/23/19 10/23/19 10/23/19 Range/Units 11:40 11:40 11:40 WBC 19.1 H (3.8-10.6) k/uL RBC 3.69 L (4.30-5.90) m/uL Hgb 13.0 (13.0-17.5) gm/dL Hct 38.5 L (39.0-53.0) % MCV 104.4 H (80.0-100.0) fL MCH 35.3 H (25.0-35.0) pg MCHC 33.8 (31.0-37.0) g/dL RDW 12.7 (11.5-15.5) % Plt Count 216 (150-450) k/uL Neutrophils % 86 % Lymphocytes % 7 % Monocytes % 5 % Eosinophils % 1 % Basophils % 0 % Neutrophils # 16.4 H (1.3-7.7) k/uL Lymphocytes # 1.3 (1.0-4.8) k/uL Monocytes # 1.0 (0-1.0) k/uL Eosinophils # 0.2 (0-0.7) k/uL Basophils # 0.0 (0-0.2) k/uL Macrocytosis Slight Sodium 135 L (137-145) mmol/L Potassium 4.1 (3.5-5.1) mmol/L Chloride 105 (98-107) mmol/L Carbon Dioxide 25 (22-30) mmol/L Anion Gap 5 mmol/L BUN 17 (9-20) mg/dL Creatinine 0.70 (0.66-1.25) mg/dL Est GFR (CKD-EPI)AfAm >90 (>60 ml/min/1.73 sqM) Est GFR (CKD-EPI)NonAf 85 (>60 ml/min/1.73 sqM) Glucose 111 H (74-99) mg/dL Plasma Lactic Acid Bonifacio (0.7-2.0) mmol/L Calcium 9.1 (8.4-10.2) mg/dL Magnesium 1.6 (1.6-2.3) mg/dL Total Bilirubin 0.7 (0.2-1.3) mg/dL AST 20 (17-59) U/L ALT 8 (4-49) U/L Alkaline Phosphatase 46 (38-126) U/L Creatine Kinase 27 L (55-170) U/L Total Protein 6.3 (6.3-8.2) g/dL Albumin 3.3 L (3.5-5.0) g/dL Urine Color Urine Appearance (Clear) Urine pH (5.0-8.0) Ur Specific Neligh (1.001-1.035) Urine Protein (Negative) Urine Glucose (UA) (Negative) Urine Ketones (Negative) Urine Blood (Negative) Urine Nitrite (Negative) Urine Bilirubin (Negative) Urine Urobilinogen (<2.0) mg/dL Ur Leukocyte Esterase (Negative) Urine RBC (0-5) /hpf Urine WBC (0-5) /hpf Urine WBC Clumps (None) /hpf Ur Squamous Epith Cells (0-4) /hpf Urine Bacteria (None) /hpf Urine Mucus (None) /hpf Urine Yeast (Budding) (None) /hpf 10/23/19 10/23/19 Range/Units 12:30 14:00 WBC (3.8-10.6) k/uL RBC (4.30-5.90) m/uL Hgb (13.0-17.5) gm/dL Hct (39.0-53.0) % MCV (80.0-100.0) fL MCH (25.0-35.0) pg MCHC (31.0-37.0) g/dL RDW (11.5-15.5) % Plt Count (150-450) k/uL Neutrophils % % Lymphocytes % % Monocytes % % Eosinophils % % Basophils % % Neutrophils # (1.3-7.7) k/uL Lymphocytes # (1.0-4.8) k/uL Monocytes # (0-1.0) k/uL Eosinophils # (0-0.7) k/uL Basophils # (0-0.2) k/uL Macrocytosis Sodium (137-145) mmol/L Potassium (3.5-5.1) mmol/L Chloride (98-107) mmol/L Carbon Dioxide (22-30) mmol/L Anion Gap mmol/L BUN (9-20) mg/dL Creatinine (0.66-1.25) mg/dL Est GFR (CKD-EPI)AfAm (>60 ml/min/1.73 sqM) Est GFR (CKD-EPI)NonAf (>60 ml/min/1.73 sqM) Glucose (74-99) mg/dL Plasma Lactic Acid Bonifacio 1.0 (0.7-2.0) mmol/L Calcium (8.4-10.2) mg/dL Magnesium (1.6-2.3) mg/dL Total Bilirubin (0.2-1.3) mg/dL AST (17-59) U/L ALT (4-49) U/L Alkaline Phosphatase (38-126) U/L Creatine Kinase (55-170) U/L Total Protein (6.3-8.2) g/dL Albumin (3.5-5.0) g/dL Urine Color Yellow Urine Appearance Cloudy (Clear) Urine pH 5.5 (5.0-8.0) Ur Specific Neligh 1.022 (1.001-1.035) Urine Protein 1+ H (Negative) Urine Glucose (UA) Negative (Negative) Urine Ketones 2+ H (Negative) Urine Blood Moderate H (Negative) Urine Nitrite Negative (Negative) Urine Bilirubin Negative (Negative) Urine Urobilinogen <2.0 (<2.0) mg/dL Ur Leukocyte Esterase Large H (Negative) Urine RBC 58 H (0-5) /hpf Urine WBC >182 H (0-5) /hpf Urine WBC Clumps Few H (None) /hpf Ur Squamous Epith Cells <1 (0-4) /hpf Urine Bacteria Rare H (None) /hpf Urine Mucus Rare H (None) /hpf Urine Yeast (Budding) Occasional H (None) /hpf Disposition Clinical Impression: Generalized weakness, Sepsis, UTI (urinary tract infection), Back pain Disposition: ADMITTED IP TO THIS HOSP Condition: Stable
[2019-10-23] MEDS ORDERED: DIAZEPAM 2 MG TAB PO STA (16:30)
--- NOTE | 2019-10-23 17:34 | XR ---
EXAMINATION TYPE: XR Hip Bilateral Complete DATE OF EXAM: 10/23/2019 COMPARISON: None HISTORY: Hip pain TECHNIQUE: 2 view right hip, 2 view left hip FINDINGS: There is loss of the joint space. Cam deformity of the right hip is evident. No acute fract ures or dislocations are evident. Vascular calcification is present. There is a left hip prosthesis with acetabular component. No fractures are evident. IMPRESSION: 1. Moderate degenerative changes right hip. 2. Left hip prosthesis
[2019-10-23] MEDS: ATORVASTATIN 10 MG TAB PO SCH (19:51)
[2019-10-23] MEDS: MONTELUKAST 10 MG TAB PO SCH (19:51)
[2019-10-23] MEDS: APIXABAN 5 MG TAB PO SCH (19:51)
[2019-10-23] MEDS: ACETAMINOPHEN TAB 325 MG TAB PO PRN (19:51)
[2019-10-23] MEDS: TAMSULOSIN 0.4 MG CAP.ER.24H PO SCH (19:51)
[2019-10-23] MEDS: cycloSPORINE 0.05% OPHTH 0.4 ML DROPERETTE BOTH EYES SCH (19:52)
[2019-10-23] MEDS: PRIMIDONE 50 MG TAB PO SCH (19:52)
[2019-10-23] MEDS: SOTALOL 80 MG TAB PO SCH (19:52)
[2019-10-23] MEDS: THIAMINE 100 MG TAB PO SCH (19:54)
[2019-10-24 07:06] LABS: Basophils % (A) 0 %; Eosinophils # (A) 0.1 k/uL (0-0.7); Eosinophils % (A) 0 %; HCT 34.4 % (39.0-53.0); HGB 11.5 gm/dL (13.0-17.5); Lymphocytes % (A) 5 %; MCH 35.5 pg (25.0-35.0); MCHC 33.4 g/dL (31.0-37.0); MCV 106.5 fL (80.0-100.0); Macrocytosis Moderate; Mean Platelet Volume 8.4; Monocytes # (A) 0.9 k/uL (0-1.0); Monocytes % (A) 4 %; Neutrophils # (A) 20.2 k/uL (1.3-7.7); Neutrophils % (A) 90 %; Platelet Count 179 k/uL (150-450); RBC 3.23 m/uL (4.30-5.90); WBC 22.4 k/uL (3.8-10.6)
[2019-10-24 07:27] LABS: African American GFR (CKD) >90 (>60 ml/min/1.73 sqM); Anion Gap 6 mmol/L; Blood Urea Nitrogen 17 mg/dL (9-20); Calcium 8.1 mg/dL (8.4-10.2); Carbon Dioxide 23 mmol/L (22-30); Chloride 108 mmol/L (98-107); Glucose 108 mg/dL (74-99); Non-African American GFR(CKD) 83 (>60 ml/min/1.73 sqM); Potassium 3.7 mmol/L (3.5-5.1); Sodium 137 mmol/L (137-145)
[2019-10-24] MEDS: SODIUM CHLORIDE 0.9% 1,000 ML IV SCH ×2 (08:54→17:11)
[2019-10-24] MEDS: THIAMINE 100 MG TAB PO SCH ×2 (08:56→17:10)
[2019-10-24] MEDS: SOTALOL 80 MG TAB PO SCH ×2 (08:56→20:54)
[2019-10-24] MEDS: APIXABAN 5 MG TAB PO SCH ×2 (08:56→20:53)
[2019-10-24] MEDS: PANTOPRAZOLE 40 MG/10 ML VIAL IV SCH (08:56)
[2019-10-24] MEDS: PRIMIDONE 50 MG TAB PO SCH ×2 (08:56→20:53)
[2019-10-24] MEDS: cycloSPORINE 0.05% OPHTH 0.4 ML DROPERETTE BOTH EYES SCH ×2 (08:57→20:53)
--- NOTE | 2019-10-24 10:05 | P.CNOR ---
History of Present Illness - [facility] Consult date: 10/24/19 Consult reason: joint pain History of present illness: Patient is an 89-year-old male who is admitted to [facility] with regards to bilateral lower extremity discomfort. He was found to have a ve ry significant UTI with likely sepsis, he was admitted to the hospital under internal medicine with our orthopedic team on consult. Patient was evaluated at bedside today, he is resting comfortably. He certainly a poor historian with regards to past events and surgery. He states that most the pain is in his right hip. He has a known history of osteoarthritis involving that. He gets occasional discomfort in his left hip also, he has a history of a total hip arthroplasty, he cannot remember the date of surgery or the surgeon. He has bilateral total knee replacements. He has a known history of osteoarthritis involving both shoulders. He seen both Dr. Trent and Dr. Lopez in the past. He denies any recent falls. He states he utilizes a walker with ambulation. Patient states he still drives. Size the right hip at this time, he has no other orthopedic complaints. Review of Systems Constitutional: Reports as per HPI Past Medical History Past Medical History: Asthma, Coronary Artery Disease (CAD), GERD/Reflux, Hyperlipidemia, Hypertension, Osteoarthritis (OA), Syncope Additional Past Medical History / Comment(s): A fib, Pacemaker insertion, SYNCOPE /RENAL FALIURE -RESOLVED, GLAUCOMA, CATARACTS(HAD SX - IMPLANTS), ARTHRITIS KNEES,HIPS, LT SHOULDER, BACK PAIN History of Any Multi-Drug Resistant Organisms: MRSA Year Discovered:: 08/06/16 MDRO Source:: Right Axilla Past Surgical History: Appendectomy, Heart Catheterization, Pacemaker, Tonsillectomy Additional Past Surgical History / Comment(s): BILATERAL KNEE REPLACED, LEFT HIP REPLACED, JAN CATARACT-LENS IMPLANTS,I&D RT AXILLA(MRSA), RT EYE SX FOR GLAUCOMA Past Anesthesia/Blood Transfusion Reactions: No Reported Reaction Type of Cardiac Device: Unknown Device Placement Date:: unknown Past Psychological History: No Psychological Hx Reported Additional Psychological History / Comment(s): LIVE WITH HIS , NO PETS. 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 LT COL. WORKED IN [employer]. Smoking Status: Never smoker Past Alcohol Use History: None Reported Additional Past Alcohol Use History / Comment(s): PT STATED HE NEVER SMOKED. DRINKS 1-2 DRINKS PER DAY, NO DRUG USE. Past Drug Use History: None Reported - Past Family History Mother Family Medical History: Dementia Father Family Medical History: No Reported History Medications and Allergies Home Medications Medication Instructions Recorded Confirmed Type Montelukast [Singulair] 10 mg PO HS 09/25/14 10/23/19 History Simvastatin [Zocor] 20 mg PO HS 09/25/14 10/23/19 History Sotalol [Betapace] 80 mg PO BID 09/25/14 10/23/19 History Multivitamins, Thera [Multivitamin 1 tab PO QAM 08/14/16 10/23/19 History (formulary)] Cetirizine HCl [Zyrtec] 10 mg PO QAM 10/27/16 10/23/19 History Apixaban [Eliquis] 5 mg PO BID #60 tab 10/29/16 10/23/19 Rx Tamsulosin [Flomax] 0.4 mg PO W/SUPPER 03/15/18 10/23/19 History Albuterol Sulfate [Proair Hfa] 2 puff INHALATION RT-Q6H PRN 10/23/19 10/23/19 History Biotin 5 mg PO DAILY 10/23/19 10/23/19 History Calcium Carbonate [Calcium] 300 mg PO DAILY 10/23/19 10/23/19 History Cholecalciferol [Vitamin D3 (25 1,000 unit PO DAILY 10/23/19 10/23/19 History Mcg = 1000 Iu)] Cyanocobalamin (Vitamin B-12) 5,000 mcg PO DAILY 10/23/19 10/23/19 History [Vitamin B-12] Fluticasone Propionate [Flonase 2 spray EA NOSTRIL DAILY PRN 10/23/19 10/23/19 History Allergy Relief] Furosemide [Lasix] 20 mg PO DAILY PRN 10/23/19 10/23/19 History Potassium Chloride [Klor-Con 8] 8 meq PO DAILY PRN 10/23/19 10/23/19 History Prevagen 1 tab PO DAILY 10/23/19 10/23/19 History Primidone [Mysoline] 50 mg PO BID 10/23/19 10/23/19 History Vit C/E/Zn/Coppr/Lutein/Zeaxan 1 cap PO BID 10/23/19 10/23/19 History [Preservision Areds 2 Softgel] cycloSPORINE 0.05% OPHTH SOLN 2 drop BOTH EYES BID 10/23/19 10/23/19 History [Restasis] traMADol HCL [Ultram] 50 mg PO HS 10/23/19 10/23/19 History Allergies Allergy/AdvReac Type Severity Reaction Status Date / Time No Known Allergies Allergy Verified 10/23/19 12:58 Physical Examination Bilateral lower extremities: No obvious open lesions or sores present, no significant areas of erythema or soft tissue swelling Healed bilateral incisions over the anterior aspect of the knees, no effusion present around the knee, there is no tenderness with palpation of bilateral knees. Logroll maneuver of the bilateral hips reproduces no significant discomfort Range of motion of the hips, he has very limited motion on the right side with internal and external rotation, this does reproduce some groin pain. Sensory exam to light touch throughout the extremities is intact. No tenderness with palpation of the bilateral Plantar flexion, dorsiflexion, EHL, FHL are intact bilaterally, dorsalis pedis pulses 2+ bilaterally Results - Labs Labs: Abnormal Lab Results - Last 24 Hours (Table) 10/23/19 10/23/19 10/23/19 Range/Units 11:40 11:40 11:40 WBC 19.1 H (3.8-10.6) k/uL RBC 3.69 L (4.30-5.90) m/uL Hgb (13.0-17.5) gm/dL Hct 38.5 L (39.0-53.0) % MCV 104.4 H (80.0-100.0) fL MCH 35.3 H (25.0-35.0) pg Neutrophils # 16.4 H (1.3-7.7) k/uL Sodium 135 L (137-145) mmol/L Chloride (98-107) mmol/L Glucose 111 H (74-99) mg/dL Calcium (8.4-10.2) mg/dL Creatine Kinase 27 L (55-170) U/L Albumin 3.3 L (3.5-5.0) g/dL Urine Protein (Negative) Urine Ketones (Negative) Urine Blood (Negative) Ur Leukocyte Esterase (Negative) Urine RBC (0-5) /hpf Urine WBC (0-5) /hpf Urine WBC Clumps (None) /hpf Urine Bacteria (None) /hpf Urine Mucus (None) /hpf Urine Yeast (Budding) (None) /hpf 10/23/19 10/24/19 10/24/19 Range/Units 14:00 06:26 06:26 WBC 22.4 H (3.8-10.6) k/uL RBC 3.23 L (4.30-5.90) m/uL Hgb 11.5 L (13.0-17.5) gm/dL Hct 34.4 L (39.0-53.0) % MCV 106.5 H (80.0-100.0) fL MCH 35.5 H (25.0-35.0) pg Neutrophils # 20.2 H (1.3-7.7) k/uL Sodium (137-145) mmol/L Chloride 108 H (98-107) mmol/L Glucose 108 H (74-99) mg/dL Calcium 8.1 L (8.4-10.2) mg/dL Creatine Kinase (55-170) U/L Albumin (3.5-5.0) g/dL Urine Protein 1+ H (Negative) Urine Ketones 2+ H (Negative) Urine Blood Moderate H (Negative) Ur Leukocyte Esterase Large H (Negative) Urine RBC 58 H (0-5) /hpf Urine WBC >182 H (0-5) /hpf Urine WBC Clumps Few H (None) /hpf Urine Bacteria Rare H (None) /hpf Urine Mucus Rare H (None) /hpf Urine Yeast (Budding) Occasional H (None) /hpf Microbiology - Last 24 Hours (Table) 10/23/19 14:00 Urine Culture - Preliminary Urine,Catheterized H & H 10/23/19 10/24/19 Range/Units 11:40 06:26 Hgb 13.0 11.5 L (13.0-17.5) gm/dL Hct 38.5 L 34.4 L (39.0-53.0) % Result Diagrams: 10/24/19 06:26 10/24/19 06:26 - Diagnostic results Hip x-ray: report reviewed, image reviewed (X-rays of bilateral hips were obtained and reviewed. Images demonstrate previous hardware on the left side, it appears stable, no acute osseous abnormalities. X-rays of the right hip demonstrate severe osteoarthritis with significant joint loss and osteophyte formation) Assessment and Plan Assessment: Right hip pain Right hip osteoarthritis Stable left total hip arthroplasty UTI with sepsis Other medical comorbidities Plan: I was able to discuss the case, including the physical exam findings and imaging studies With my attending Dr. Trent. No orthopedic surgical intervention recommended at this time Conservative management to include pain control, physical therapy evaluation and continuation of ambulation with walker Patient is a poor candidate at this time for a total hip replacement on the right side due to his active infection, could consider reevaluation in the future Other medical office secretary recommendations We'll be available for any further recommendation involving this patient Time with Patient: Less than 30
[2019-10-24] MEDS: ACETAMINOPHEN TAB 325 MG TAB PO PRN (10:55)
--- NOTE | 2019-10-24 12:49 | P.PN ---
Subjective Patient is doing better today. He is not having as much shakiness and tremor compared to yesterday. His pain is well controlled. Objective - Vital Signs Vital signs: Vital Signs Temp 98.0 F 10/24/19 11:28 Pulse 71 10/24/19 11:28 Resp 20 10/24/19 11:28 BP 99/62 10/24/19 11:28 Pulse Ox 93 L 10/24/19 11:28 Intake & Output 10/23/19 10/24/19 10/24/19 18:59 06:59 18:59 Intake Total 1290 Output Total 5 Balance -5 1290 Weight 86.183 kg Intake: Intake, IV Titration 800 Amount Sodium Chloride 0.9% 1, 800 000 ml @ 100 mls/hr IV . Q10H [facility] Rx#:[id number] Oral 490 Output: Urine 5 Straight 5 Other: # Voids 1 1 - Exam General: The patient is awake and alert, in no distress Eye: there is normal conjunctiva bilaterally. Neck: The neck is supple, there is no JVD. Cardiovascular: Normal S1-S2, no S3-S4, no murmurs. Respiratory: Lungs clear to auscultation bilaterally Gastrointestinal: Abdomen is soft, nontender Musculoskeletal: There is no pedal edema. Neurological:. Speech is normal. Skin: Skin is warm and dry - Labs CBC & Chem 7: 10/24/19 06:26 10/24/19 06:26 Labs: Abnormal Lab Results - Last 24 Hours (Table) 10/23/19 10/23/19 10/24/19 Range/Units 11:40 14:00 06:26 WBC 22.4 H (3.8-10.6) k/uL RBC 3.23 L (4.30-5.90) m/uL Hgb 11.5 L (13.0-17.5) gm/dL Hct 34.4 L (39.0-53.0) % MCV 106.5 H (80.0-100.0) fL MCH 35.5 H (25.0-35.0) pg Neutrophils # 20.2 H (1.3-7.7) k/uL Chloride (98-107) mmol/L Glucose (74-99) mg/dL Calcium (8.4-10.2) mg/dL Creatine Kinase 27 L (55-170) U/L Urine Protein 1+ H (Negative) Urine Ketones 2+ H (Negative) Urine Blood Moderate H (Negative) Ur Leukocyte Esterase Large H (Negative) Urine RBC 58 H (0-5) /hpf Urine WBC >182 H (0-5) /hpf Urine WBC Clumps Few H (None) /hpf Urine Bacteria Rare H (None) /hpf Urine Mucus Rare H (None) /hpf Urine Yeast (Budding) Occasional H (None) /hpf 10/24/19 Range/Units 06:26 WBC (3.8-10.6) k/uL RBC (4.30-5.90) m/uL Hgb (13.0-17.5) gm/dL Hct (39.0-53.0) % MCV (80.0-100.0) fL MCH (25.0-35.0) pg Neutrophils # (1.3-7.7) k/uL Chloride 108 H (98-107) mmol/L Glucose 108 H (74-99) mg/dL Calcium 8.1 L (8.4-10.2) mg/dL Creatine Kinase (55-170) U/L Urine Protein (Negative) Urine Ketones (Negative) Urine Blood (Negative) Ur Leukocyte Esterase (Negative) Urine RBC (0-5) /hpf Urine WBC (0-5) /hpf Urine WBC Clumps (None) /hpf Urine Bacteria (None) /hpf Urine Mucus (None) /hpf Urine Yeast (Budding) (None) /hpf Microbiology - Last 24 Hours (Table) 10/23/19 14:00 Urine Culture - Preliminary Urine,Catheterized Assessment and Plan Assessment: 1. UTI: Started on IV ceftriaxone. Awaiting urine culture. I would check bladder scan for postvoid residual 2. Sepsis without septic shock, lactic acid is normal. Continue IV fluid with normal saline at the 100 mL per hour. Awaiting blood culture. 3. Bilateral shoulder and hip pain, most likely secondary to chronic arthritis. X-ray in the emergency room showed no acute findings. Seen and evaluated by orthopedic. Continue pain management. No intervention at this time. 4. Chronic atrial fibrillation on anticoagulation with Eliquis 5. Underlying coronary artery disease: Continue medical management 6. History of hypertension and hyperlipidemia 7. CODE STATUS: Patient is full code. Discussed with him in the ER. 8. Physical debility, consult PT/OT 9. Alcohol abuse, patient admitted that he drinks 2 drinks of liquor daily. Advised to cut down. CIWA protocol as needed. Continue current management. Anticipate discharge within the next day or 2.
[2019-10-24] MEDS: TAMSULOSIN 0.4 MG CAP.ER.24H PO SCH (17:10)
[2019-10-24] MEDS: MONTELUKAST 10 MG TAB PO SCH (20:53)
[2019-10-24] MEDS: ATORVASTATIN 10 MG TAB PO SCH (20:53)
[2019-10-25] MEDS: ACETAMINOPHEN TAB 325 MG TAB PO PRN (05:06)
[2019-10-25 07:44] LABS: African American GFR (CKD) >90 (>60 ml/min/1.73 sqM); Anion Gap 4 mmol/L; Blood Urea Nitrogen 19 mg/dL (9-20); Calcium 7.6 mg/dL (8.4-10.2); Carbon Dioxide 24 mmol/L (22-30); Chloride 109 mmol/L (98-107); Glucose 88 mg/dL (74-99); HCT 33.5 % (39.0-53.0); HGB 10.5 gm/dL (13.0-17.5); MCH 33.7 pg (25.0-35.0); MCHC 31.3 g/dL (31.0-37.0); MCV 107.7 fL (80.0-100.0); Macrocytosis Moderate; Mean Platelet Volume 8.4; Non-African American GFR(CKD) 87 (>60 ml/min/1.73 sqM); Platelet Count 150 k/uL (150-450); Potassium 3.4 mmol/L (3.5-5.1); RBC 3.11 m/uL (4.30-5.90); RDW 12.7 % (11.5-15.5); Sodium 137 mmol/L (137-145); WBC 16.2 k/uL (3.8-10.6)
[2019-10-25] MEDS: oxyCODONE-APAP 5-325MG 1 EACH TAB PO PRN ×2 (08:04→20:27)
[2019-10-25] MEDS: PANTOPRAZOLE 40 MG/10 ML VIAL IV SCH (08:05)
[2019-10-25] MEDS: cycloSPORINE 0.05% OPHTH 0.4 ML DROPERETTE BOTH EYES SCH ×2 (08:05→21:24)
[2019-10-25] MEDS: APIXABAN 5 MG TAB PO SCH ×2 (08:05→20:23)
[2019-10-25] MEDS: THIAMINE 100 MG TAB PO SCH ×2 (08:05→17:34)
[2019-10-25] MEDS: PRIMIDONE 50 MG TAB PO SCH ×2 (08:05→21:24)
[2019-10-25] MEDS: SOTALOL 80 MG TAB PO SCH ×2 (08:05→21:24)
[2019-10-25 08:27] LABS: Eosinophils # (M) 0.32 k/uL (0-0.7); Lymphocytes # (M) 1.78 k/uL (1.0-4.8); Monocytes # (M) 0.65 k/uL (0-1.0); Neutrophils # (M) 13.45 k/uL (1.3-7.7); Neutrophils % (M) 83 %; Nucleated Red Blood Cells 0 /100 WBC (0-0); Total Cells Counted 100
[2019-10-25] MEDS ORDERED: POTASSIUM CHLORIDE ER 20 MEQ TAB.ER PO STA (12:33)
--- NOTE | 2019-10-25 12:35 | P.PN ---
Subjective Progress Note Date: 10/25/19 Patient is doing well today. No acute events overnight reported by nursing staff. He is anxious about getting out of the hospital. Objective - Vital Signs Vital signs: Vital Signs Temp 98.2 F 10/25/19 11:52 Pulse 68 10/25/19 11:52 Resp 17 10/25/19 11:52 BP 135/82 10/25/19 11:52 Pulse Ox 97 10/25/19 11:52 Intake & Output 10/24/19 10/25/19 10/25/19 18:59 06:59 18:59 Intake Total 670 Output Total 49 151 100 Balance 621 -151 -100 Intake: Intake, IV Titration 50 Amount cefTRIAXone 1 gm In 50 Sodium Chloride 0.9% 50 ml @ 100 mls/hr IVPB Q24HR [facility] Rx#:[id number] Oral 620 Output: Urine 100 Post Void Residual 49 51 100 Other: Voiding Method Diaper Diaper Diaper # Voids 1 1 - Exam General: The patient is awake and alert, in no distress Eye: there is normal conjunctiva bilaterally. Neck: The neck is supple, there is no JVD. Cardiovascular: Normal S1-S2, no S3-S4, no murmurs. Respiratory: Lungs clear to auscultation bilaterally Gastrointestinal: Abdomen is soft, nontender Musculoskeletal: There is no pedal edema. Neurological:. Speech is normal. Skin: Skin is warm and dry - Labs CBC & Chem 7: 10/25/19 06:00 10/25/19 06:00 Labs: Abnormal Lab Results - Last 24 Hours (Table) 10/25/19 10/25/19 Range/Units 06:00 06:00 WBC 16.2 H (3.8-10.6) k/uL RBC 3.11 L (4.30-5.90) m/uL Hgb 10.5 L (13.0-17.5) gm/dL Hct 33.5 L (39.0-53.0) % MCV 107.7 H (80.0-100.0) fL Neutrophils # (Manual) 13.45 H (1.3-7.7) k/uL Potassium 3.4 L (3.5-5.1) mmol/L Chloride 109 H (98-107) mmol/L Creatinine 0.65 L (0.66-1.25) mg/dL Calcium 7.6 L (8.4-10.2) mg/dL Microbiology - Last 24 Hours (Table) 10/23/19 14:00 Urine Culture - Preliminary Urine,Catheterized Gram Neg Bacilli 10/23/19 16:10 Blood Culture - Preliminary Blood No Growth after 24 hours Assessment and Plan Assessment: 1. UTI: Started on IV ceftriaxone. Awaiting urine culture to finalize. Bladder scan showed no evidence of retention 2. Sepsis without septic shock, lactic acid is normal. Throat with IV fluid hydration and antibiotic. Blood culture negative to date. WBC count pending down 3. Bilateral shoulder and hip pain, most likely secondary to chronic arthritis. X-ray in the emergency room showed no acute findings. Seen and evaluated by orthopedic. Continue pain management. No intervention at this time. 4. Chronic atrial fibrillation on anticoagulation with Eliquis 5. Underlying coronary artery disease: Continue medical management 6. History of hypertension and hyperlipidemia 7. CODE STATUS: Patient is full code. Discussed with him in the ER. 8. Physical debility, consulted PT/OT 9. Alcohol abuse, patient admitted that he drinks 2 drinks of liquor daily. Advised to cut down. CIWA protocol as needed. Continue current management. Awaiting urine cultures to finalize. [facility] versus home with 24 hours care awaiting social sciences research scientist to finalize the plan. Anticipate discharge home tomorrow.
[2019-10-25] MEDS: TAMSULOSIN 0.4 MG CAP.ER.24H PO SCH (17:34)
[2019-10-25] MEDS: ATORVASTATIN 10 MG TAB PO SCH (20:23)
[2019-10-25] MEDS: MONTELUKAST 10 MG TAB PO SCH (20:23)
[2019-10-26] MEDS: SODIUM CHLORIDE 0.9% 1,000 ML IV SCH ×4 (05:03→08:26)
[2019-10-26 07:06] LABS: African American GFR (CKD) >90 (>60 ml/min/1.73 sqM); Anion Gap 2 mmol/L; Blood Urea Nitrogen 19 mg/dL (9-20); Calcium 8.1 mg/dL (8.4-10.2); Carbon Dioxide 25 mmol/L (22-30); Chloride 109 mmol/L (98-107); Glucose 108 mg/dL (74-99); Non-African American GFR(CKD) 87 (>60 ml/min/1.73 sqM); Potassium 3.7 mmol/L (3.5-5.1); Sodium 136 mmol/L (137-145)
[2019-10-26 07:30] LABS: Basophils % (A) 0 %; Eosinophils # (A) 0.6 k/uL (0-0.7); Eosinophils % (A) 6 %; HCT 34.1 % (39.0-53.0); HGB 11.2 gm/dL (13.0-17.5); Lymphocytes # (A) 1.2 k/uL (1.0-4.8); Lymphocytes % (A) 11 %; MCH 35.2 pg (25.0-35.0); MCHC 32.9 g/dL (31.0-37.0); MCV 107.1 fL (80.0-100.0); Macrocytosis Moderate; Mean Platelet Volume 8.3; Monocytes # (A) 0.7 k/uL (0-1.0); Monocytes % (A) 6 %; Neutrophils # (A) 8.7 k/uL (1.3-7.7); Neutrophils % (A) 76 %; Platelet Count 193 k/uL (150-450); RBC 3.18 m/uL (4.30-5.90); RDW 12.6 % (11.5-15.5); WBC 11.5 k/uL (3.8-10.6)
[2019-10-26] MEDS: SOTALOL 80 MG TAB PO SCH (08:25)
[2019-10-26] MEDS: APIXABAN 5 MG TAB PO SCH (08:25)
[2019-10-26] MEDS: THIAMINE 100 MG TAB PO SCH (08:25)
[2019-10-26] MEDS: cycloSPORINE 0.05% OPHTH 0.4 ML DROPERETTE BOTH EYES SCH (08:25)
[2019-10-26] MEDS: PRIMIDONE 50 MG TAB PO SCH (08:25)
[2019-10-26] MEDS: PANTOPRAZOLE 40 MG/10 ML VIAL IV SCH (08:26)
[2019-10-26 12:00] VITALS: BP 137/76; PULSE 67; RESP 18; TEMP 98.2
--- NOTE | 2019-10-26 12:51 | P.HPIM ---
History of Present Illness H&P Date: 10/26/19 Past Medical History Past Medical History: Asthma, Coronary Artery Disease (CAD), GERD/Reflux, Hyperlipidemia, Hypertension, Osteoarthritis (OA), Syncope Additional Past Medical History / Comment(s): A fib, Pacemaker insertion, SYNCOPE /RENAL FALIURE -RESOLVED, GLAUCOMA, CATARACTS(HAD SX - IMPLANTS), ARTHRITIS KNEES,HIPS, LT SHOULDER, BACK PAIN History of Any Multi-Drug Resistant Organisms: MRSA Date of last positivie culture/infection: 08/06/16 MDRO Source:: Right Axilla Past Surgical History: Appendectomy, Heart Catheterization, Pacemaker, Tonsillectomy Additional Past Surgical History / Comment(s): BILATERAL KNEE REPLACED, LEFT HIP REPLACED, JAN CATARACT-LENS IMPLANTS,I&D RT AXILLA(MRSA), RT EYE SX FOR GLAUCOMA Past Anesthesia/Blood Transfusion Reactions: No Reported Reaction Type of Cardiac Device: Unknown Device Placement Date:: unknown Past Psychological History: No Psychological Hx Reported Additional Psychological History / Comment(s): LIVE WITH HIS , NO PETS. 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 LT COL. WORKED IN [employer]. Smoking Status: Never smoker Past Alcohol Use History: None Reported Additional Past Alcohol Use History / Comment(s): PT STATED HE NEVER SMOKED. DRINKS 1-2 DRINKS PER DAY, NO DRUG USE. Past Drug Use History: None Reported - Past Family History Mother Family Medical History: Dementia Father Family Medical History: No Reported History Medications and Allergies Home Medications Medication Instructions Recorded Confirmed Type Montelukast [Singulair] 10 mg PO HS 09/25/14 10/23/19 History Simvastatin [Zocor] 20 mg PO HS 09/25/14 10/23/19 History Sotalol [Betapace] 80 mg PO BID 09/25/14 10/23/19 History Multivitamins, Thera [Multivitamin 1 tab PO QAM 08/14/16 10/23/19 History (formulary)] Cetirizine HCl [Zyrtec] 10 mg PO QAM 10/27/16 10/23/19 History Apixaban [Eliquis] 5 mg PO BID #60 tab 10/29/16 10/23/19 Rx Tamsulosin [Flomax] 0.4 mg PO W/SUPPER 03/15/18 10/23/19 History Albuterol Sulfate [Proair Hfa] 2 puff INHALATION RT-Q6H PRN 10/23/19 10/23/19 History Biotin 5 mg PO DAILY 10/23/19 10/23/19 History Calcium Carbonate [Calcium] 300 mg PO DAILY 10/23/19 10/23/19 History Cholecalciferol [Vitamin D3 (25 1,000 unit PO DAILY 10/23/19 10/23/19 History Mcg = 1000 Iu)] Cyanocobalamin (Vitamin B-12) 5,000 mcg PO DAILY 10/23/19 10/23/19 History [Vitamin B-12] Fluticasone Propionate [Flonase 2 spray EA NOSTRIL DAILY PRN 10/23/19 10/23/19 History Allergy Relief] Furosemide [Lasix] 20 mg PO DAILY PRN 10/23/19 10/23/19 History Potassium Chloride [Klor-Con 8] 8 meq PO DAILY PRN 10/23/19 10/23/19 History Prevagen 1 tab PO DAILY 10/23/19 10/23/19 History Primidone [Mysoline] 50 mg PO BID 10/23/19 10/23/19 History Vit C/E/Zn/Coppr/Lutein/Zeaxan 1 cap PO BID 10/23/19 10/23/19 History [Preservision Areds 2 Softgel] cycloSPORINE 0.05% OPHTH SOLN 2 drop BOTH EYES BID 10/23/19 10/23/19 History [Restasis] Amoxicillin/Potassium Clav 1 tab PO Q12HR #8 tab 10/26/19 Rx [Augmentin 500-125 Tablet] traMADol HCL [Ultram] 50 mg PO HS #10 tab 10/26/19 Rx Allergies Allergy/AdvReac Type Severity Reaction Status Date / Time No Known Allergies Allergy Verified 10/23/19 12:58 Physical Exam Vitals: Vital Signs Temp Pulse Resp BP Pulse Ox 10/26/19 11:59 98.2 F 67 18 137/76 97 10/26/19 05:05 98.4 F 79 20 165/89 96 10/25/19 20:54 98.3 F 74 22 156/81 97 Intake and Output 10/25/19 10/26/1910/25/20 22:59 06:59 14:59 Output Total 25 80 Balance -25 -80 Output: Urine 25 Post Void Residual 80 Other: Voiding Method Diaper Diaper Diaper Incontinent # Voids 75 4 Results CBC & Chem 7: 10/26/19 06:18 10/26/19 06:18 Labs: Abnormal Lab Results - Last 24 Hours (Table) 10/26/19 10/26/19 Range/Units 06:18 06:18 WBC 11.5 H (3.8-10.6) k/uL RBC 3.18 L (4.30-5.90) m/uL Hgb 11.2 L (13.0-17.5) gm/dL Hct 34.1 L (39.0-53.0) % MCV 107.1 H (80.0-100.0) fL MCH 35.2 H (25.0-35.0) pg Neutrophils # 8.7 H (1.3-7.7) k/uL Sodium 136 L (137-145) mmol/L Chloride 109 H (98-107) mmol/L Creatinine 0.64 L (0.66-1.25) mg/dL Glucose 108 H (74-99) mg/dL Calcium 8.1 L (8.4-10.2) mg/dL Microbiology - Last 24 Hours (Table) 10/23/19 14:00 Urine Culture - Final Urine,Catheterized Escherichia coli 10/23/19 16:10 Blood Culture - Preliminary Blood No Growth after 48 hours Thrombosis Risk Factor Assmnt - Choose All That Apply Each Risk Factor Represents 3 Points: Age 75 years or older Other congenital or acquired thrombophilia - If yes, enter type in comment: No Thrombosis Risk Factor Assessment Total Risk Factor Score: 3 Thrombosis Risk Factor Assessment Level: Moderate Risk
--- NOTE | 2019-10-26 12:56 | P.DS ---
Providers Date of admission: 10/23/19 15:19 Expected date of discharge: 10/26/19 Attending physician: Bartolo Julien Consults: 10/23/19 16:16 Consult Physician Routine Consulting Provider: Maxim Trent Consult Reason/Comments: Severe hip pain Do you want consulting provider notified?: Yes Primary care physician: [facility] Course: The patient is an 89-year-old male with a PMH of coronary artery disease, hyponatremia, hypertension, history of A. fib, and history of asthma with presented to the ED due to hip and shoulder pain. The patient had undergone ex tensive evaluation in the emergency room and was found to be in sepsis secondary to UTI for which she was admitted for further management. The patient was given IV antibiotics with ceftriaxone with gradual improvement. Patient was evaluated by physical therapy who recommended that the patient be transferred to a facility for subacute rehab. The patient was also evaluated by orthopedic surgery due to his significant arthritis, and was recommended for conservative management with possible re-evaluation in the future for surgical approaches. The patient's blood culture resulted in pansensitive E. coli. The patient was seen and evaluated at the bedside on the day of discharge. He was in good spirits and was eager to be discharged. He reported feeling well and denied any active complaints. He did acknowledge his weakness and inability to ambulate and was in agreement with the discharge to a care home facility for rehab. The patient will be prescribed Augmentin to complete his antibiotic course for UTI. Physical Examination General: Non-toxic, in no acute distress, appears stated age, normal weight HEENT: NC/AT, anicteric sclerae, moist conjunctiva, no lid-lag, PERRLA Cardiovascular: S1/S2 wnl, no murmurs, rubs, or gallops Lungs: Clear to auscultation, normal respiratory effort, no accessory muscle use Abdominal: Soft, non-tender, non-distended, no guarding, rebound, or rigidity Skin: Warm, dry Extremities: No edema or contractures Psychiatric: Alert and oriented to person, place and time, appropriate affect Neuro: No focal deficits noted, strength 2-3 out of 5 bilaterally Discharge diagnosis: Sepsis secondary to E. coli UTI; chronic atrial fibrillation; coronary artery disease; hypertension; hyperlipidemia; bilateral chronic joint pain A total of 35 minutes of time were spent preparing this complex discharge summary. Patient Condition at Discharge: Stable Plan - Discharge Summary New Discharge Prescriptions: New Amoxicillin/Potassium Clav [Augmentin 500-125 Tablet] 1 tab PO Q12HR #8 tab Continue Simvastatin [Zocor] 20 mg PO HS Montelukast [Singulair] 10 mg PO HS Sotalol [Betapace] 80 mg PO BID Multivitamins, Thera [Multivitamin (formulary)] 1 tab PO QAM Cetirizine HCl [Zyrtec] 10 mg PO QAM Apixaban [Eliquis] 5 mg PO BID #60 tab Tamsulosin [Flomax] 0.4 mg PO W/SUPPER Cyanocobalamin (Vitamin B-12) [Vitamin B-12] 5,000 mcg PO DAILY Cholecalciferol [Vitamin D3 (25 Mcg = 1000 Iu)] 1,000 unit PO DAILY Vit C/E/Zn/Coppr/Lutein/Zeaxan [Preservision Areds 2 Softgel] 1 cap PO BID cycloSPORINE 0.05% OPHTH SOLN [Restasis] 2 drop BOTH EYES BID Fluticasone Propionate [Flonase Allergy Relief] 2 spray EA NOSTRIL DAILY PRN PRN Reason: Allergy Symptoms Albuterol Sulfate [Proair Hfa] 2 puff INHALATION RT-Q6H PRN PRN Reason: Shortness Of Breath Prevagen 1 tab PO DAILY Primidone [Mysoline] 50 mg PO BID Biotin 5 mg PO DAILY Furosemide [Lasix] 20 mg PO DAILY PRN PRN Reason: Edema Potassium Chloride [Klor-Con 8] 8 meq PO DAILY PRN PRN Reason: TAKES W/ LASIX Calcium Carbonate [Calcium] 300 mg PO DAILY traMADol HCL [Ultram] 50 mg PO HS #10 tab Discharge Medication List Montelukast [Singulair] 10 mg PO HS 09/25/14 [History] Simvastatin [Zocor] 20 mg PO HS 09/25/14 [History] Sotalol [Betapace] 80 mg PO BID 09/25/14 [History] Multivitamins, Thera [Multivitamin (formulary)] 1 tab PO QAM 08/14/16 [History] Cetirizine HCl [Zyrtec] 10 mg PO QAM 10/27/16 [History] Apixaban [Eliquis] 5 mg PO BID #60 tab 10/29/16 [Rx] Tamsulosin [Flomax] 0.4 mg PO W/SUPPER 03/15/18 [History] Albuterol Sulfate [Proair Hfa] 2 puff INHALATION RT-Q6H PRN 10/23/19 [History] Biotin 5 mg PO DAILY 10/23/19 [History] Calcium Carbonate [Calcium] 300 mg PO DAILY 10/23/19 [History] Cholecalciferol [Vitamin D3 (25 Mcg = 1000 Iu)] 1,000 unit PO DAILY 10/23/19 [History] Cyanocobalamin (Vitamin B-12) [Vitamin B-12] 5,000 mcg PO DAILY 10/23/19 [History] Fluticasone Propionate [Flonase Allergy Relief] 2 spray EA NOSTRIL DAILY PRN 10/23/19 [History] Furosemide [Lasix] 20 mg PO DAILY PRN 10/23/19 [History] Potassium Chloride [Klor-Con 8] 8 meq PO DAILY PRN 10/23/19 [History] Prevagen 1 tab PO DAILY 10/23/19 [History] Primidone [Mysoline] 50 mg PO BID 10/23/19 [History] Vit C/E/Zn/Coppr/Lutein/Zeaxan [Preservision Areds 2 Softgel] 1 cap PO BID 10/23/19 [History] cycloSPORINE 0.05% OPHTH SOLN [Restasis] 2 drop BOTH EYES BID 10/23/19 [History] Amoxicillin/Potassium Clav [Augmentin 500-125 Tablet] 1 tab PO Q12HR #8 tab 10/26/19 [Rx] traMADol HCL [Ultram] 50 mg PO HS #10 tab 10/26/19 [Rx] Follow up Appointment(s)/Referral(s): Javier Zuniga MD [Primary Care Provider] - 1-2 days Discharge Disposition: TRANSFER TO SNF/ECF
== END 2019-10-26 15:33 | DRG 872 ==
LOC: EC 11:26 → SUPCPDRO 11:26 → 5NMEDONC 15:19
PROVIDERS: ADMIT Internal Medicine; ATTEND Internal Medicine
DX: A41.51 Sepsis due to Escherichia coli [E. coli] (principal); N39.0 Urinary tract infection, site not specified; I48.20 Chronic atrial fibrillation, unspecified; E78.5 Hyperlipidemia, unspecified; I25.10 Atherosclerotic heart disease of native coronary artery without angina pectoris; G89.29 Other chronic pain; I10 Essential (primary) hypertension; J45.909 Unspecified asthma, uncomplicated; F10.10 Alcohol abuse, uncomplicated; M17.0 Bilateral primary osteoarthritis of knee; Z96.1 Presence of intraocular lens; Z96.642 Presence of left artificial hip joint; Z96.653 Presence of artificial knee joint, bilateral; R53.81 Other malaise; M19.012 Primary osteoarthritis, left shoulder; M19.011 Primary osteoarthritis, right shoulder; M16.11 Unilateral primary osteoarthritis, right hip; Z11.59 Encounter for screening for other viral diseases; Z90.49 Acquired absence of other specified parts of digestive tract; Z90.89 Acquired absence of other organs; Z98.890 Other specified postprocedural states; Z95.0 Presence of cardiac pacemaker; Z98.42 Cataract extraction status, left eye; Z98.41 Cataract extraction status, right eye; Z86.14 Personal history of Methicillin resistant Staphylococcus aureus infection; Z81.8 Family history of other mental and behavioral disorders; Z79.01 Long term (current) use of anticoagulants; Z79.899 Other long term (current) drug therapy
CPT/HCPCS: 36415; 70450; 71046; 72100; 72170; 73521; 80048; 80053; 81001; 82550; 83605; 83735; 85025; 87040; 87077; 87086; 87186; 93005; 96361; 96374; 96375; 99285